=== PATIENT | male | born 1960 | race Caucasian/White ===

== ENCOUNTER 2017-05-04 10:05 | Emergency (ER) | payer OTHER ==
[2017-05-04] MEDS ORDERED: Ketorolac INJ* 30 MG/ML 1 ML VIAL IV PUSH ONE (10:51)
[2017-05-04 10:59] LABS: ABS Basophils 0.1 10^3/ul (0-0.2); ABS Eosinophils 0.2 10^3/ul (0-0.6); ABS Monocytes 0.5 10^3/ul (0-0.8); ABS Nucleated RBC 0 10^3/ul; Hematocrit 43 % (42-52); Hemoglobin 14.7 g/dl (14.0-18.0); Lymphocyte % 29.7 % (25-47); Mean Corpuscular HGB Conc 35 g/dl (31-36); Mean Corpuscular Hemoglobin 30 pg (27-31); Mean Corpuscular Volume 88 fL (80-94); Mean Platelet Volume 8 um3 (7.4-10.4); Nucleated Red Blood Cells % 0; Platelet Count 248 10^3/ul (150-450); Red Blood Count 4.84 10^6/ul (4.0-5.4); Red Cell Distribution Width 12 % (10.5-15); White Blood Count 6.8 10^3/ul (3.5-10.8)
--- NOTE | 2017-05-04 11:11 | RAD ---
HISTORY: Chest pain COMPARISONS: February 25, 2015 VIEWS: 1: frontal portable view of the chest at 11:00 AM FINDINGS: LINES AND TUBES: None. CARDIOMEDIASTINAL SILHOUETTE: The cardiomediastinal silhouette is normal for portable technique. PLEURA: The costophrenic angles are sharp. No pleural abnormalities are noted. LUNG PARENCHYMA: The lungs are clear. ABDOMEN: The upper abdomen is clear. There is no subphrenic gas. BONES AND SOFT TISSUES: No bone or soft tissue abnormalities are noted. IMPRESSION: NO ACTIVE CARDIOPULMONARY DISEASE.
[2017-05-04 11:21] LABS: EGFR Non-African American 106.5 (>60)
[2017-05-04 15:53] VITALS: BP 142/82
--- NOTE | 2017-05-05 09:13 | ED ---
Deepak Arboleda Angela, scribed for Tk Rodney MD on 05/04/17 at 1047 . HPI Chest Pain - HPI Summary HPI Summary: This pt is a 57 y/o male presenting to [facility] c/o left sided chest pain today. Pt states this morning while at work he developed chest pain. His chest pain is described as sharp. Pt rates his pain 9/10 in severity. Pt additionally reports he is mildly SOB. Denies nausea, vomiting, dizziness. Pt is a current tobacco smoker. - History of Current Complaint Chief Complaint: EDChestPainROMI Time Seen by Provider: 05/04/17 10:34 Hx Obtained From: Patient Onset/Duration: Started Hours Ago, Still Present Timing: Lasting Hours Current Severity: Severe Pain Intensity: 9 Pain Scale Used: 0-10 Numeric Chest Pain Location: Left Anterior Chest Pain Radiates: No Character: Sharp/Stabbing - Sharp Aggravating Factor(s): Nothing Alleviating Factor(s): Nothing Associated Signs and Symptoms: Positive: Chest Pain, Shortness of Breath. Negative: Dizziness, Fever, Nausea, Vomiting - Allergy/Home Medications Allergies/Adverse Reactions: Allergies Allergy/AdvReac Type Severity Reaction Status Date / Time No Known Allergies Allergy Verified 06/24/13 13:30 PMH/Surg Hx/FS Hx/Imm Hx Endocrine/Hematology History: Denies: Hx Diabetes Cardiovascular History: Reports: Hx Hypertension Infectious Disease History: No Infectious Disease History: Denies: Traveled Outside the [place] in Last 30 Days - Family History Known Family History: Positive: Diabetes - Father - Social History Alcohol Use: Occasionally Substance Use Type: Reports: None Review of Systems Negative: Fever, Chills Positive: Chest Pain Positive: Shortness Of Breath Negative: Vomiting, Nausea Neurological: Other - NEG: dizziness All Other Systems Reviewed And Are Negative: Yes Physical Exam - Summary Physical Exam Summary: VITAL SIGNS: Reviewed. GENERAL: Patient is a well-developed and nourished male who is lying comfortable in the stretcher. Patient is not in any acute respiratory distress. HEAD AND FACE: No signs of trauma. No ecchymosis, hematomas or skull depressions. No sinus tenderness. EYES: PERRLA, EOMI x 2, No injected conjunctiva, no nystagmus. EARS: Hearing grossly intact. Ear canals and tympanic membranes are within normal limits. MOUTH: Oropharynx within normal limits. NECK: Supple, trachea is midline, no adenopathy, no JVD, no carotid bruit, no c- spine tenderness, neck with full ROM. CHEST: Symmetric. Mild tenderness in the left rib cage. LUNGS: Clear to auscultation bilaterally. No wheezing or crackles. CVS: Regular rate and rhythm, S1 and S2 present, no murmurs or gallops appreciated. ABDOMEN: Soft, non-tender. No signs of distention. No rebound no guarding, and no masses palpated. Bowel sounds are normal. EXTREMITIES: FROM in all major joints, no edema, no cyanosis or clubbing. NEURO: Alert and oriented x 3. No acute neurological deficits. Speech is normal and follows commands. SKIN: Dry and warm Triage Information Reviewed: Yes Vital Signs On Initial Exam: Initial Vitals Temp Pulse Resp BP Pulse Ox 97.7 F 84 18 165/95 94 05/04/17 10:16 05/04/17 10:16 05/04/17 10:16 05/04/17 10:16 05/04/17 10:16 Vital Signs Reviewed: Yes Diagnostics - Vital Signs Vital Signs Temp Pulse Resp BP Pulse Ox 05/04/17 10:16 97.7 F 84 18 165/95 94 - Laboratory Lab Results: Lab Results 05/04/17 05/04/17 05/04/17 Range/Units 10:45 10:45 10:45 WBC 6.8 (3.5-10.8) 10^3/ul RBC 4.84 (4.0-5.4) 10^6/ul Hgb 14.7 (14.0-18.0) g/dl Hct 43 (42-52) % MCV 88 (80-94) fL MCH 30 (27-31) pg MCHC 35 (31-36) g/dl RDW 12 (10.5-15) % Plt Count 248 (150-450) 10^3/ul MPV 8 (7.4-10.4) um3 Neut % (Auto) 58.7 (38-83) % Lymph % (Auto) 29.7 (25-47) % [place] % (Auto) 7.6 H (0-7) % Eos % (Auto) 3.0 (0-6) % Baso % (Auto) 1.0 (0-2) % Absolute Neuts (auto) 4.0 (1.5-7.7) 10^3/ul Absolute Lymphs (auto) 2.0 (1.0-4.8) 10^3/ul Absolute Monos (auto) 0.5 (0-0.8) 10^3/ul Absolute Eos (auto) 0.2 (0-0.6) 10^3/ul Absolute Basos (auto) 0.1 (0-0.2) 10^3/ul Absolute Nucleated RBC 0 10^3/ul Nucleated RBC % 0 Sodium 135 (133-145) mmol/L Potassium 4.0 (3.5-5.0) mmol/L Chloride 103 (101-111) mmol/L Carbon Dioxide 26 (22-32) mmol/L Anion Gap 6 (2-11) mmol/L BUN 10 (6-24) mg/dL Creatinine 0.76 (0.67-1.17) mg/dL Est GFR ( Amer) 136.9 (>60) Est GFR (Non-Af Amer) 106.5 (>60) BUN/Creatinine Ratio 13.2 (8-20) Glucose 109 H (70-100) mg/dL Lactic Acid (0.5-2.0) mmol/L Calcium 9.1 (8.6-10.3) mg/dL Magnesium 2.1 (1.9-2.7) mg/dL Total Bilirubin 0.60 (0.2-1.0) mg/dL AST 27 (13-39) U/L ALT 44 (7-52) U/L Alkaline Phosphatase 77 (34-104) U/L Total Creatine Kinase 103 (10-223) U/L CK-MB (CK-2) 2.6 (0.6-6.3) ng/mL Troponin I 0.00 (<0.04) ng/mL B-Natriuretic Peptide 25 ( - 100) pg/mL Total Protein 7.1 (6.4-8.9) g/dL Albumin 4.3 (3.2-5.2) g/dL Globulin 2.8 (2-4) g/dL Albumin/Globulin Ratio 1.5 (1-3) TSH 2.86 (0.34-5.60) mcIU/mL Thyroxine (T4) 6.34 (6.09-12.23) mcg/mL 05/04/17 05/04/17 Range/Units 10:45 14:53 WBC (3.5-10.8) 10^3/ul RBC (4.0-5.4) 10^6/ul Hgb (14.0-18.0) g/dl Hct (42-52) % MCV (80-94) fL MCH (27-31) pg MCHC (31-36) g/dl RDW (10.5-15) % Plt Count (150-450) 10^3/ul MPV (7.4-10.4) um3 Neut % (Auto) (38-83) % Lymph % (Auto) (25-47) % [place] % (Auto) (0-7) % Eos % (Auto) (0-6) % Baso % (Auto) (0-2) % Absolute Neuts (auto) (1.5-7.7) 10^3/ul Absolute Lymphs (auto) (1.0-4.8) 10^3/ul Absolute Monos (auto) (0-0.8) 10^3/ul Absolute Eos (auto) (0-0.6) 10^3/ul Absolute Basos (auto) (0-0.2) 10^3/ul Absolute Nucleated RBC 10^3/ul Nucleated RBC % Sodium (133-145) mmol/L Potassium (3.5-5.0) mmol/L Chloride (101-111) mmol/L Carbon Dioxide (22-32) mmol/L Anion Gap (2-11) mmol/L BUN (6-24) mg/dL Creatinine (0.67-1.17) mg/dL Est GFR ( Amer) (>60) Est GFR (Non-Af Amer) (>60) BUN/Creatinine Ratio (8-20) Glucose (70-100) mg/dL Lactic Acid 0.8 (0.5-2.0) mmol/L Calcium (8.6-10.3) mg/dL Magnesium (1.9-2.7) mg/dL Total Bilirubin (0.2-1.0) mg/dL AST (13-39) U/L ALT (7-52) U/L Alkaline Phosphatase (34-104) U/L Total Creatine Kinase (10-223) U/L CK-MB (CK-2) (0.6-6.3) ng/mL Troponin I 0.00 (<0.04) ng/mL B-Natriuretic Peptide ( - 100) pg/mL Total Protein (6.4-8.9) g/dL Albumin (3.2-5.2) g/dL Globulin (2-4) g/dL Albumin/Globulin Ratio (1-3) TSH (0.34-5.60) mcIU/mL Thyroxine (T4) (6.09-12.23) mcg/mL Result Diagrams: 05/04/17 10:45 05/04/17 10:45 Lab Statement: Any lab studies that have been ordered have been reviewed, and results considered in the medical decision making process. - Radiology Chest XR Xray Interpretation: No Acute Changes - IMPRESSION: No active cardiopulmonary disease. Dr. Rodney has reviewed this radiology report. Radiology Interpretation Completed By: Radiologist - EKG 10:27 Cardiac Rate: NL EKG Rhythm: Sinus Rhythm - at 82 bpm EKG Interpretation: No ST elevations. Chest Pain Course/Dx - Course Assessment/Plan: This pt is a 57 y/o male presenting to [facility] c/o left sided chest pain today. Pt states this morning while at work he developed chest pain. His chest pain is described as sharp. Pt rates his pain 9/10 in severity. Pt additionally reports he is mildly SOB. Denies nausea, vomiting, dizziness. Pt is a current tobacco smoker. Test results without any significant abnormalities except for glucose of 109. Two troponins, 4 hours apart, are both 0.00. Chest XR shows no active cardiopulmonary disease. EKG shows no ST elevation. In the ED course the pt was given Toradol for the pain and his symptoms resolved. He reports he is feeling better. Therefore, the pt will be discharged to home with follow up from his PCP. He is instructed to return to the ED for any worsening or new symptoms. Pt is hemodynamically stable, alert and oriented x3. - Chest Pain Differential Diagnosis/HQI/PQRI: Acute [place], ACS, Angina, CHF, Chest Wall, GI Disease, Lower Respiratory Infection - Diagnoses Provider Diagnoses: Chest pain Discharge - Discharge Plan Condition: Stable Disposition: HOME Patient Education Materials: Chest Pain (ED) Referrals: Tk Ortez MD [Primary Care Provider] - 3 Days Additional Instructions: Please follow up with your primary care provider. RETURN TO THE ED FOR ANY WORSENING SYMPTOMS. The documentation as recorded by the Deepak schaffer Angela accurately reflects the service I personally performed and the decisions made by , Tk Rodney MD.
== END 2017-05-04 15:52 | disposition home or self-care (01) ==
LOC: ED 10:05
DX: R07.9 Chest pain, unspecified (principal); R06.02 Shortness of breath; F17.200 Nicotine dependence, unspecified, uncomplicated
CPT/HCPCS: 36415; 71045; 80053; 82550; 82553; 83605; 83735; 83880; 84436; 84443; 84484; 85025; 93005; 96374; 99283; J1885

== ENCOUNTER 2017-07-17 04:10 | Emergency (ER) | payer OTHER ==
[2017-07-17] MEDS ORDERED: Naproxen TAB* 250 MG PO ONE (05:07)
[2017-07-17] MEDS ORDERED: Triamcinolone Acetonide* 40 MG/ML 1 ML VIAL IM ONE (05:07)
[2017-07-17 05:44] VITALS: BP 156/91
--- NOTE | 2017-07-17 05:53 | ED ---
Evangelina Arboleda Rebecca, scribed for Alvaro Almaguer MD on 07/17/17 at 0508 . Lower Extremity - HPI Summary HPI Summary: Pt is a 57 y/o M who presents to ED c/o L hip pain. Sx began yesterday morning and has been gradually worsening. Pain is located on the lateral side of the left hip and is moderate, ranked 7/10. [employer] and has not taken any medications for it. Sx aggravated by rest, alleviated by nothing. Denies dysuria, numbness, weakness. 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 Notes that while running, he slipped and fell into the grass 2 days ago. - History of Current Complaint Chief Complaint: EDHipPelvisInjury Stated Complaint: FALL/PAIN Time Seen by Provider: 07/17/17 04:20 Hx Obtained From: Patient Onset of Pain: Days - 1 day, Prior to Arrival Onset/Duration: Still Present Severity Currently: Moderate Pain Intensity: 7 Pain Scale Used: 0-10 Numeric Location: Is Discrete @ - L hip Associated Signs And Symptoms: Positive: Negative Aggravating Factor(s): Other - Rest Alleviating Factor(s): Nothing Able to Bear Weight: Yes - Allergies/Home Medications Allergies/Adverse Reactions: Allergies Allergy/AdvReac Type Severity Reaction Status Date / Time No Known Allergies Allergy Verified 07/17/17 04:19 PMH/Surg Hx/FS Hx/Imm Hx Endocrine/Hematology History: Denies: Hx Diabetes Cardiovascular History: Reports: Hx Hypertension Infectious Disease History: No Infectious Disease History: Denies: Traveled Outside the [place] in Last 30 Days - Family History Known Family History: Positive: Diabetes - Father - Social History Alcohol Use: Occasionally Substance Use Type: Reports: None Smoking Status (MU): Never Smoked Tobacco Review of Systems Negative: dysuria Positive: Arthralgia - L hip pain Negative: Weakness, Numbness All Other Systems Reviewed And Are Negative: Yes Physical Exam - Summary Physical Exam Summary: Appearance: Well appearing, no pain distress Skin: warm, dry, reflects adequate perfusion Head/face: normal Eyes: EOMI, GAYLE ENT: normal Neck: supple, non-tender Respiratory: CTA, breath sounds present Cardiovascular: RRR, pulses symmetrical Abdomen: non-tender, soft Bowel Sounds: present Musculoskeletal: strength/ROM intact, pain to palpation just below the greater trochanter of the left hip Neuro: normal, sensory motor intact, A&Ox3 Triage Information Reviewed: Yes Vital Signs On Initial Exam: Initial Vitals Temp Pulse Resp BP Pulse Ox 98.2 F 98 18 162/104 95 07/17/17 04:15 07/17/17 04:15 07/17/17 04:15 07/17/17 04:15 07/17/17 04:15 Vital Signs Reviewed: Yes Procedures - Procedure Summary Procedure Summary: Injection of trochanteric bursa: Reason: Left trochanteric bursitis Description: The area overlying the left greater trochanter was cleaned with alcohol. The area was injected with a mixture of 40 mg of Kenalog and 0.5 cc of 0.5% bupivacaine. He tolerated this well without complication. Diagnostics - Vital Signs Vital Signs Temp Pulse Resp BP Pulse Ox 07/17/17 04:15 98.2 F 98 18 162/104 95 - Laboratory Lab Statement: Any lab studies that have been ordered have been reviewed, and results considered in the medical decision making process. - Radiology Hip/Pelvis XR Xray Interpretation: No Acute Changes - Limited view of ramus due to lead. The hip was negative. Radiology Interpretation Completed By: ED Physician Re-Evaluation - Re-Evaluation First Eval Re-Evaluation Time: 05:34 Comment: Pt is doing well, injected with Kenolog. Lower Extremity Course/Dx - Course Course Of Treatment: X-ray is negative. The patient has no rash or lesion in the site of discomfort. The pain is at the site of the trochanteric bursa. This was injected. He will follow up with his primary care physician and is placed on NSAID. - Diagnoses Provider Diagnoses: Trochanteric bursitis Discharge - Sign-Out/Discharge Documenting (check all that apply): Discharge/Admit/Transfer - Discharge - Discharge Plan Condition: Improved Disposition: HOME Prescriptions: Naproxen [Naproxen 500 mg tab] 500 mg PO BID PRN #10 tablet.dr PRITCHARD Reason: Pain Patient Education Materials: Hip Bursitis (ED) Forms: *Work Release Referrals: Tk Ortez MD [Primary Care Provider] - Additional Instructions: Ice sore area. Return with fever, worse or other concerns. Call your doctor today to schedule follow-up. - Billing Disposition and Condition Condition: IMPROVED Disposition: HOME The documentation as recorded by the Evangelina schaffer Rebecca accurately reflects the service I personally performed and the decisions made by me, Alvaro Almaguer MD.
--- NOTE | 2017-07-17 08:02 | RAD ---
INDICATION: Right hip pain COMPARISON: None TECHNIQUE: An AP view of the pelvis and AP views of the hip in neutral and abducted position were obtained FINDINGS: Bones: There are no acute bony findings. Note that the inferior pelvis to include the symphysis and pubic rami are incompletely evaluated on the pelvic image due to the lead shield. There is near complete evaluation of the entire pelvis on the subsequent hip series, however. Joint spaces: The hips articulate normally. The joint spaces are preserved. SI joints/symphysis: The SI joints and symphysis are intact. There is mild sclerosis about the symphysis pubis. Other: None IMPRESSION: NO ACUTE PLAIN RADIOGRAPHIC ABNORMALITIES.
== END 2017-07-17 05:45 | disposition home or self-care (01) ==
LOC: ED 04:10
DX: M70.62 Trochanteric bursitis, left hip (principal); M25.552 Pain in left hip
CPT/HCPCS: 96372; 99282; A9270-GY; J3301

== ENCOUNTER 2017-12-15 07:04 | Emergency (ER) | payer OTHER ==
[2017-12-15] MEDS ORDERED: Morphine INJ** 4 MG/ML 1 ML CARPUJECT IV ONE ×2 (07:16→07:55)
--- NOTE | 2017-12-15 07:19 | ED ---
Back Pain - HPI Summary HPI Summary: Pt is a 57 y/o M who presents to ED c/o upper right sided back pain s/p a 20 feet fall from a tree 30 mins prior to arrival to [facility]. He was able to drive himself to hospital. Notes right arm and wrist pain as well. Rates his pain 10/ 10 in severity. Denies injuring his legs or hips from the fall. Denies headache , dizziness, neck pain, head injury or LOC. No medications or blood thinners. - History of Current Complaint Chief Complaint: EDTraumaMultiple Stated Complaint: FALL Hx Obtained From: Patient Onset/Duration: Lasting Minutes, Still Present Onset/Duration: Started Minutes Ago Timing: Constant Back Pain Location: Is Discrete @ - upper right back pain Severity Currently: Severe Pain Intensity: 10 Pain Scale Used: 0-10 Numeric Associated Signs And Symptoms: Positive: Other - right sided back pain, right arm and wrist pain - Allergies/Home Medications Allergies/Adverse Reactions: Allergies Allergy/AdvReac Type Severity Reaction Status Date / Time No Known Allergies Allergy Verified 12/15/17 07:18 PMH/Surg Hx/FS Hx/Imm Hx Endocrine/Hematology History: Denies: Hx Diabetes Cardiovascular History: Reports: Hx Hypertension - Family History Known Family History: Positive: Diabetes - Father - Social History Alcohol Use: Occasionally Substance Use Type: Reports: None Smoking Status (MU): Never Smoked Tobacco Review of Systems Positive: Other - upper right sided back pain, right arm and wrist pain, NEGATIVE: leg pain, hip pain, head injury Neurological: Other - NEGATIVE: dizziness Negative: Headache, Syncope All Other Systems Reviewed And Are Negative: Yes Physical Exam - Summary Physical Exam Summary: Appearance: Well appearing, no pain distress Skin: warm, dry, reflects adequate perfusion Head/face: normal Eyes: EOMI, GAYLE ENT: mucous membranes moist Neck: supple, non-tender Respiratory: CTA, breath sounds present Cardiovascular: Good pulses and extremities and neurovascular intact. RRR, pulses symmetrical Abdomen: no abdominal pain or RUQ tenderness, non-tender, soft Bowel Sounds: present Musculoskeletal: Tenderness and swelling in elbow and radial wrist, tenderness throughout lateral right chest wall, no bruising on chest wall Neuro: normal, sensory motor intact, A&Ox3 Triage Information Reviewed: Yes Vital Signs Reviewed: Yes Procedures - Splinting Right Upper Extremity Location: right upper extremity from wrist through upper arm Hand-Made Type: orthoglass Splint: posterior Pre-Proc Neuro Vasc Exam: normal Post-Proc Neuro Vasc Exam: normal Diagnostics - Laboratory Result Diagrams: 12/15/17 07:44 12/15/17 07:44 Lab Statement: Any lab studies that have been ordered have been reviewed, and results considered in the medical decision making process. - Radiology CXR Radiology Interpretation Completed By: Radiologist - No active cardiopulmonary disease. ED Physician reviewed this report. Right Elbow X Ray Radiology Interpretation Completed By: Radiologist - IMPRESSION: Fracture dislocation of the elbow, involving the proximal radius and proximal ulna. ED Physician reviewed this report. Right Wrist X Ray Radiology Interpretation Completed By: Radiologist - IMPRESSION: Status post internal fixation of the distal radius with chronic posttraumatic deformity of the wrist. No acute osseous injury. ED Physician reviewed this report. Right Shoulder X Ray Radiology Interpretation Completed By: Radiologist - No acute osseous injury. ED Physician reviewed this report. - CT CT Cervical Spine CT Interpretation Completed By: Radiologist - IMPRESSION: MILD DEGENERATIVE DISC DISEASE AND OSTEOARTHRITIS MOST PRONOUNCED AT C5-C6. NO ACUTE OSSEOUS INJURY TO THE CERVICAL SPINE. ED Physician reviewed this report. CT Chest/Abd/Pel CT Interpretation Completed By: Radiologist - IMPRESSION: 1. NONDISPLACED FRACTURES OF THE RIGHT CLAVICLE, RIGHT SEVENTH RIB, RIGHT EIGHTH RIB, AND STERNUM. 2. ATHEROSCLEROSIS. ED Physician reviewed this report. Brain CT CT Interpretation Completed By: Radiologist - IMPRESSION: NO ACUTE INTRACRANIAL PATHOLOGY, THOUGH THE PRESENCE OF INTRAVENOUS CONTRAST LIMITS THE SENSITIVITY FOR SUBARACHNOID HEMORRHAGE. ED Physician reviewed this report. - EKG 9:16 Cardiac Rate: NL - 82 bpm EKG Rhythm: Sinus Rhythm EKG Interpretation: normal axis, normal interval, Q wave on lead III Re-Evaluation - Re-Evaluation First Eval Re-Evaluation Time: 10:00 Change: Improved Second Eval Re-Evaluation Time: 11:16 Change: Improved Back Pain Course/Dx - Course Course Of Treatment: Patient presents with significant upper extremity discomfort after falling out of a tree stand. He has no difficulty in breathing and normal breath sounds bilateral despite pain in his right chest. He reports no injury to his head or neck and he did not lose consciousness. Abdomen is soft without tenderness but there is tenderness in the area of the ribs just overlying the right upper quadrant/liver. CT scan of the chest abdomen pelvis with contrast reveals rib fractures in ribs 7, 8, sternal fracture, right clavicle fracture. Pain in the right wrist despite no fracture. Prior ORIF of this area. Fracture dislocation at the right elbow. Extremity is neurovascularly intact pre-and post posterior splint application. Head CT had been performed after the contrast and was limited for subarachnoid hemorrhage however there is no other injuries found. Again he has no headache and is neurologically intact. Discussed the care with the hospitalist who is uncomfortable given his chest injuries. He suggested the orthopedist admit the patient. Orthopedics with repair of the injury to the elbow however is not comfortable with the chest injuries either. As such they've requested transfer to trauma center. Transfer was arranged to [facility]. The ER physician there accepted the patient who has been stable throughout his ER course. His pain is much better controlled at this point and he is in a splint and sling of the right upper extremity. - Diagnoses Differential Diagnosis/HQI/PQRI: Positive: Other - Intra-abdominal, intrathoracic injury, Fx, Dislocation, occult bleeding, C spine inj. Provider Diagnoses: Fracture dislocation of right elbow joint, Right clavicle fracture, Multiple rib fractures, Fracture of sternum - Provider Notifications Discussed Care Of Patient With: Vladimir Mason Time Discussed With Above Provider: 08:50 Instructed by Provider To: Other - Will see the pt as soon as he is done in OR. Spoke with hospitalist Dr. Lemus at 10:00 who advised to transfer. Spoke with Dr. Johnson at 11:00 who agreed to accept pt at [facility]. - Critical Care Time Critical Care Time: 30-74 min - CCT is exclusive of separately billable procedures Discharge - Sign-Out/Discharge Documenting (check all that apply): Patient Departure - Transfer - Discharge Plan Condition: Fair Disposition: TRANS HIGHER LVL OF CARE FAC Referrals: Tk Ortez MD [Primary Care Provider] - - Billing Disposition and Condition Condition: FAIR Disposition: Trans Higher Lvl of Care Fac - Attestation Statements Document Initiated by Scribe: Yes Documenting Scribe: Cruz Boudreaux Provider For Whom Scribe is Documenting (Include Credential): Dr. Alvaro Almaguer MD Scribe Attestation: ICruz, marlineibed for Dr. Alvaro Almaguer MD on 12/15/17 at 1116. Scribe Documentation Reviewed: Yes Provider Attestation: The documentation as recorded by the scribe, Cruz Boudreaux accurately reflects the service I personally performed and the decisions made by me, Dr. Alvaro Almaguer MD
[2017-12-15] MEDS ORDERED: Morphine INJ* 4 MG/ML 1 ML SYRINGE (NEW SYRINGE VERSION) ONE (07:27)
[2017-12-15] MEDS ORDERED: Ondansetron INJ* 2 MG/ML VIAL ONE (07:49)
[2017-12-15] MEDS ORDERED: Morphine INJ* 4 MG/ML 1 ML SYRINGE (NEW SYRINGE VERSION) IV ONE (07:51)
[2017-12-15] MEDS ORDERED: Ondansetron INJ* 2 MG/ML VIAL IV ONE (07:51)
[2017-12-15 07:58] LABS: ABS Basophils 0.1 10^3/ul (0-0.2); ABS Eosinophils 0.2 10^3/ul (0-0.6); ABS Lymphocytes 2.2 10^3/ul (1.0-4.8); ABS Monocytes 0.6 10^3/ul (0-0.8); ABS Neutrophils 6.4 10^3/ul (1.5-7.7); ABS Nucleated RBC 0 10^3/ul; Eosinophil % 2.3 % (0-6); Hematocrit 45 % (42-52); Hemoglobin 15.8 g/dl (14.0-18.0); Lymphocyte % 23.1 % (25-47); Mean Corpuscular HGB Conc 35 g/dl (31-36); Mean Corpuscular Hemoglobin 31 pg (27-31); Mean Corpuscular Volume 89 fL (80-94); Mean Platelet Volume 9.3 um3 (7.4-10.4); Nucleated Red Blood Cells % 0.1; Platelet Count 332 10^3/ul (150-450); Red Blood Count 5.13 10^6/ul (4.00-5.40); Red Cell Distribution Width 13 % (10.5-15); White Blood Count 9.5 10^3/ul (3.5-10.8)
[2017-12-15] MEDS: Ondansetron INJ* 2 MG/ML VIAL IV ONE ×2 (08:03→09:18)
[2017-12-15 08:06] LABS: INR 0.81 (0.77-1.02)
[2017-12-15 08:07] LABS: EGFR Non-African American 100.4 (>60)
[2017-12-15] MEDS ORDERED: Iohexol 300* (CONTRAST) 10 ML SDV IV ONE (08:16)
[2017-12-15] MEDS ORDERED: HYDROmorphone INJ* 2 MG/ML CARPUJECT SYRINGE IV SLOW PU ONE (08:26)
[2017-12-15] MEDS ORDERED: HYDROmorphone INJ1* 1 MG/ML SYRINGE ONE (08:28)
--- NOTE | 2017-12-15 08:30 | RAD ---
HISTORY: chest injury COMPARISONS: May 04, 2017 VIEWS: 1: frontal AP view of the chest at 7:44 AM FINDINGS: LINES AND TUBES: None. CARDIOMEDIASTINAL SILHOUETTE: The cardiomediastinal silhouette is normal for portable technique. PLEURA: The costophrenic angles are sharp. No pleural abnormalities are noted. LUNG PARENCHYMA: The lung volumes are low. The lungs are clear accounting for the phase of respiration. ABDOMEN: The upper abdomen is clear. There is no subphrenic gas. BONES AND SOFT TISSUES: No bone or soft tissue abnormalities are noted. IMPRESSION: NO ACTIVE CARDIOPULMONARY DISEASE.
--- NOTE | 2017-12-15 08:31 | RAD ---
HISTORY: injury/deformity COMPARISONS: May 09, 2011 VIEWS: 4 , Frontal, lateral, and oblique views of the right wrist FINDINGS: BONE DENSITY: Normal. BONES: There is chronic posttraumatic deformity of the distal radius and distal ulna. There is no acute displaced fracture. The patient is status post internal fixation of the distal radius. There is no hardware failure or osteolysis. JOINTS: There is no arthropathy. ALIGNMENT: There is no dislocation. SOFT TISSUES: Unremarkable. OTHER FINDINGS: None. IMPRESSION: STATUS POST INTERNAL FIXATION OF THE DISTAL RADIUS WITH CHRONIC POSTTRAUMATIC DEFORMITY OF THE WRIST. NO ACUTE OSSEOUS INJURY. IF SYMPTOMS PERSIST, RECOMMEND REPEAT IMAGING
--- NOTE | 2017-12-15 08:32 | RAD ---
HISTORY: injury, right elbow injury COMPARISONS: None VIEWS: 3 , Frontal, lateral, and oblique views of the right elbow FINDINGS: BONE DENSITY: Normal. BONES: There is comminuted slightly displaced fracture of the radial head with a comminuted fracture through the coronoid process of the ulna. JOINTS: There is no arthropathy. ALIGNMENT: There is anterior dislocation of the humerus with respect to the proximal radius and ulna. SOFT TISSUES: Unremarkable. OTHER FINDINGS: None. IMPRESSION: FRACTURE DISLOCATION OF THE ELBOW, INVOLVING THE PROXIMAL RADIUS AND PROXIMAL ULNA
--- NOTE | 2017-12-15 08:46 | RAD ---
HISTORY: injury COMPARISONS: None VIEWS: 4 , Frontal internal rotation, external rotation, outlet, and axillary views of the right shoulder FINDINGS: BONE DENSITY: Normal. BONES: There is no displaced fracture. JOINTS: There is no arthropathy. ALIGNMENT: There is no dislocation. SOFT TISSUES: Unremarkable. OTHER FINDINGS: None. IMPRESSION: NO ACUTE OSSEOUS INJURY. IF SYMPTOMS PERSIST, RECOMMEND REPEAT IMAGING.
[2017-12-15] MEDS ORDERED: Pantoprazole IV* 40 MG IV ONE (09:13)
--- NOTE | 2017-12-15 09:27 | RAD ---
HISTORY: fall, serious RUE injuries COMPARISONS: None TECHNIQUE: Multiple contiguous axial CT scans were obtained of the cervical spine without intravenous contrast, with coronal and sagittal multiplanar reformations. FINDINGS: BRAIN: The visualized brain is unremarkable CENTRAL CANAL: Evaluation of the central canal is limited on CT technique; however, there is no obvious canalicular mass or epidural hemorrhage. ALIGNMENT: The alignment is normal, without subluxation or dislocation. VERTEBRAL BODIES: There is anterolateral marginal osteophyte formation most pronounced at C5-C6. There is no displaced fracture. JOINTS: There is mild uncovertebral hypertrophy. MUSCULATURE: Unremarkable INTERVERTEBRAL DISCS: There is diffuse loss of intervertebral disc height. AXIAL IMAGES: C2-C3: There is no osseous neural foraminal narrowing or central canal stenosis. C3-C4: There is no osseous neural foraminal narrowing or central canal stenosis. C4-C5: There is no osseous neural foraminal narrowing or central canal stenosis. C5-C6: There is moderate right neuroforaminal narrowing. There is no osseous central canal stenosis. C6-C7: There is no osseous neural foraminal narrowing or central canal stenosis. C7-T1: There is no osseous neural foraminal narrowing or central canal stenosis. SOFT TISSUES: The visualized soft tissues of the neck are unremarkable. The prevertebral fat stripe is preserved. OTHER: None. IMPRESSION: MILD DEGENERATIVE DISC DISEASE AND OSTEOARTHRITIS MOST PRONOUNCED AT C5-C6. NO ACUTE OSSEOUS INJURY TO THE CERVICAL SPINE.
--- NOTE | 2017-12-15 09:34 | RAD ---
HISTORY: chest, RUQ injury COMPARISONS: None TECHNIQUE: Multiple contiguous axial CT scans were obtained of the chest, abdomen, and pelvis after the administration of intravenous contrast. Coronal and sagittal multiplanar reformations are submitted for review.. Oral contrast was not administered. Delayed images were obtained through the abdomen and pelvis. FINDINGS: CHEST NECK AND THYROID: The lower neck and thyroid are unremarkable. CHEST WALL: There is no lower cervical, axillary, or supraclavicular lymphadenopathy by size criteria. HEART AND PERICARDIUM: The heart is unremarkable. AORTA AND PULMONARY VASCULATURE: There is calcification of the thoracic aorta. The pulmonary vasculature is unremarkable. MEDIASTINUM: There is no mediastinal lymphadenopathy by size criteria. SANGITA: There is no hilar lymphadenopathy by size criteria. AIRWAY AND ESOPHAGUS: The airway is unremarkable, without endobronchial filling defect. The esophagus is grossly normal. LUNG PARENCHYMA: There is dependent atelectasis of the lung bases bilaterally. PLEURA: No pleural abnormalities are noted. BONES AND SOFT TISSUES: There is a nondisplaced fracture of the right eighth rib. There is no displaced fracture of the right seventh rib. There is a nondisplaced fracture through the proximal sternum, best seen on sagittal image 43. There is a nondisplaced fracture of the medial right clavicle ABDOMEN/PELVIS: LIVER: The liver is normal in shape, size, contour, and attenuation. BILE DUCTS: There is no intrahepatic or extrahepatic biliary dilatation. GALLBLADDER: The gallbladder is normal, without pericholecystic inflammatory change. PANCREAS: The pancreas is normal, without mass or ductal dilatation. SPLEEN: Normal in size and appearance. UPPER GI TRACT: Evaluation of the gastrointestinal tract is limited by incomplete gastric distention. The upper GI tract is unremarkable. SMALL BOWEL & MESENTERY: The small bowel is normal in contour, course, and caliber. There is no obstruction or dilatation. COLON: The colon is normal in contour, course, caliber. There is no pericolonic inflammatory change. ADRENALS: Normal bilaterally. KIDNEYS: Renal cysts are noted. There is no hydronephrosis or nephrolithiasis. BLADDER: The bladder is smooth in contour. PELVIC ORGANS: The prostate gland is normal. The seminal vesicles are symmetric. AORTA: There is calcific atherosclerotic disease of the abdominal aorta and its branches, without aneurysmal dilatation IVC: Unremarkable LYMPH NODES: There is no lymphadenopathy by size criteria. ABDOMINAL WALL: There is no evidence for abdominal wall hernia. BONES AND SOFT TISSUES: There are mild diffuse degenerative changes. OTHER: None IMPRESSION: 1. NONDISPLACED FRACTURES OF THE RIGHT CLAVICLE, RIGHT SEVENTH RIB, RIGHT EIGHTH RIB, AND STERNUM. 2. ATHEROSCLEROSIS.
--- NOTE | 2017-12-15 10:54 | RAD ---
HISTORY: trauma, fall COMPARISONS: None TECHNIQUE: Multiple contiguous axial CT scans were obtained of the head without intravenous contrast. Please note that this study was performed after a contrast-enhanced CT of the chest, abdomen and pelvis FINDINGS: The presence of intravenous contrast limits the sensitivity for subarachnoid hemorrhage. HEMORRHAGE/INFARCT: There is no hemorrhage or acute infarct. MASSES/SHIFT: There is no mass or shift. EXTRA-AXIAL SPACES: There are no extra-axial fluid collections. SULCI AND VENTRICLES: The sulci and ventricles are normal in size and position for the patient's stated age. CEREBRUM: There are no focal parenchymal abnormalities. BRAINSTEM: There are no focal parenchymal abnormalities. CEREBELLUM: There are no focal parenchymal abnormalities. VESSELS: The vessels are grossly normal. PARANASAL SINUSES: The paranasal sinuses are clear. ORBITS: The orbits are unremarkable. BONES AND SOFT TISSUE: No bone or soft tissue abnormalities are noted. OTHER: None IMPRESSION: NO ACUTE INTRACRANIAL PATHOLOGY, THOUGH THE PRESENCE OF INTRAVENOUS CONTRAST LIMITS THE SENSITIVITY FOR SUBARACHNOID HEMORRHAGE.
[2017-12-15] MEDS ORDERED: HYDROmorphone INJ1* 1 MG/ML SYRINGE IV SLOW PU ONE (12:00)
[2017-12-15 12:10] VITALS: BP 156/93
== END 2017-12-15 12:12 | disposition short-term general hospital (02) ==
LOC: ED 07:04
DX: S42.017A Nondisplaced fracture of sternal end of right clavicle, initial encounter for closed fracture (principal); S22.20XA Unspecified fracture of sternum, initial encounter for closed fracture; S22.31XA Fracture of one rib, right side, initial encounter for closed fracture; S52.121A Displaced fracture of head of right radius, initial encounter for closed fracture; S52.041A Displaced fracture of coronoid process of right ulna, initial encounter for closed fracture; W14.XXXA Fall from tree, initial encounter; Y92.9 Unspecified place or not applicable
CPT/HCPCS: 36415; 70450; 71045; 71260; 72125; 74177; 80053; 83690; 84484; 85025; 85610; 85730; 93005; 96374; 96375; 96376; 99284; J1170; J2270; J2405; Q9967

== ENCOUNTER 2017-12-21 05:52 | Observation (INO) | payer OTHER ==
[~2017-12-21 05:52] MED LIST: Buffered Lidocaine 0.9% SYRIN* 5 ML/SYR SYRINGE INTRADERM ONE; Levalbuterol 0.63MG/3ML NEB* UNIT OF USE INH PRN
[2017-12-21] MEDS ORDERED: Gabapentin CAP(*) 300 MG PO ONE (06:00)
[2017-12-21] MEDS ORDERED: Acetaminophen TAB* 325 MG PO ONE (06:00)
[2017-12-21] MEDS ORDERED: Aspirin 81 mg CHEW TAB* 81 MG TAB.CHEW PO ONE (06:50)
[2017-12-21] MEDS ORDERED: Nitroglycerin TAB 0.4 MG* 0.4 MG TAB SL ONE (06:50)
[2017-12-21] MEDS ORDERED: Aspirin 81 mg CHEW TAB* 81 MG TAB.CHEW ONE (06:52)
[2017-12-21] MEDS ORDERED: Morphine VIAL* 10 MG/ML 1 ML VIAL ONE (06:52)
[2017-12-21] MEDS ORDERED: Nitroglycerin TAB 0.4 MG* 0.4 MG TAB ONE (06:52)
[2017-12-21] MEDS ORDERED: hydrALAZINE IV* 20 MG/ML VIAL IV SLOW PU PRN (07:00)
[2017-12-21] MEDS ORDERED: Ondansetron INJ* 2 MG/ML VIAL IV PRN (07:18)
[2017-12-21] MEDS ORDERED: Acetaminophen TAB* 325 MG PO PRN ×2 (07:18→15:30)
[2017-12-21 07:25] LABS: ABS Basophils 0 10^3/ul (0-0.2); ABS Eosinophils 0.1 10^3/ul (0-0.6); ABS Lymphocytes 1.1 10^3/ul (1.0-4.8); ABS Monocytes 0.6 10^3/ul (0-0.8); ABS Neutrophils 6.7 10^3/ul (1.5-7.7); ABS Nucleated RBC 0 10^3/ul; Hematocrit 40 % (42-52); Hemoglobin 13.7 g/dl (14.0-18.0); Lymphocyte % 12.7 % (25-47); Mean Corpuscular HGB Conc 35 g/dl (31-36); Mean Corpuscular Hemoglobin 31 pg (27-31); Mean Corpuscular Volume 88 fL (80-94); Mean Platelet Volume 8.9 um3 (7.4-10.4); Nucleated Red Blood Cells % 0.3; Platelet Count 300 10^3/ul (150-450); Red Blood Count 4.47 10^6/ul (4.00-5.40); Red Cell Distribution Width 13 % (10.5-15); White Blood Count 8.4 10^3/ul (3.5-10.8)
[2017-12-21 07:40] LABS: EGFR Non-African American 129.8 (>60)
--- NOTE | 2017-12-21 07:53 | RAD ---
Indication: Chest pain. Single frontal view of the chest performed at 0700 hours was reviewed. Comparison is made with previous exam dated December 15, 2017. No mediastinal shift is noted. Heart is of normal size and configuration. Lung b[place] appear clear. IMPRESSION: NO ACTIVE CARDIOPULMONARY DISEASE IS NOTED. R1NF
[2017-12-21] MEDS: Aspirin 81 mg CHEW TAB* 81 MG TAB.CHEW PO SCH (08:04)
[2017-12-21] MEDS: Metoprolol Tartrate TAB* 25 MG PO SCH ×2 (08:04→20:34)
[2017-12-21 08:57] LABS: INR 0.9 (0.77-1.02)
--- NOTE | 2017-12-21 10:14 | HP ---
AMENDED REPORT NOW INCLUDES DESIGNATED COSIGNER CC: Dr. Mason; Dr. Ortez * HISTORY AND PHYSICAL: DATE OF ADMISSION: 12/21/17 PRIMARY CARE PROVIDER: Dr. Ortez. ATTENDING PHYSICIAN WHILE IN THE HOSPITAL: Paula Graham MD * (report dictated by Sy Sy NP) CONSULTING ORTHOPEDIST: Dr. Mason. CHIEF COMPLAINT: Chest pain. HISTORY OF PRESENTING ILLNESS: Mr. Rodriguez is a 57-year-old male patient that presented to the ER on 12/15/17 with complaints of a fall out of a tree stand. He unfortunately sustained significant fractures. He fractured the sternum. He has a nondisplaced clavicular fracture. He has 2 rib fractures on the right side, in addition to this he had a pretty significant fracture of the right upper extremity. He sought care with Dr. Mason. He was to undergo a procedure today, ORIF of this extremity. Whilst being prepared in the preop holding area , it was noted that the patient started having some left-sided chest discomfort , which he described as a pressure. He says it started about an hour ago around 5 o'clock. He had no associated diaphoresis, nausea. He says that prior to his fall, he did have cold symptoms, but he says he has not been having any chest pain with the exception of today and he said the pain felt different than the pain he had been having and it is now on the left side, it is not radiating into the jaw or down the neck and he says actually the pain has been coming and going, and before I left the preop holding area, he said the pain actually was gone. It was noted that his blood pressure was quite elevated in the preop holding area, his blood pressure was noted to be systolics of 210/90. He denied any visual changes and denied having any headache. Because of the chest pain, Anesthesia was alerted. They had asked us to come evaluate and Dr. Mason had asked us to evaluate as well. PAST MEDICAL HISTORY: Significant for: 1. Hypertension, although not on any medications. 2. Hyperlipidemia, although not on any medications. 3. Recent history of rib fractures along with a right upper extremity fracture. PAST SURGICAL HISTORY: He has had ORIF of the bilateral upper extremities. HOME MEDICATIONS: He states the only medication currently he is taking is hydrocodone 1 to 2 tablets every 4 to 6 hours as needed. ALLERGIES TO MEDICATIONS: Include no known drug allergies. FAMILY HISTORY: He says his mother at the age of 72, he is not sure as to what was the cause of . He does state that his father does have heart disease, but there was no mention of heart attacks before the age of 50. SOCIAL HISTORY: He is a former smoker, he quit about 5 years ago. He is a drinker, he drinks about a 6 pack of beer a day. Surrogate decision maker is his . REVIEW OF SYSTEMS: There is no documented fever. He denied having any significant weight change. There is no double vision. He denies having any ear discharge. There is no rhinorrhea. He denies having any sore throat. No thyroid enlargement. There is chest pain per my HPI. There is no orthopnea. There is no nocturnal dyspnea. He denies having any abdominal pain. There was no nausea, no vomiting. No dysuria, no frequency. No seizure, no loss of consciousness. No pruritus and no skin ulcerations. Review of 14 systems completed, all others negative. PHYSICAL EXAMINATION These are over in the preop holding. GENERAL: At this time, Mr. Rodriguez is a 57-year-old male patient. He is sitting in the preop holding bed. He does not appear to be in any acute distress. VITAL SIGNS: Blood pressure of 210/99 with a pulse of 103, respirations 18, O2 sat 96%. HEENT: Head atraumatic and normocephalic. Eyes: EOMs are intact. Sclerae anicteric and not pale. Throat: Oral mucosa appears to be moist. No oropharyngeal erythema. NECK: Supple. LUNGS: Clear to auscultation bilaterally. There were no wheezes, rales, or rhonchi. HEART: Sounds S1, S2. Regular rate and rhythm. No murmurs, rubs, or gallops. ABDOMEN: Soft, flat, nontender. Bowel sounds were present. EXTREMITIES: Pulses were 2+ throughout the right upper extremity. Distal CSM checks are intact. It is splinted at this point with an Phillip dressing and a splint. NEUROLOGICAL: He is awake, he is alert, he is oriented x3. His tongue is midline. 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 He had no gross focal deficits. SKIN: Intact. DIAGNOSTIC STUDIES/LAB DATA: Labs are pending currently, but I did get a stat EKG which does show a normal sinus rhythm. He had no ST elevation. It does show an inverted T-wave in lead 3, but he has had that previously. There were no significant changes from his previous EKG and no signs of acute ischemia. He did have a chest x-ray obtained today and again, I am waiting for CBC, troponin, and CMP currently. Chest x-ray shows no acute infiltrates or pleural effusions were noted. He does appear to be slightly rotated in this film. He had multiple imaging done about a week ago. Chest, abdomen, pelvis CT, impression: Nondisplaced fracture of the right clavicle, right 7th rib, right 8th rib, and sternum; atherosclerosis. He had a wrist x-ray, which showed status post internal fixation of the distal radius and chronic posttraumatic deformity of the wrist, no acute osseous injury. He had a cervical spine CT which showed mild degenerative disk disease and osteoarthritis most pronounced at C5-6, no acute osseous injury. He had a shoulder x-ray which showed no acute osseous injury. Brain CT which showed no intracranial pathology, though the presence of IV contrast limits the evaluation for subarachnoid hemorrhage. Upper extremity CT done 2 days ago shows impression: Right elbow fracture dislocation as described. No significant fracture fragment alignment compared to 12/17/17 exam. Old medical records were reviewed. ASSESSMENT AND PLAN: Mr. Rodriguez is a 57-year-old male patient presenting again to Dr. Kunz's services today for an ORIF of his right elbow. Whilst in the preop holding area, there were complaints of chest pain and we were asked to evaluate for admission. He will be admitted under observation status for: 1. Chest pain. Again, this could be musculoskeletal; however, the patient is a 57- year-old male with a history of smoking and has a history of hypertension and untreated hyperlipidemia. His EKG fortunately does not show ST elevated myocardial infarction. His chest x-ray does appear to be stable and he also does have a pretty significantly elevated blood pressure. My plan would be to minimally cycle his troponins, possibly check an echo and place him on telemetry. I have started him on oxygen. I have given him nitro and I have also given 4 baby aspirin for the time being until I know what his troponins are going to do. I would like to cycle those and obviously get better control of the blood pressure. I have given him nitro and I have ordered p.r.n. hydralazine. I would consider starting either beta- magdaleno or possibly Norvasc for the blood pressure. 2. Hypertension. Again, at this point we are going to give him sublingual nitro. I will give him p.r.n. hydralazine. Most likely, we will add low-dose beta-magdaleno as well and see if this helps the blood pressure. My goal is to try to get his blood pressure systolic less than 170. 3. DVT prophylaxis. We will start him on heparin subcu. 4. Right elbow fracture. Defer the management to Dr. Mason and his team. 5. Fluids, electrolytes, nutrition. He can have a heart healthy diet and n.p.o. after midnight. 6. Code status, he is a full code. TIME SPENT: Time spent on the admission was 60 minutes; greater than half the time was spent [id number] with the patient obtaining my history and physical, other half of the time was spent going over the plan of care with the patient and implementing plan of care. I did discuss the plan of care with my attending, Dr. Graham; she is in agreement. SY SY NP [id number]/[facility] #: [id number] YAMEL
[2017-12-21 11:10] LABS: Urine Appearance Cloudy; Urine Blood Negative (Negative); Urine Color Yellow; Urine Ketones 1+ (Negative); Urine Protein Negative (Negative); Urine Specific Gravity 1.021 (1.010-1.030); Urine Urobilinogen Positive (Negative)
[2017-12-21] MEDS: HYDROcodone/ACETAMIN 5-325 MG* 1 TAB PO PRN ×2 (12:41→20:34)
[2017-12-21] MEDS ORDERED: Iohexol 350* (CONTRAST) 500 ML MDV IV ONE (13:30)
[2017-12-21] MEDS: Heparin VIAL(*) 5000 UNITS/ML VIAL (FIVE THOUSAND) SUBCUT SCH ×2 (13:48→20:35)
--- NOTE | 2017-12-21 13:52 | RAD ---
INDICATION: Chest pain evaluate for pulmonary embolism. COMPARISON: Comparison is made with a prior CT of the chest from December 15, 2017. TECHNIQUE: A CT angiogram of the chest was performed with intravenous following intravenous injection of 80 ml of Omnipaque 350 nonionic contrast. Contiguous axial sections were obtained from the lung apices through the lung bases. Images were reconstructed in the coronal and sagittal planes. FINDINGS: PULMONARY ARTERIES: There is relatively homogeneous opacification of the pulmonary arteries. No intraluminal filling defect or pulmonary embolism is seen. HEART: The heart is within normal limits in size. No pericardial effusion is present. There are coronary calcifications present. THORACIC AORTA: The thoracic aorta is normal in caliber. There is mild calcific plaque present. LUNGS: There is a small dependent right lower lobe infiltrate with air bronchograms and a small right pleural effusion. There is a minimal infiltrate present dependently at the left lung base suggestive of atelectasis. MEDIASTINUM: No significant enlarged mediastinal or hilar lymph nodes are seen. ABDOMEN: No acute findings are seen on the visualized portion of the upper abdomen. BONES: There is a comminuted fracture of the medial aspect of the right clavicle. There are nondisplaced fractures of the right lateral seventh and eighth ribs. IMPRESSION: 1. NO EVIDENCE FOR PULMONARY EMBOLISM. 2. SMALL RIGHT LOWER LOBE INFILTRATE AND PLEURAL EFFUSION, NEW FROM THE PRIOR STUDY. 3. FRACTURE OF THE RIGHT CLAVICLE, RIGHT SEVENTH AND EIGHTH LATERAL RIBS.
--- NOTE | 2017-12-21 14:42 | PN ---
Subjective Date of Service: 12/21/17 Interval History: Pt noted left upper chest pain that was "different" from his sternal fx chest pain, but there was point tenderness in the area indicated by pt. since his fall from a tree 1 weeks ago the most bothersome is the pain in R arm. Was noted to have intermittently elevated BP t PCP's but not treated Objective Active Medications: Acetaminophen (Tylenol Tab*) 650 mg PO Q4H PRN PRN Reason: FEVER/PAIN Hydrocodone Bitart/Acetaminophen ([place] 5-325 Tab*) 2 tab PO Q4H PRN PRN Reason: PAIN Last Admin: 12/21/17 12:41 Dose: 2 tab Aspirin (Aspirin 81 Mg Chew Tab*) 81 mg PO DAILY [facility] Last Admin: 12/21/17 08:04 Dose: 81 mg Heparin Sodium (Porcine) (Heparin Vial(*)) 5,000 units SUBCUT Q8HR [facility] Stop: 12/21/17 23:59 Last Admin: 12/21/17 13:48 Dose: 5,000 units Hydralazine HCl (Apresoline Iv*) 5 mg IV SLOW PU Q6H PRN PRN Reason: BLOOD PRESSURE Influenza Virus Vaccine (Fluarix *Quad* *) 0.5 ml IM .ONCE ONE Stop: 12/21/17 15:01 Levalbuterol HCl (Xopenex 0.63mg/3ml Neb*) 0.63 mg INH ONCE PRN PRN Reason: WHEEZING Stop: 12/21/17 15:00 Metoprolol Tartrate (Lopressor Tab*) 25 mg PO BID [facility] Last Admin: 12/21/17 08:04 Dose: 25 mg Ondansetron HCl (Zofran Inj*) 4 mg IV Q6H PRN PRN Reason: NAUSEA Vital Signs - 8 hr 12/21/17 12/21/17 12/21/17 06:52 06:55 07:00 Temperature Pulse Rate 103 100 110 Respiratory 18 18 20 Rate Blood Pressure 210/99 234/109 164/103 (mmHg) O2 Sat by Pulse 96 96 93 Oximetry 12/21/17 12/21/17 12/21/17 07:01 07:05 07:10 Temperature Pulse Rate 109 110 104 Respiratory 19 18 19 Rate Blood Pressure 166/107 155/98 (mmHg) O2 Sat by Pulse 92 92 94 Oximetry 12/21/17 12/21/17 12/21/17 07:15 07:20 07:25 Temperature Pulse Rate 101 98 103 Respiratory 19 20 21 Rate Blood Pressure 154/115 159/102 169/101 (mmHg) O2 Sat by Pulse 95 95 96 Oximetry 12/21/17 12/21/17 12/21/17 07:30 07:45 07:48 Temperature 98.9 F Pulse Rate 96 98 98 Respiratory 20 20 8 Rate Blood Pressure 163/103 160/98 160/98 (mmHg) O2 Sat by Pulse 96 96 96 Oximetry 12/21/17 12/21/17 12/21/17 08:00 08:01 08:15 Temperature Pulse Rate 94 101 94 Respiratory 0 7 17 Rate Blood Pressure 164/91 156/96 (mmHg) O2 Sat by Pulse 92 94 93 Oximetry 12/21/17 12/21/17 12/21/17 08:30 08:45 09:00 Temperature Pulse Rate 87 78 82 Respiratory 17 4 17 Rate Blood Pressure 159/91 142/87 141/94 (mmHg) O2 Sat by Pulse 93 93 93 Oximetry 12/21/17 12/21/17 12/21/17 09:01 09:15 09:30 Temperature Pulse Rate 85 78 77 Respiratory 18 7 4 Rate Blood Pressure 151/96 144/83 (mmHg) O2 Sat by Pulse 94 94 93 Oximetry 12/21/17 12/21/17 12/21/17 10:00 10:31 11:00 Temperature Pulse Rate 79 78 77 Respiratory 7 22 18 Rate Blood Pressure 128/77 126/78 (mmHg) O2 Sat by Pulse 94 93 95 Oximetry 12/21/17 12/21/17 12/21/17 11:01 12:00 12:01 Temperature 98.3 F Pulse Rate 75 72 71 Respiratory 14 15 12 Rate Blood Pressure 129/81 (mmHg) O2 Sat by Pulse 94 92 93 Oximetry 12/21/17 12/21/17 12/21/17 13:00 13:50 14:00 Temperature Pulse Rate 82 82 82 Respiratory 12 19 16 Rate Blood Pressure 139/80 127/74 (mmHg) O2 Sat by Pulse 94 94 93 Oximetry 12/21/17 14:01 Temperature Pulse Rate 75 Respiratory 21 Rate Blood Pressure (mmHg) O2 Sat by Pulse 92 Oximetry Oxygen Devices in Use Now: None Appearance: 57 yo M in nAD, aAOx3 Eyes: No Scleral Icterus, PERRLA Ears/Nose/Mouth/Throat: NL Teeth, Lips, Gums, Mucous Membranes Moist Neck: NL Appearance and Movements; NL JVP, Trachea Midline Respiratory: Symmetrical Chest Expansion and Respiratory Effort, Clear to Auscultation Cardiovascular: NL Sounds; No Murmurs; No JVD, RRR - point tendernes over palpation of sternum and left upper chest Abdominal: NL Sounds; No Tenderness; No Distention, No Hepatosplenomegaly Lymphatic: No Cervical Adenopathy Extremities: No Edema, No Clubbing, Cyanosis, - - R arm in splint Skin: No Nodules or Sclerosis, - - ecchymosis b/l upper thighs after a fall 1 week ago Neurological: Alert and Oriented x 3 Result Diagrams: 12/21/17 06:35 12/21/17 06:35 Microbiology and Other Data: Microbiology 12/21/17 07:45 Nasal Screen MRSA (PCR) - Final Nasal Mrsa Not Detected Assess/Plan/Problems-Billing Assessment: 57 yo M with h/o HTN(not treated), fell 20 feet from a tree when hunting. Has 2 rib fx on R, sternal fx, R wrist fx and R ulnar fx. c/o CP on the of scheduled surgery for R arm and was admitted for further w-up of CP - Patient Problems (1) Chest pain Comment: has point tenderness in left upper chest CTA neg for PE trops neg and EKG unremarkable Echo pending. So far I find no contraindications to R arm surgery for tomorrow. D/w anesthesiology (2) HTN (hypertension) Comment: cont lopressor started today (3) Rib fractures Comment: as well as sternal fx and r arm fractures-as per ortho (4) DVT prophylaxis Comment: HSQ (5) Lung infiltrate Comment: suspect it's lung contusion (CT findings similar to 1 weeks ago after trauma), no symptoms of infection. will check CRP Status and Disposition: inpatient
[2017-12-21] MEDS ORDERED: LORazepam TAB(*) 1 MG PO SCH (16:00)
--- NOTE | 2017-12-21 17:49 | ECHO ---
Patient: VARINDER SHAW [facility] Rec#: [id number] : 1960 Date: 12/21/2017 Age: 57y Height: 179 cm / 70.5 in Weight: 92.99 kg / 204.9 lbs Sex: M BSA: 2.12 Room#: ICU-1 Admit Date#: 12/21/2017 Type: Inpatient Referring: Sy Sy NP Reading: Catherine Flynn MD Internal Medicine Physician Assistant: Brittany Springer RDCS CC: Tk Ortez MD Transthoracic Echocardiogram Indication: Chest pain BP: 155/98 HR: 84 Rhythm: NSR with PVCs Findings History: HTN, smoker. Technical Comments: The study quality is fair. Completed at 1510. Left Ventricle: The left ventricular chamber size is normal. Mild concentric left ventricular hypertrophy is observed. There is normal left ventricular systolic function. The estimated ejection fraction is 55-60%. There is septal flattening of the interventricular septum consistent with right ventricular volume or pressure overload. There is no consistent Doppler evidence of clinically significant diastolic dysfunction. Left Atrium: The left atrium is slightly dilated. Right Ventricle: Moderator Band present. The right ventricle is mildly dilated. The right ventricular global systolic function is normal. Right Atrium: The right atrium is mildly dilated. Aortic Valve: The aortic valve is trileaflet. There is no evidence of aortic valve thickening. There is no evidence of aortic regurgitation. There is no evidence of aortic stenosis. Mitral Valve: The mitral valve leaflets are mildly thickened. There is a trace of mitral regurgitation. There is no evidence of mitral stenosis. Tricuspid Valve: The tricuspid valve leaflets are normal. There is mild tricuspid regurgitation. The right ventricular systolic pressure is estimated at 37 mmHg. There is evidence of mild pulmonary hypertension. There is no tricuspid stenosis. Pulmonic Valve: The pulmonic valve appears normal. There is a trace pulmonic regurgitation. There is no pulmonic stenosis. Pericardium: There is no significant pericardial effusion. A pericardial fat pad is visualized. Aorta: There is no dilatation of the ascending aorta. The aortic arch is not well visualized. The aortic root is normal in size. Pulmonary Artery: The main pulmonary artery appears normal. Venous: The inferior vena cava is dilated. There is a greater than 50% respiratory change in the inferior vena cava dimension. Summary: There are no significant changes when compared to the previous study done on 03/29/2011, no overt significant changes Conclusions The left ventricular chamber size is normal. Mild concentric left ventricular hypertrophy is observed. There is normal left ventricular systolic function. The estimated ejection fraction is 55-60%. There is septal flattening of the interventricular septum consistent with right ventricular volume or pressure overload. The left atrium is slightly dilated. The right ventricle is mildly dilated. The right atrium is mildly dilated. There is a trace of mitral regurgitation. There is mild tricuspid regurgitation. There is evidence of mild pulmonary hypertension. There is a trace pulmonic regurgitation. Measurements Name Value Normal Range RVIDd (AP) 2D 2.8 cm (0.9 - 2.6) RVDdMajor (2D) 4.8 cm (2.2 - 4.4) RAd ISD 4CH 5 cm (3.4 - 4.9) RA (A4C)W 3.9 cm (2.9 - 4.6) IVSd (2D) 1.2 cm (0.6 - 1) LVPWd (2D) 1.2 cm (0.6 - 1) LVIDd (2D) 4.8 cm (3.6 - 5.4) LVIDs (2D) 3 cm - LV FS (2D) 38 % (25 - 45) Aortic Annulus 2 cm (1.4 - 2.6) Ao root diameter (2D) 3.3 cm (2.1 - 3.5) Ascending Ao 3.3 cm (2.1 - 3.4) LA dimension (AP) 2D 4.1 cm (2.3 - 3.8) LAd ISD 4CH 5 cm (2.9 - 5.3) LA ISD 4CH W 4 cm (2.5 - 4.5) Name Value Normal Range LA ESV BP (A/L) index 19.4 ml/m2 - Name Value Normal Range MV E-wave Vmax 0.7 m/sec - MV deceleration time 180 msec - MV A-wave Vmax 0.6 m/sec - MV E:A ratio 1.2 ratio - LV septal e' Vmax 0.07 m/sec - LV lateral e' Vmax 0.11 m/sec - LV E:e' septal ratio 10 ratio - LV E:e' lateral ratio 6.36 ratio - Name Value Normal Range AV Vmax 1.1 m/sec - AV VTI 23.2 cm - AV peak gradient 5 mmHg - AV mean gradient 2 mmHg - LVOT Vmax 0.9 m/sec - LVOT VTI 22.8 cm - LVOT peak gradient 4 mmHg - LVOT mean gradient 2 mmHg - Name Value Normal Range TR Vmax 2.7 m/sec - TR peak gradient 29 mmHg - RAP 8 mmHg - RVSP 37 mmHg - IVC diameter 2.2 cm - Name Value Normal Range PV Vmax 1.2 m/sec - PV peak gradient 6 mmHg -
[2017-12-22 05:53] LABS: ABS Basophils 0.1 10^3/ul (0-0.2); ABS Eosinophils 0.1 10^3/ul (0-0.6); ABS Lymphocytes 1.5 10^3/ul (1.0-4.8); ABS Monocytes 0.7 10^3/ul (0-0.8); ABS Neutrophils 6.4 10^3/ul (1.5-7.7); ABS Nucleated RBC 0 10^3/ul; Eosinophil % 1.5 % (0-6); Hematocrit 40 % (42-52); Hemoglobin 13.6 g/dl (14.0-18.0); Lymphocyte % 16.8 % (25-47); Mean Corpuscular HGB Conc 34 g/dl (31-36); Mean Corpuscular Hemoglobin 31 pg (27-31); Mean Corpuscular Volume 90 fL (80-94); Mean Platelet Volume 8.8 um3 (7.4-10.4); Nucleated Red Blood Cells % 0.1; Platelet Count 284 10^3/ul (150-450); Red Blood Count 4.46 10^6/ul (4.00-5.40); Red Cell Distribution Width 13 % (10.5-15); White Blood Count 8.7 10^3/ul (3.5-10.8)
[2017-12-22 06:13] LABS: EGFR Non-African American 129.8 (>60)
[2017-12-22] MEDS ORDERED: Propofol* 10 MG/ML 20 ML BTL IV PUSH ONE (07:45)
[2017-12-22] MEDS ORDERED: Midazolam* 1 MG/ML 5 ML VIAL (5 MG) ONE (07:45)
[2017-12-22] MEDS ORDERED: fentaNYL* 50 MCG/ML 5 ML VIAL (250 MCG VIAL) ONE ×2 (07:45→10:01)
[2017-12-22] MEDS ORDERED: Atracurium* 10 MG/ML 10 ML VIAL ONE ×2 (07:45→09:46)
[2017-12-22] MEDS ORDERED: [UNRECOGNIZED DRUG - OTHER] IVPB ONE (08:01)
[2017-12-22] MEDS ORDERED: CEFAZOLIN IVPB ONE (08:01)
--- NOTE | 2017-12-22 08:02 | PN ---
Progress Note - Progress Note Date of Service: 12/22/17 Note: He has been evaluated medically and is now ready for surgery. The plan is for repair of the right elbow fracture dislocation.
[2017-12-22] MEDS ORDERED: Phenylephrine IV* 40 MCG/ML 10 ML SYRINGE ONE (08:47)
[2017-12-22] MEDS ORDERED: Dexamethasone IV* 4 MG/ML 1 ML (4 MG) ONE (08:47)
[2017-12-22] MEDS ORDERED: EPHEDrine (Pressors)* 50 MG/ML VIAL ONE (08:47)
[2017-12-22] MEDS: Aspirin 81 mg CHEW TAB* 81 MG TAB.CHEW PO SCH (09:43)
[2017-12-22] MEDS: Folic Acid TAB* 1 MG PO SCH (09:43)
[2017-12-22] MEDS: Multivitamins/Minerals TAB PO SCH (09:43)
[2017-12-22] MEDS: Metoprolol Tartrate TAB* 25 MG PO SCH ×2 (09:43→21:58)
[2017-12-22] MEDS: Thiamine TAB* 100 MG TAB PO SCH (09:43)
[2017-12-22] MEDS ORDERED: Ondansetron INJ* 2 MG/ML VIAL IV PRN (11:09)
[2017-12-22] MEDS ORDERED: oxyCODONE/Acetamin 5/325 MG* TAB PO PRN (11:09)
[2017-12-22] MEDS ORDERED: Naloxone* 0.4 MG/ML 1 ML VIAL IV PRN (11:09)
[2017-12-22] MEDS ORDERED: HYDROmorphone INJ1* 1 MG/ML SYRINGE IV PRN (11:09)
[2017-12-22] MEDS ORDERED: DiMENhydriNATE IV* 50 MG/ML VIAL IV PUSH PRN (11:09)
[2017-12-22] MEDS ORDERED: Ondansetron INJ* 2 MG/ML VIAL ONE (11:53)
[2017-12-22] MEDS ORDERED: Ketorolac INJ* 30 MG/ML 1 ML VIAL ONE (11:53)
[2017-12-22] MEDS ORDERED: Vancomycin(*) 1,000 MG VIAL ONE (12:25)
[2017-12-22] MEDS ORDERED: fentaNYL* 50 MCG/ML 2 ML VIAL (100 MCG VIAL) ONE ×2 (12:44→14:07)
[2017-12-22] MEDS ORDERED: Bupivacaine 0.25% SDV* 30 ML ONE ×2 (13:08→13:11)
--- NOTE | 2017-12-22 13:22 | CONS ---
CONSULTATION REPORT: DATE OF CONSULT: 12/22/17 CHIEF COMPLAINT: Right elbow injury. HISTORY OF PRESENT ILLNESS: Vargas is a patient who was brought in initially for outpatient surgery. He was having chest pain, so was admitted for cardiac evaluation. He denies any other events. He is feeling better this morning. PAST MEDICAL HISTORY: Hypertension, hyperlipidemia, recent trauma with a proximal clavicle and some right rib fracture as well as right elbow fracture, dislocation. PAST SURGICAL HISTORY: He has undergone ORIF bilateral upper extremities; on the right it is the dis lizett radius. HOME MEDICATIONS: Just the pain medication prescribed after his trauma. ALLERGIES: No known drug allergies. FAMILY HISTORY: Noncontributory. SOCIAL HISTORY: He is a former smoker. He quit about 5 years ago. He drinks about a 6-pack beer a day. REVIEW OF SYSTEMS: Currently, he denies any chest pain or shortness of breath. PHYSICAL EXAMINATION: Afebrile. Vital signs are stable. General: Awake and alert, in no distress this morning. Skin: Visualized skin is intact. There is a splint in place. Musculoskeletal: He m oves the fingers well, minimal swelling in the hand. DIAGNOSTIC STUDIES/LAB DATA: No new x-rays of the right arm. IMPRESSION: Right elbow, very severe f racture/dislocation. PLAN: He has been evaluated medically. We deemed him appropriate for surgery this morning. Therefo re, we will take him for surgery. The plan will be for repair of right elbow fracture/dislocation. [id number]/[facility] #: [id number]
[2017-12-22] MEDS ORDERED: HYDROcodone/ACETAMIN 5-325 MG* 1 TAB ONE (14:08)
[2017-12-22] MEDS: HYDROcodone/ACETAMIN 5-325 MG* 1 TAB PO PRN ×2 (14:10→18:42)
[2017-12-22] MEDS: fentaNYL* 50 MCG/ML 2 ML VIAL (100 MCG VIAL) IV PRN ×4 (14:12→14:23)
--- NOTE | 2017-12-22 15:06 | PN ---
Subjective Date of Service: 12/22/17 Interval History: Pt is seen post op. Mildly sedated, c/o severe pain post op arm Objective Active Medications: Acetaminophen (Tylenol Tab*) 650 mg PO Q4H PRN PRN Reason: PAIN Hydrocodone Bitart/Acetaminophen ([place] 5-325 Tab*) 2 tab PO Q4H PRN PRN Reason: PAIN Last Admin: 12/22/17 14:10 Dose: 2 tab Aspirin (Aspirin 81 Mg Chew Tab*) 81 mg PO DAILY [facility] Last Admin: 12/22/17 09:43 Dose: Not Given Dimenhydrinate (Dramamine Iv*) 25 mg IV PUSH ONCE PRN PRN Reason: NAUSEA/VOMITING Fentanyl Citrate (Fentanyl*) 25 mcg IV Q2M PRN PRN Reason: PAIN - MODERATE Last Admin: 12/22/17 14:23 Dose: 25 mcg Folic Acid (Folvite Tab*) 1 mg PO DAILY [facility] Last Admin: 12/22/17 09:43 Dose: Not Given Hydralazine HCl (Apresoline Iv*) 5 mg IV SLOW PU Q6H PRN PRN Reason: BLOOD PRESSURE Hydromorphone HCl (Dilaudid Inj1s*) 0.2 mg IV Q5M PRN PRN Reason: PAIN - SEVERE Lorazepam (Ativan Tab(*)) 0 - 6 mg PO .PER [facility] PROTOCOL [facility]; Protocol Metoprolol Tartrate (Lopressor Tab*) 25 mg PO BID [facility] Last Admin: 12/22/17 09:43 Dose: Not Given Morphine Sulfate (Morphine Inj (Syringe)*) 2 mg IV Q4H PRN PRN Reason: PAIN Multivitamins/Minerals (Theragran/Minerals Tab*) 1 tab PO DAILY [facility] Last Admin: 12/22/17 09:43 Dose: Not Given Naloxone HCl (Narcan*) 0.08 mg IV Q2M PRN PRN Reason: severe induced resp depression Ondansetron HCl (Zofran Inj*) 4 mg IV Q6H PRN PRN Reason: NAUSEA Ondansetron HCl (Zofran Inj*) 4 mg IV ONCE PRN PRN Reason: NAUSEA/VOMITING Oxycodone/Acetaminophen (Percocet 5/325 Tab*) 1 tab PO ONCE PRN PRN Reason: PAIN - MODERATE Thiamine HCl (Vitamin B-1 Tab*) 100 mg PO DAILY [facility] Last Admin: 12/22/17 09:43 Dose: Not Given Vital Signs - 8 hr 12/22/17 12/22/17 12/22/17 07:23 07:30 13:26 Temperature 98.4 F 97.3 F Pulse Rate 87 Respiratory 20 16 16 Rate Blood Pressure 139/79 (mmHg) O2 Sat by Pulse 94 Oximetry 12/22/17 12/22/17 12/22/17 13:27 13:28 13:30 Temperature Pulse Rate 115 115 111 Respiratory 18 20 Rate Blood Pressure 142/84 135/85 (mmHg) O2 Sat by Pulse 95 94 94 Oximetry 12/22/17 12/22/17 12/22/17 13:35 13:40 13:45 Temperature Pulse Rate 106 113 117 Respiratory 13 14 16 Rate Blood Pressure 141/89 146/92 139/86 (mmHg) O2 Sat by Pulse 92 93 97 Oximetry 12/22/17 12/22/17 12/22/17 14:00 14:01 14:10 Temperature Pulse Rate 116 116 Respiratory 14 17 16 Rate Blood Pressure 127/84 (mmHg) O2 Sat by Pulse 92 92 Oximetry 12/22/17 12/22/17 12/22/17 14:12 14:15 14:16 Temperature Pulse Rate 110 Respiratory 16 12 16 Rate Blood Pressure 132/82 (mmHg) O2 Sat by Pulse 92 Oximetry 12/22/17 12/22/17 12/22/17 14:20 14:23 14:55 Temperature 96.6 F Pulse Rate 118 Respiratory 18 11 16 Rate Blood Pressure 161/84 (mmHg) O2 Sat by Pulse 98 Oximetry Oxygen Devices in Use Now: None Appearance: 57 yo M in nAD, aAOx Eyes: No Scleral Icterus, PERRLA Ears/Nose/Mouth/Throat: NL Teeth, Lips, Gums, Mucous Membranes Moist Neck: NL Appearance and Movements; NL JVP, Trachea Midline Respiratory: Symmetrical Chest Expansion and Respiratory Effort, Clear to Auscultation Cardiovascular: NL Sounds; No Murmurs; No JVD, RRR Abdominal: NL Sounds; No Tenderness; No Distention Lymphatic: No Cervical Adenopathy Extremities: No Edema, No Clubbing, Cyanosis, - - R arm in splint Skin: No Nodules or Sclerosis, - - R thigh ecchymosis Result Diagrams: 12/22/17 05:29 12/22/17 05:29 Microbiology and Other Data: Microbiology 12/21/17 07:45 Nasal Screen MRSA (PCR) - Final Nasal Mrsa Not Detected Assess/Plan/Problems-Billing Assessment: 57 yo M with h/o HTN(not treated), fell 20 feet from a tree when hunting. Has 2 rib fx on R, sternal fx, R wrist fx and R ulnar fx. c/o CP on the of scheduled surgery for R arm and was admitted for further w-up of CP - Patient Problems (1) Chest pain Comment: has point tenderness in left upper chest CTA neg for PE trops neg and EKG unremarkable Echo shows EF WNL and RV volume overlad. Telem d/c'd (2) HTN (hypertension) Comment: cont lopressor s (3) Rib fractures Comment: as well as sternal fx and r arm fractures-as per ortho s/p R elbow fx and dislocation surgery by DR. Mason on 12/22/17 (4) Lung infiltrate Comment: suspect it's lung contusion (CT findings similar to 1 weeks ago after trauma), no symptoms of infection. (5) LFT elevation Comment: mild, improving, ? passive congestion(in conjuction with RV overload and HTN). Pt may be a candidate for diuretic once further from surgery (6) DVT prophylaxis Comment: HSQ Status and Disposition: inpatient
[2017-12-22] MEDS ORDERED: Morphine INJ* 4 MG/ML 1 ML SYRINGE (NEW SYRINGE VERSION) ONE (15:32)
[2017-12-22] MEDS: Morphine INJ* 4 MG/ML 1 ML SYRINGE (NEW SYRINGE VERSION) IV PRN ×2 (15:36→20:22)
--- NOTE | 2017-12-22 16:24 | RAD ---
INDICATION: Operative reduction internal fixation of the right elbow status post fracture dislocation. COMPARISON: Comparison is made with a prior x-ray study of the right elbow from December 17, 2017. TECHNIQUE: 14.6 seconds of intermittent fluoroscopic guidance were provided and 5 spot films of the right elbow were obtained in the operating room. FINDINGS: The films demonstrate operative reduction internal fixation of fractures of the proximal ulna and distal humerus and status post replacement of the radial head with a prosthesis. IMPRESSION: INTRAOPERATIVE CONTROL FILMS. CPT II Codes: G9500
[2017-12-22] MEDS: ceFAZolin* 2 GM* Q8H (Duplex) IVPB SCH (17:05)
--- NOTE | 2017-12-22 20:51 | OP ---
OPERATIVE REPORT: DATE OF OPERATION: 12/22/17 DATE OF : [birth year] SURGEON: Vladimir Mason MD ELIGIBILITY SERVICES REPRESENTATIVE: MARKO De Leon An undertaker assistant was needed for the entirety of the procedure to aid in positioning of the arm and retraction. ANESTHESIOLOGIST: Dr. Huertas. ANESTHESIA: General. PRE-OP DIAGNOSIS: Right elbow terrible triad fracture dislocation involving significant portion of the proximal ulnar articular surface. POST-OP DIAGNOSIS: Right elbow terrible triad fracture dislocation involving significant portion of the proximal ulnar articular surface. OPERATIVE PROCEDURE: 1. Repair of right elbow fracture dislocation with radial head replacement, lateral collateral ligament repair and [employer] internal joint stabilizer placement. 2. Reconstruction of right elbow anteromedial facet of the coronoid with radial head autogenous osteochondral graft. Please note that due to the severe instability of the joint and near complete loss of the coronoid this was substantially more difficult than the normal surgery and required substantially more time and placement of the internal joint stabilizer device. INDICATIONS: Olvin 1 week ago had a right elbow fracture dislocation. He was sent [facility] to [facility] due to multiple other injuries. They evaluated him and discharged him. He returned dislocated significantly. He had severe coronoid loss and proximal ulnar articular surface loss. I had talked to him about the risks and benefits of surgery. I was not sure if the coronoid would be repairable and I talked to him about the need to potentially reconstruct it. He also understood the need for likely radial head replacement and he wished to proceed with surgery. He certainly understands the risks of infection, recurrent instability and stiffness as well as neurovascular injury. FINDINGS: See above and below. ESTIMATED BLOOD LOSS: 100 mL. COMPLICATIONS: None. DESCRIPTION OF PROCEDURE: Olvin was seen in the preoperative holding area. We came back to the operating room where the arm was scrubbed and then prepped and draped in the usual fashion. He was positioned supine on the operating room table with the use of a hand table. A time-out was performed. I exsanguinated the arm with the Esmarch and the tourniquet was inflated to 250 mmHg. I made an extensile lateral incision centered over the lateral epicondyle. Dissection was carried down and full-thickness flaps were raised off the fascia. I released the lateral soft tissues including anteriorly by curving around the anterior portion of the capitellum and then continuing the incision in line with the radius. Proximally, I released the capsule anteriorly and posteriorly allowing for visualization of the joint surface from the lateral aspect. The radial head fracture was noted. There was about 30% to 40% loss of the radial head. I attempted to try to repair it; however, the 30% to 40% was fractured off and sitting just distal in between the ulna and the radius was actually broken into multiple pieces and would not have allowed for fixation and I do not think it would have been able to heal. I therefore made the decision to excise the radial head. He did have a significant shaft component. I did attempt to fix the radial neck component with a couple of cerclage wires. Ultimately, by the time I ended up making my neck cut, it was so proximal that fixing the remainder of the radial neck fragment was not going to be possible. I went ahead and booked open the joint and retrieved the osteochondral fragments sitting in the posterior joint. I also retrieved the osteochondral fragments sitting more anteriorly in the ulnohumeral joint. There was a large coronoid piece sitting posterior to the distal humerus. It was in 2 fragments with a longitudinal split. The lateral piece side of it was a more robust piece. The medial side was essentially just a shearing off the articular cartilage and with a very small amount of subchondral bone. I then decided I need to come medial to try to either repair or reconstruct the coronoid. I made a curvilinear incision over the medial arm. Dissection was carried down and full-thickness flaps were raised off the flexor pronator fascia. I came anterior and made a muscle split just anterior to the FCU muscle. I used an over the top approach to gain access to the coronoid and ulnohumeral joint. With the instability in the elbow, I had excellent visualization from the medial approach. I was able to prepare the fracture bed and then reduce the free fragment back into place. I placed 1 guidewire for the 2.5-mm [employer] headless compression screw in the lateral piece and 1 in the medial piece. The medial piece was very tenuous. I measured, drilled and placed a 30-mm x 2.5-mm headless compression screw into the lateral piece and this provided excellent fixation and compression and the piece was anatomically reduced. When I came medial, the piece split as I placed the screw and dislodged. The screw was therefore removed. Given that that piece was the majority of the anteromedial facet, I thought it prudent to reconstruct the piece. At this point, I had already prepared my radial neck with the [employer] broaches followed by the trial implant and trial head. Ultimately, it was a # 12 stem and a 24-mm head. The head actually measured 26-mm, but I downsized 1 size as it just seemed a little large. I went ahead and placed the definitive stem and then the head piece. The aiming guide was used placing the tip of the aiming guide in the fovea. With the guide 90 degrees to the arm, the forearm was pronated 20 degrees and then the torque wrench was used to place the set screw in the correct position. Tourniquet at this point was deflated. We took a tourniquet holiday and then I re- exsanguinated the arm and reinflated the tourniquet to 275 mmHg. At this point, I had to reconstruct the anteromedial facet as the elbow would not have done well without it. I took my radial head and I used the sagittal saw to contour an appropriately size piece. The proximal articulating surface was placed against the trochlea. Once I had the graft appropriately contoured, I held it in place while we placed the guidewire for the 2.5-mm cannulated screw. I then measured, overdrilled the wire. This time, I used the opening drill to create a little more room for the starting hole. I then placed the 30- mm x 2.5-mm headless compression screw. There was excellent purchase. There was excellent compression and no splitting of the fragment. The alignment was excellent. With the anteromedial coronoid reconstructed, I went ahead and turned my attention to placing the IJS. Prior to placing the radial head, I had used the aiming guide on the trochlea to place a 1.5-mm K-wire in the isometric position. This was confirmed on fluoroscopy on both the AP and lateral views. I therefore at this point went ahead and placed my plate on the proximal ulna and the 3 cortical screws were placed in standard fashion, first in the oblong and then the most distal and then most proximal screw out the tip of the olecranon. The plate was excellently fixed. I therefore brought in the connecting arm and attached the pin to the arm of the connecting arm. I then placed the pin and tightened everything down. The excess part of the aiming arm was clipped with the wireless watcher. When I final tightened everything, the hand was draped over the face to provide an excellent reduction of the joint and maximum congruency. After the IJS was placed, the elbow had a full congruent stable motion arc. Even prior to placing the IJS, it was fairly stable, but definitely dislocated as I brought the arm more out into extension. Lastly, I went ahead and closed the medial soft tissue structures. The deep layer was closed with 0 Vicryl. The superficial layer was also closed with 0 Vicryl. The subcutaneous tissue was reapproximated with 2-0 Vicryl and the skin was closed with cholo. I had placed some vanco powder in the wound and into the medial side of the joint prior to closing. I then came lateral and I placed a Mitek suture anchor just proximal to my IJS peg. I then whipstitched with both of the #2 Orthocords down into the lateral collateral ligament. This was tied off. This provided an excellent repair of the lateral collateral ligament. The remainder of the fascia was closed in 1 full layer with the 0 Vicryl suture over the radial head and distally just the superficial layer was closed with 0 Vicryl suture. The subcutaneous tissue was reapproximated with 2- 0 Vicryl and the skin was closed with cholo. 0.25% Marcaine was infiltrated all about the wounds. Final fluoroscopic imaging revealed a stable congruent joint in maximal extension. The wounds were dressed and a long arm splint with a lateral buttress was applied. Tourniquet was deflated and the hand pinked up immediately. He was then taken to the recovery room in stable condition. [id number]/[facility] #: [id number] YAMEL
[2017-12-23] MEDS: HYDROcodone/ACETAMIN 5-325 MG* 1 TAB PO PRN ×3 (00:30→10:19)
[2017-12-23] MEDS: ceFAZolin* 2 GM* Q8H (Duplex) IVPB SCH ×2 (00:32→08:10)
[2017-12-23] MEDS: Morphine INJ* 4 MG/ML 1 ML SYRINGE (NEW SYRINGE VERSION) IV PRN ×3 (03:50→12:34)
[2017-12-23 05:45] LABS: ABS Basophils 0.1 10^3/ul (0-0.2); ABS Eosinophils 0.1 10^3/ul (0-0.6); ABS Neutrophils 8.9 10^3/ul (1.5-7.7); ABS Nucleated RBC 0 10^3/ul; Eosinophil % 0.4 % (0-6); Hematocrit 37 % (42-52); Hemoglobin 12.7 g/dl (14.0-18.0); Lymphocyte % 16.3 % (25-47); Mean Corpuscular HGB Conc 34 g/dl (31-36); Mean Corpuscular Hemoglobin 31 pg (27-31); Mean Corpuscular Volume 90 fL (80-94); Mean Platelet Volume 8.3 um3 (7.4-10.4); Nucleated Red Blood Cells % 0; Platelet Count 357 10^3/ul (150-450); Red Blood Count 4.14 10^6/ul (4.00-5.40); Red Cell Distribution Width 13 % (10.5-15)
[2017-12-23] MEDS ORDERED: Heparin VIAL(*) 5000 UNITS/ML VIAL (FIVE THOUSAND) SUBCUT SCH (06:00)
[2017-12-23 06:03] LABS: EGFR Non-African American 106.5 (>60)
[2017-12-23] MEDS: Folic Acid TAB* 1 MG PO SCH (08:11)
[2017-12-23] MEDS: Multivitamins/Minerals TAB PO SCH (08:11)
[2017-12-23] MEDS: Aspirin 81 mg CHEW TAB* 81 MG TAB.CHEW PO SCH (08:11)
[2017-12-23] MEDS: Thiamine TAB* 100 MG TAB PO SCH (08:11)
[2017-12-23] MEDS ORDERED: Metoprolol Tartrate TAB* 25 MG PO SCH (09:00)
--- NOTE | 2017-12-23 12:11 | PN ---
Progress Note - Progress Note Date of Service: 12/23/17 SOAP: Subjective: Pt sitting comfortably in chair. Complains of pain in right elbow. No other complaints. Denies CP, SOB, F/C Vital Signs: Temp Pulse Resp BP Pulse Ox 98.1 F 85 14 120/74 96 12/23/17 08:02 12/23/17 08:02 12/23/17 12:34 12/23/17 08:02 12/23/17 08:02 Laboratory Last Values WBC 12.0 10^3/ul (3.5-10.8) H 12/23/17 05:33 RBC 4.14 10^6/ul (4.00-5.40) 12/23/17 05:33 Hgb 12.7 g/dl (14.0-18.0) L 12/23/17 05:33 Hct 37 % (42-52) L 12/23/17 05:33 MCV 90 fL (80-94) 12/23/17 05:33 MCH 31 pg (27-31) 12/23/17 05:33 MCHC 34 g/dl (31-36) 12/23/17 05:33 RDW 13 % (10.5-15) 12/23/17 05:33 Plt Count 357 10^3/ul (150-450) 12/23/17 05:33 MPV 8.3 um3 (7.4-10.4) 12/23/17 05:33 Neut % (Auto) 74.0 % (38-83) 12/23/17 05:33 Lymph % (Auto) 16.3 % (25-47) L 12/23/17 05:33 [place] % (Auto) 8.4 % (0-7) H 12/23/17 05:33 Eos % (Auto) 0.4 % (0-6) 12/23/17 05:33 Baso % (Auto) 0.9 % (0-2) 12/23/17 05:33 Absolute Neuts (auto) 8.9 10^3/ul (1.5-7.7) H 12/23/17 05:33 Absolute Lymphs (auto) 2.0 10^3/ul (1.0-4.8) 12/23/17 05:33 Absolute Monos (auto) 1.0 10^3/ul (0-0.8) H 12/23/17 05:33 Absolute Eos (auto) 0.1 10^3/ul (0-0.6) 12/23/17 05:33 Absolute Basos (auto) 0.1 10^3/ul (0-0.2) 12/23/17 05:33 Absolute Nucleated RBC 0 10^3/ul 12/23/17 05:33 Nucleated RBC % 0 12/23/17 05:33 INR (Anticoag Therapy) 0.90 (0.77-1.02) 12/21/17 08:21 APTT 24.9 seconds (26.0-36.3) L 12/21/17 08:21 D-Dimer, Quantitative 883 ng/mL (Less Than 230) H 12/21/17 08:21 Sodium 135 mmol/L (135-145) 12/23/17 05:33 Potassium 3.6 mmol/L (3.5-5.0) 12/23/17 05:33 Chloride 100 mmol/L (101-111) L 12/23/17 05:33 Carbon Dioxide 30 mmol/L (22-32) 12/23/17 05:33 Anion Gap 5 mmol/L (2-11) 12/23/17 05:33 BUN 13 mg/dL (6-24) 12/23/17 05:33 Creatinine 0.76 mg/dL (0.67-1.17) 12/23/17 05:33 Est GFR ( Amer) 128.8 (>60) 12/23/17 05:33 Est GFR (Non-Af Amer) 106.5 (>60) 12/23/17 05:33 BUN/Creatinine Ratio 17.1 (8-20) 12/23/17 05:33 Glucose 121 mg/dL (70-100) H 12/23/17 05:33 Hemoglobin A1c 5.3 % (4.0-5.6) 12/22/17 05:29 Calcium 8.9 mg/dL (8.6-10.3) 12/23/17 05:33 Total Bilirubin 0.80 mg/dL (0.2-1.0) 12/23/17 05:33 AST 40 U/L (13-39) H 12/23/17 05:33 ALT 59 U/L (7-52) H 12/23/17 05:33 Alkaline Phosphatase 74 U/L (34-104) 12/23/17 05:33 Troponin I 0.00 ng/mL (<0.04) 12/21/17 12:49 C-Reactive Protein 5.04 mg/L (<8.01) 12/21/17 06:35 B-Natriuretic Peptide 11 pg/mL (-100) 12/21/17 06:35 Total Protein 6.2 g/dL (6.4-8.9) L 12/23/17 05:33 Albumin 3.8 g/dL (3.2-5.2) 12/23/17 05:33 Globulin 2.4 g/dL (2-4) 12/23/17 05:33 Albumin/Globulin Ratio 1.6 (1-3) 12/23/17 05:33 Triglycerides 143 mg/dL 12/22/17 05:29 Cholesterol 185 mg/dL 12/22/17 05:29 LDL Cholesterol 126 mg/dL 12/22/17 05:29 HDL Cholesterol 30.9 mg/dL 12/22/17 05:29 Urine Color Yellow 12/21/17 10:10 Urine Appearance Cloudy 12/21/17 10:10 Urine pH 6.0 (5-9) 12/21/17 10:10 Ur Specific [place] 1.021 (1.010-1.030) 12/21/17 10:10 Urine Protein Negative (Negative) 12/21/17 10:10 Urine Ketones 1+ (Negative) A 12/21/17 10:10 Urine Blood Negative (Negative) 12/21/17 10:10 Urine Nitrate Negative (Negative) 12/21/17 10:10 Urine Bilirubin Negative (Negative) 12/21/17 10:10 Urine Urobilinogen Positive (Negative) A 12/21/17 10:10 Ur Leukocyte Esterase Negative (Negative) 12/21/17 10:10 Urine Glucose Negative (Negative) 12/21/17 10:10 Urine Opiates Screen None detected (None Detect) 12/21/17 10:10 Ur Barbiturates Screen None detected (None Detect) 12/21/17 10:10 Ur Phencyclidine Scrn None detected (None Detect) 12/21/17 10:10 Ur Amphetamines Screen None detected (None Detect) 12/21/17 10:10 U Benzodiazepines Scrn None detected (None Detect) 12/21/17 10:10 Urine Cocaine Screen None detected (None Detect) 12/21/17 10:10 U Cannabinoids Screen None detected (None Detect) 12/21/17 10:10 Objective: Splint C/D/I, Swelling in the fingers. Moves fingers well. Sensation intact to light touch distally. Assessment: s/p Repair right elbow fracture/dislocation POD #1 Plan: OOB Pain control Will start on Keflex 500mg for 5 days orally outpatient DC home today if medically stable
[2017-12-23 13:54] VITALS: BP 131/71
--- NOTE | 2017-12-24 02:10 | DS ---
CC: Tk Ortez MD; Vladimir Mason MD * DISCHARGE SUMMARY: DATE OF ADMISSION: 12/21/17 DATE OF DISCHARGE: 12/23/17 PRIMARY CARE PROVIDER: Tk Ortez MD DISCHARGE DIAGNOSES: 1. Chest pain developed in patient who was prepared for surgery of his right arm with CTA negative for pulmonary embolism and grossly unremarkable transthoracic echocardiogram at admission and negative troponins and acute coronary syndrome at that point was ruled out. 2. Status post repair of the right elbow fracture dislocation and radial head replacement, lateral collateral ligament repair and skeletal dynamics internal joint stabilizer placement as well as reconstruction of right elbow anterior medial facet of the coronoid with radial head of the chondral graft performed by Dr. Mason on 12/22/17. 3. Hypertension. SECONDARY DIAGNOSES: Status post recent trauma of falling off the tree from the height of 20 feet and subsequent clavicular fracture, 2 rib fractures as well as sternal fracture. In addition to that, the patient was diagnosed with right lung contusion and right elbow fracture. MEDICATIONS AT DISCHARGE: Include: 1. Metoprolol tartrate 12.5 mg b.i.d. 2. [place] 2 tablets every 4 hours p.r.n. The patient was prescribed a total of 40 tablets and I-STOP was checked. He has not had narcotics filled in the past 6 months. LABORATORY DATA AND STUDIES PERFORMED DURING THE HOSPITAL STAY: Included: On , white blood cell count of 12.0, hemoglobin of 12.7, hematocrit of 37, and platelets of 357. Sodium was 135, potassium 3.6, chloride 100, carbon dioxide 30, BUN 13, creatinine 0.76. Liver function tests showed AST of 40, ALT of 59, total bilirubin of 0.8. Cholesterol profile showed triglycerides of 143, cholesterol total of 185, LDL of 126, and HDL of 30. CT angiogram of the chest obtained on 12/21/17, impression: "No evidence of pulmonary embolism. Small right lower lobe infiltrate and pleural effusion, new from the prior study. Fracture of the right clavicle, right seventh and eighth lateral ribs." Transthoracic echocardiogram obtained on 12/21/17 showed left ventricular chamber size was normal. The EF of 55% to 60%, mild concentric LVH. Septal flattening was noted with intraventricular septum consistent with right ventricular volume and pressure overload. HOSPITALIZATION COURSE: Olvin Rodriguez is a 57-year-old male who fell down from a tree a week prior to presentation to this hospital on 12/21/17 for repair of one of his fractures. He was supposed to have a repair of his right elbow fracture performed by Dr. Mason on 12/21/17, but he was noted to be markedly hypertensive with a blood pressure in the 200s with uncontrolled pain at that point and complaining of left upper chest pain. At this point, the patient was placed on overnight observation on telemetry monitored bed to rule out coronary syndrome. During his inpatient stay, his troponins were negative. His echo showed no significant abnormalities apart from mild right-sided volume overload. The patient also had CTA, which showed infiltrates at the base of the right lung, which was likely related to lung contusion. The patient, at that point, was fit for surgery that occurred on 12/22/17, was performed by Dr. Mason. His right upper extremity then was placed postoperatively in cast. The patient then stayed overnight for observation. On 12/23/17, the patient was ready to go home. The narcotics that he was prescribed as outpatient previously apparently were not filled by the patient since according to I-STOP, he had not had any narcotics filled in the past 6 months. He was prescribed a total of 40 tablets of [place]. For his hypertension that was previously not treated, metoprolol tartrate was prescribed. The patient is recommended to follow up with his primary care provider in approximately 4 to [address] Mason in approximately 1 week. PHYSICAL EXAMINATION AT DISCHARGE: Blood pressure of 120/71, heart rate of 85 and regular, respiratory rate of 16, oxygen saturation 96% on room air, temperature 98.1. General: The patient is a very pleasant 57-year-old male, who is in no acute distress. Alert, awake, and oriented x3. HEENT: Head: Atraumatic, normocephalic. Eyes: Pupils equal and reactive to light and accommodation. Oropharynx clear. Mucosa moist. Neck: Supple. No JVD. No bruits bilaterally. Cardiovascular: Regular rate and rhythm. No murmur. Respiratory: Clear to auscultation bilaterally. Abdomen: Soft, nontender. Bowel sounds present in all 4 quadrants. Extremities: There is trace bilateral pedal edema. Pulses +2 bilaterally. There is no clubbing or cyanosis. The right upper extremity is placed in a cast. On evaluation of the skin, the patient has small ecchymotic areas on his right thigh after his fall. Psychiatric Evaluation: Alert and oriented x3. Pleasant and cooperative with evaluation with no evidence of anxiety or depression. Please note that this is a short summary of the patient's hospitalization. Please refer to further medical records for details. TIME SPENT: Approximately 45 minutes were spent on the patient's discharge. [id number]/[facility] #: [id number] YAMEL
== END 2017-12-23 13:00 | disposition home or self-care (01) | DRG 315 ==
LOC: OR 05:52 → ICU 06:51 → UNDOADMOB 06:51 → ICU 07:12 → OBSVTOIN 10:00 → INTOOBSV 10:00 → MEDTELE 15:14 → SSU 12-22 12:39 → UNDODISIN 12-24 01:56 → SSU 01-15 07:26
PROVIDERS: ADMIT Internal Medicine; ATTEND Internal Medicine
DX: S52.121A Displaced fracture of head of right radius, initial encounter for closed fracture (principal); S27.321A Contusion of lung, unilateral, initial encounter; S22.20XA Unspecified fracture of sternum, initial encounter for closed fracture; S22.41XA Multiple fractures of ribs, right side, initial encounter for closed fracture; S52.501P Unspecified fracture of the lower end of right radius, subsequent encounter for closed fracture with malunion; S42.001A Fracture of unspecified part of right clavicle, initial encounter for closed fracture; S52.131A Displaced fracture of neck of right radius, initial encounter for closed fracture; R94.5 Abnormal results of liver function studies; M47.9 Spondylosis, unspecified; M50.322 Other cervical disc degeneration at C5-C6 level; R07.9 Chest pain, unspecified; I10 Essential (primary) hypertension; E78.5 Hyperlipidemia, unspecified; W14.XXXA Fall from tree, initial encounter; Y92.9 Unspecified place or not applicable; Z87.891 Personal history of nicotine dependence; Z82.49 Family history of ischemic heart disease and other diseases of the circulatory system
CPT/HCPCS: 36415; 71045; 71275; 76001; 80053; 80061; 80307; 81003; 83036; 83880; 84484; 85025; 85379; 85610; 85730; 86140; 87641; 90686; 93005; 93306; A9270-GY; C1713; C1776; G0378; J0690; J1100; J1644; J1885; J2250; J2270; J2405; J2704; J3010; J3370; Q9967

== ENCOUNTER 2017-12-26 19:05 | Observation (INO) | payer OTHER ==
--- OUTSIDE RECORDS SUMMARY | 2017-12-26 19:23 | XMS REPORT ---
:1960 External Reference #:[id number] Author Organization [facility] Address [address] [place] [address] [place] [address] Phone [phone] Care Team Providers Name Role Phone Tk Ortez III, MD Primary Care Physician Unavailable Payers Type Date Identification Numbers Payment Provider Subscriber Commercial Effective: Policy Number: [id number] [employer] Varinder Shaw 2013 Medicaid PayID: [id number] [address] [address] [place] [address] Problems Date Description Provider Status Onset: 11/10/2014 Dyslipidemia Gerard Hernandes M.D. Active Family History Date Family Member(s) Problem(s) Comments General No Current Problems Mother due to resp failure- ? 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 Daily Caffeine Does Not Consume Caffeine Exercise Type/Frequency Exercises regularly active at work, walks with hunting Currently Active Patient is currently sexually active Allergies, Adverse Reactions, Alerts Date Description Reaction Status Severity Comments 09/22/2008 NKDA active Medications Medication Date Status Form Strength Qnty SIG Indications Ordering Provider Blood Pressure 11/24/ Active Misc 1unit (+) htn- for I10 Tk Loya Monitor Manual 2014 s home bp Gerardo Ortezate monitoring M.D. Oxycodone HCL 00/ Active Capsules 5mg 1 - 2 tabs Unknown 0000 by mouth every 12 hours as needed pain Amoxicillin/Clav 04/19/ Hx Tablets 875-125mg 14tab take 1 tab J01.90 Zsofia ulanate 2016 - s by mouth Omar, Potassium 05/17/ twice a day ABALONE FISHERMAN 2018 for 7 days Amlodipine 03/29/ Hx Tablets 10mg 90tab 1 by mouth I10 Tk Loya Besylate 2015 - s every day Neelima, 05/18/ M.D. 2017 Amlodipine 02/25/ Hx Tablets 5mg 30tab 1 by mouth I10 Albert Besylate 2014 - s every day NICOLE Garcia 2015 Chlorthalidone 11/24/ Hx Tablets 25mg 15tab 1/2 by mouth I10 Tk Loya 2014 - s every day Neelima, 02/25/ M.D. 2014 Metoprolol 11/10/ Hx Tablets 50mg 30tab 1 tablet by I10 Gerard Succinate ER 2015 - ER 24HR s mouth every Hernandes, 11/24/ day M.D. 2014 Neomycin/Polymyx 11/10/ Hx Solution [id number] 10ml Apply 1-2 379.90 Gerard in/Hydrocortison 2014 - -1 gts gillian Hernandes, e 11/24/ affected eye M.D. 2014 q 4hours No Active Unknown Medications 2011 - 2014 Ketoconazole 09/22/ Hx Cream 2% 60gmt 1 782.1 Stevanovi 2009 - ube application c, 01/08/ daily Radomir, 2011 M.D. Triamcinolone 09/22/ Hx Cream 0.025% 60gm 1 782.1 Stevanovi Acetonide 2008 - application c, 01/08/ twice a day Radomir, 2011 M.D. Terbinafine HCL 09/22/ Hx Tablets 250mg 84tab 1 tab po 782.1 Stevanovi 2009 - s Daily x 12 c, 01/08/ weeks Radomir, 2011 M.D. Immunizations CPT Code Status Date Vaccine Lot # [id number] Given 03/14/2017 Influenza Virus Vaccine, Quadrivalent, Split, Preservative Free [id number] Given 11/09/2016 Influenza Virus Vaccine, Quadrivalent, Split, Preservative Free [id number] Given 11/24/2014 Influenza Virus Vaccine, Quadrivalent, Split, [id number] Preservative Free [id number] Given 01/09/2012 Tdap - Tetanus/Diptheria/Acellular Pertussis [id number] Given 01/09/2012 Influenza Virus 3Yrs & Over Vital Signs Date Vital Result Comment 12/17/2017 Height 71 inches 5'11" Weight 200.00 lb Heart Rate 94 /min BP Systolic 153 mmHg BP Diastolic 95 mmHg Body Temperature 96.9 F BMI (Body Mass Index) 27.9 kg/m2 11/05/2017 Height 70 inches 5'10" Weight 199.00 lb Heart Rate 74 /min BP Systolic Sitting 140 mmHg BP Diastolic Sitting 98 mmHg Body Temperature 98.1 F O2 % BldC Oximetry 96 % BMI (Body Mass Index) 28.6 kg/m2 05/18/2017 Weight 207.00 lb Heart Rate 99 /min BP Systolic Sitting 136 mmHg BP Diastolic Sitting 78 mmHg Body Temperature 97.5 F O2 % BldC Oximetry 97 % 04/19/2016 Weight 196.12 lb Heart Rate 93 /min BP Systolic Sitting 152 mmHg BP Diastolic Sitting 90 mmHg Body Temperature 99.0 F O2 % BldC Oximetry 92 % 02/10/2016 Height 70 inches 5'10" Weight 197.00 lb Heart Rate 84 /min BP Systolic 140 mmHg BP Diastolic 82 mmHg Body Temperature 96.5 F O2 % BldC Oximetry 98 % BMI (Body Mass Index) 28.3 kg/m2 03/29/2015 Height 70 inches 5'10" Weight 199.00 lb Heart Rate 91 /min BP Systolic 138 mmHg BP Diastolic 86 mmHg Body Temperature 91.8 F O2 % BldC Oximetry 95 % BMI (Body Mass Index) 28.6 kg/m2 02/25/2015 Weight 194.50 lb Heart Rate 85 /min BP Systolic Sitting 141 mmHg BP Diastolic Sitting 93 mmHg Body Temperature 98.0 F O2 % BldC Oximetry 95 % 11/24/2014 Weight 196.75 lb Heart Rate 60 /min BP Systolic Sitting 152 mmHg BP Diastolic Sitting 96 mmHg Body Temperature 97.0 F 11/10/2014 Height 69.75 inches 5'9.75" Weight 197.00 lb Heart Rate 96 /min BP Systolic Sitting 158 mmHg BP Diastolic Sitting 102 mmHg Body Temperature 97.4 F O2 % BldC Oximetry 97 % BMI (Body Mass Index) 28.5 kg/m2 06/06/2013 Height 69.75 inches 5'9.75" Weight 197.25 lb Heart Rate 88 /min BP Systolic Sitting 138 mmHg BP Diastolic Sitting 92 mmHg Body Temperature 97.9 F BMI (Body Mass Index) 28.5 kg/m2 05/13/2013 Height 70 inches 5'10" Weight 200.25 lb Heart Rate 94 /min BP Systolic Sitting 140 mmHg BP Diastolic Sitting 88 mmHg Body Temperature 97.8 F BMI (Body Mass Index) 28.7 kg/m2 04/07/2013 Height 69.75 inches 5'9.75" Weight 203.25 lb Heart Rate 92 /min BP Systolic Sitting 148 mmHg BP Diastolic Sitting 96 mmHg BMI (Body Mass Index) 29.4 kg/m2 01/09/2012 Height 71.25 inches 5'11.25" Weight 176.00 lb Heart Rate 84 /min BP Systolic Sitting 120 mmHg BP Diastolic Sitting 88 mmHg BMI (Body Mass Index) 24.4 kg/m2 09/30/2008 Height 70 inches 5'10" Weight 175.50 lb Heart Rate 66 /min BP Systolic Sitting 124 mmHg BP Diastolic Sitting 80 mmHg BMI (Body Mass Index) 25.2 kg/m2 09/22/2008 Height 70 inches 5'10" Weight 175.00 lb Heart Rate 72 /min BP Systolic Sitting 116 mmHg BP Diastolic Sitting 78 mmHg BMI (Body Mass Index) 25.1 kg/m2 Results Test Date Test Result H/L Range Note Inr/Protime 12/15/2017 Inr 0.81 0.77-1.02 Laboratory test finding 12/15/2017 Partial Thrombo 27.3 seconds 26.0- 36.3 Time PTT CBC Auto Diff 12/15/2017 White Blood Count 9.5 10^3/uL 3.5-10.8 Red Blood Count 5.13 10^6/uL 4.00-5.40 Hemoglobin 15.8 g/dL 14.0-18.0 Hematocrit 45 % 42-52 Mean Corpuscular Volume 89 fL 80-94 Mean Corpuscular Hemoglobin 31 pg 27-31 Mean Corpuscular HGB Conc 35 g/dL 31-36 Red Cell Distribution Width 13 % 10.5-15 Platelet Count 332 10^3/uL 150-450 Mean Platelet Volume 9.3 um3 7.4-10.4 Abs Neutrophils 6.4 10^3/uL 1.5-7.7 Abs Lymphocytes 2.2 10^3/uL 1.0-4.8 Abs Monocytes 0.6 10^3/uL 0-0.8 Abs Eosinophils 0.2 10^3/uL 0-0.6 Abs Basophils 0.1 10^3/uL 0-0.2 Abs Nucleated RBC 0 10^3/uL Granulocyte % 67.6 % 38-83 Lymphocyte % 23.1 % Low 25-47 Monocyte % 6.3 % 0-7 Eosinophil % 2.3 % 0-6 Basophil % 0.7 % 0-2 Nucleated Red Blood Cells % 0.1 Comp Metabolic Panel 12/15/2017 Sodium 137 mmol/L 135-145 Chloride 104 mmol/L 101-111 Co2 Carbon Dioxide 23 mmol/L 22-32 Glucose 195 mg/dL High 70-100 Blood Urea Nitrogen 17 mg/dL 6-24 Creatinine 0.80 mg/dL 0.67-1.17 BUN/Creatinine Ratio 21.3 High 8-20 Calcium 9.3 mg/dL 8.6-10.3 Total Protein 7.4 g/dL 6.4-8.9 Albumin 4.5 g/dL 3.2-5.2 Globulin 2.9 g/dL 2-4 Albumin/Globulin Ratio 1.6 1-3 Total Bilirubin 0.60 mg/dL 0.2-1.0 Alkaline Phosphatase 84 U/L 34-104 Alt 62 U/L High 7-52 Egfr Non- 100.4 >60 Egfr 121.4 >60 1 Potassium 4.2 mmol/L 3.5-5.0 Anion Gap 10 mmol/L 2-11 Ast 80 U/L High 13-39 Laboratory test finding 12/15/2017 Lipase 48 U/L 11.0-82.0 Troponin-I (TnI) 0.00 ng/mL <0.04 Laboratory test finding 05/04/2017 Creatine Kinase(CK) 103 U/L 10-223 Thyroxine 6.34 g/mL 6.09-12.23 TSH (Thyroid Stim Horm) 2.86 mcIU/mL 0.34-5.60 Magnesium 2.1 mg/dL 1.9-2.7 Comp Metabolic Panel 05/04/2017 Sodium 135 mmol/L 133-145 Chloride 103 mmol/L 101-111 Co2 Carbon Dioxide 26 mmol/L 22-32 Glucose 109 mg/dL High 70-100 Blood Urea Nitrogen 10 mg/dL 6-24 Creatinine 0.76 mg/dL 0.67-1.17 BUN/Creatinine Ratio 13.2 8-20 Calcium 9.1 mg/dL 8.6-10.3 Total Protein 7.1 g/dL 6.4-8.9 Albumin 4.3 g/dL 3.2-5.2 Globulin 2.8 g/dL 2-4 Albumin/Globulin Ratio 1.5 1-3 Total Bilirubin 0.60 mg/dL 0.2-1.0 Alkaline Phosphatase 77 U/L 34-104 Alt 44 U/L 7-52 Egfr Non- 106.5 >60 Egfr 136.9 >60 2 Potassium 4.0 mmol/L 3.5-5.0 Anion Gap 6 mmol/L 2-11 Ast 27 U/L 13-39 CKMB 05/04/2017 CKMB ng/mL 2.6 ng/mL 0.6-6.3 Laboratory test finding 05/04/2017 Lactic Acid 0.8 mmol/L 0.5-2.0 3 B-Type Natriuretic Peptide BNP 25 pg/mL 4 Troponin-I (TnI) 0.00 ng/mL <0.04 CBC Auto Diff 05/04/2017 White Blood Count 6.8 10^3/uL 3.5-10.8 Red Blood Count 4.84 10^6/uL 4.0-5.4 Hemoglobin 14.7 g/dL 14.0-18.0 Hematocrit 43 % 42-52 Mean Corpuscular Volume 88 fL 80-94 Mean Corpuscular Hemoglobin 30 pg 27-31 Mean Corpuscular HGB Conc 35 g/dL 31-36 Red Cell Distribution Width 12 % 10.5-15 Platelet Count 248 10^3/uL 150-450 Mean Platelet Volume 8 um3 7.4-10.4 Abs Neutrophils 4.0 10^3/uL 1.5-7.7 Abs Lymphocytes 2.0 10^3/uL 1.0-4.8 Abs Monocytes 0.5 10^3/uL 0-0.8 Abs Eosinophils 0.2 10^3/uL 0-0.6 Abs Basophils 0.1 10^3/uL 0-0.2 Abs Nucleated RBC 0 10^3/uL Granulocyte % 58.7 % 38-83 Lymphocyte % 29.7 % 25-47 Monocyte % 7.6 % High 0-7 Eosinophil % 3.0 % 0-6 Basophil % 1.0 % 0-2 Nucleated Red Blood Cells % 0 Laboratory test finding 05/04/2017 Troponin-I (TnI) 0.00 ng/mL <0.04 Laboratory test finding 02/04/2016 Lyme Disease Serology Negative Negative 5 Liver Function Panel 05/19/2015 Total Protein 7.4 g/dL 6.4-8.9 Albumin 4.6 g/dL 3.2-5.2 Globulin 2.8 g/dL 2-4 Albumin/Globulin Ratio 1.6 1-3 Total Bilirubin 0.70 mg/dL 0.2-1.0 Direct Bilirubin 0.10 mg/dL 0.03-0.18 Indirect Bilirubin 0.6 mg/dL 0.3-1.0 Alkaline Phosphatase 82 U/L 34-104 Alt 42 U/L 7-52 Ast 30 U/L 13-39 Laboratory test finding 05/19/2015 Hemoglobin A1c (Glyco 5.0 % Less than 6.0 6 HGB) Comp Metabolic Panel 02/25/2015 Sodium 135 mmol/L 133-145 Potassium 3.6 mmol/L 3.5-5.0 Chloride 94 mmol/L Low 101-111 Co2 Carbon Dioxide 35 mmol/L High 22-32 Anion Gap 6 mmol/L 2-11 Glucose 111 mg/dL High 70-100 Blood Urea Nitrogen 15 mg/dL 6-24 Creatinine 0.81 mg/dL 0.67-1.17 BUN/Creatinine Ratio 18.5 8-20 Calcium 9.9 mg/dL 8.6-10.3 Total Protein 7.3 g/dL 6.4-8.9 Albumin 4.6 g/dL 3.2-5.2 Globulin 2.7 g/dL 2-4 Albumin/Globulin Ratio 1.7 1-3 Total Bilirubin 0.80 mg/dL 0.2-1.0 Alkaline Phosphatase 94 U/L 34-104 Alt 78 U/L High 7-52 Ast 46 U/L High 13-39 Egfr Non- 99.7 >60 Egfr 128.2 >60 7 Lipid Profile (Trig/Chol/HDL) 02/25/2015 Triglycerides 155 mg/dL 8 Cholesterol 233 mg/dL 9 HDL Cholesterol 48.7 mg/dL 10 LDL Cholesterol 153 mg/dL 11 Laboratory test finding 02/25/2015 TSH (Thyroid Stim Horm) 3.05 ?IU/mL 0.34-5.60 CBC Auto Diff 02/25/2015 White Blood Count 7.3 10^3/uL 3.5-10.8 Red Blood Count 5.15 10^6/uL 4.0-5.4 Hemoglobin 15.9 g/dL 14.0-18.0 Hematocrit 47 % 42-52 Mean Corpuscular Volume 92 fL 80-94 Mean Corpuscular Hemoglobin 31 pg 27-31 Mean Corpuscular HGB Conc 34 g/dL 31-36 Red Cell Distribution Width 13 % 10.5-15 Platelet Count 241 10^3/uL 150-450 Mean Platelet Volume 9 um3 7.4-10.4 Abs Neutrophils 4.5 10^3/uL 1.5-7.7 Abs Lymphocytes 2.0 10^3/uL 1.0-4.8 Abs Monocytes 0.6 10^3/uL 0-0.8 Abs Eosinophils 0.1 10^3/uL 0-0.6 Abs Basophils 0.1 10^3/uL 0-0.2 Abs Nucleated RBC 0 10^3/uL Granulocyte % 62.0 % 38-83 Lymphocyte % 26.7 % 25-47 Monocyte % 8.6 % 1-9 Eosinophil % 1.9 % 0-6 Basophil % 0.8 % 0-2 Nucleated Red Blood Cells % 0 Clotest 06/26/2013 Clotest (SEE NOTE) 12 Surgical Pathology 06/26/2013 S RUN DATE: 07/01/ <SEE 13 NOTE> CBC With Manual Diff 04/07/2013 White Blood Count 9.2 10^3/uL 4.8-10.8 Red Blood Count 4.93 10^6/uL 4.0-5.4 Hemoglobin 15.0 g/dL 14.0-18.0 Hematocrit 44 % 42-52 Mean Corpuscular Volume 89 fL 80-94 Mean Corpuscular Hemoglobin 30 pg 27-31 Mean Corpuscular HGB Conc 34 g/dL 31-36 Red Cell Distribution Width 13 % 10.5-15 Platelet Count 240 10^3/uL 150-450 Mean Platelet Volume 10 um3 7.4-10.4 Abs Neutrophils 6.0 10^3/uL 1.5-7.7 Abs Lymphocytes 2.3 10^3/uL 1.0-4.8 Abs Monocytes 0.7 10^3/uL 0-0.8 Abs Eosinophils 0.1 10^3/uL 0-0.6 Abs Basophils 0.1 10^3/uL 0-0.2 Abs Nucleated RBC 0 10^3/uL Neutrophil % 65 % 38-83 Band % 1 % 0-8 Lymphocytes % 20 % Low 25-47 Monocytes % 2 % 0-13 Eosinophils % 1 % 0-6 Reactive Lymph % 11 % High 0-6 RBC Morphology Normal Normal Laboratory test finding 04/07/2013 Hepatitis C Antibody Nonreactive Nonreactive 14 Lipid Profile 04/07/2013 Triglycerides 141 mg/dL 40-200 (Trig/Chol/HDL) Cholesterol 246 mg/dL High Less than 200 HDL Cholesterol 43 mg/dL 40-60 15 Cholesterol/HDL Ratio 5.7 Average High 1-4.44 LDL Cholesterol 174.8 High Less Than 100 16 Comp Metabolic Panel 04/07/2013 Sodium 138 mmol/L 133-145 Potassium 3.9 mmol/L 3.5-5.0 Chloride 103 mmol/L 101-111 Co2 Carbon Dioxide 26.0 mmol/L 22-32 Anion Gap 9.0 mmol/L 2-11 Glucose 90 mg/dL 70-100 Blood Urea Nitrogen 12 mg/dL 6-24 Creatinine 0.60 mg/dL 0.50-1.40 BUN/Creatinine Ratio 20.0 8-20 Calcium 9.5 mg/dL 8.1-9.9 Total Protein 7.6 g/dL 6.2-8.1 Albumin 4.5 g/dL 3.6-5.4 Globulin 3.1 g/dL 2-4 Albumin/Globulin Ratio 1.5 1-3 Total Bilirubin 1.2 mg/dL 0.4-1.5 Alkaline Phosphatase 81 U/L 30-110 Alt 56 U/L High 14-54 Ast 36 U/L 12-42 Egfr Non- 142.0 >60 Egfr 182.7 >60 17 Lipid Profile (Trig/Chol/HDL) 01/09/2012 Triglycerides 72 mg/dL 40-200 Cholesterol 214 mg/dL High Less than 200 HDL Cholesterol 39 mg/dL Low 40-60 18 Cholesterol/HDL Ratio 5.5 AVERAGE High 1-4.44 LDL Cholesterol 160.6 mg/dL High Less Than 100 19 CBC Auto Diff 01/09/2012 White Blood Count 7.9 10^3/uL 4.8-10.8 Red Blood Count 4.70 10^6/uL 4.0-5.4 Hemoglobin 15.4 g/dL 14.0-18.0 Hematocrit 44 % 42-52 Mean Corpuscular Volume 93 fL 80-94 Mean Corpuscular Hemoglobin 33 pg High 27-31 Mean Corpuscular HGB Conc 35 g/dL 31-36 Red Cell Distribution Width 12 % 10.5-15 Platelet Count 222 10^3/uL 150-450 Mean Platelet Volume 9 um3 7.4-10.4 Abs Neutrophils 5.0 10^3/uL 1.5-7.7 Abs Lymphocytes 2.3 10^3/uL 1.0-4.8 Abs Monocytes 0.6 10^3/uL 0-0.8 Abs Eosinophils 0.1 10^3/uL 0-0.6 Abs Basophils 0 10^3/uL 0-0.2 Abs Nucleated RBC 0 10^3/uL Granulocyte % 62.7 % 38-83 Lymphocyte % 28.5 % 25-47 Monocyte % 7.2 % 1-9 Eosinophil % 1.2 % 0-6 Basophil % 0.4 % 0-2 Nucleated Red Blood Cells % 0 Comp Metabolic Panel 01/09/2012 Sodium 141 mmol/L 133-145 Potassium 4.2 mmol/L 3.5-5.0 Chloride 108 mmol/L 101-111 Co2 Carbon Dioxide 28.0 mmol/L 22-32 Anion Gap 5.0 mmol/L 2-11 Glucose 99 mg/dL 70-100 Blood Urea Nitrogen 7 mg/dL 6-24 Creatinine 0.80 mg/dL 0.50-1.40 BUN/Creatinine Ratio 8.8 8-20 Calcium 9.6 mg/dL 8.1-9.9 Total Protein 6.6 GM/DL 6.2-8.1 Albumin 4.2 GM/DL 3.6-5.4 Globulin 2.4 GM/DL 2-4 Albumin/Globulin Ratio 1.8 1-3 Total Bilirubin 0.7 mg/dL 0.1-1.0 20 Alkaline Phosphatase 66 U/L 30-110 Alt 29 U/L 14-54 Ast 30 U/L 12-42 Egfr Non- 102.7 >60 Egfr 132.1 >60 21 1 Because ethnic data is not always readily available, this report includes an eGFR for both -Americans and non- Americans. The National Kidney Disease Education Program (NKDEP) does not endorse the use of the MDRD equation for patients that are not between the ages of 18 and 70, are , have extremes of body size, muscle mass, or nutritional status, or are non- or non-. According to the National Kidney Foundation, irrespective of diagnosis, the stage of the disease is based on the level of kidney function: Stage Description GFR(mL/min/1.73 m(2)) 1 Kidney damage with normal or decreased GFR 90 2 Kidney damage with mild decrease in GFR 60-89 3 Moderate decrease in GFR 30-59 4 Severe decrease in GFR 15-29 5 Kidney failure <15 (or dialysis) 2 Because ethnic data is not always readily available, this report includes an eGFR for both -Americans and non- Americans. The National Kidney Disease Education Program (NKDEP) does not endorse the use of the MDRD equation for patients that are not between the ages of 18 and 70, are , have extremes of body size, muscle mass, or nutritional status, or are non- or non-. According to the National Kidney Foundation, irrespective of diagnosis, the stage of the disease is based on the level of kidney function: Stage Description GFR(mL/min/1.73 m(2)) 1 Kidney damage with normal or decreased GFR 90 2 Kidney damage with mild decrease in GFR 60-89 3 Moderate decrease in GFR 30-59 4 Severe decrease in GFR 15-29 5 Kidney failure <15 (or dialysis) 3 [facility] Severe Sepsis and Septic Shock Management Bundle Measure requires all lactic acids initially measuring >2.0 mmol/L be repeated. 4 >100 to <200 pg/mL: likely compensated congestive heart failure (CHF) 200 to 400 pg/mL: likely moderate CHF >400 pg/mL: likely moderate to severe CHF 5 Serologic response to B. burgdorferi infection is not detected, but cannot rule out early infection during which low or undetectable antibody levels to B. burgdorferi may be present. If clinically indicated, a new serum specimen should be submitted in 7-14 days. Test Performed by: [address] [address] Charging Machine Operator: Conner Powell II, M.D., Ph.D. 6 Therapeutic target for the treatment of diabetes Mellitus patients is <7% HBA1C, and in selective patients <6.0%.Please refer to [place] [employer] Diabetic care guidelines for further information. 7 Because ethnic data is not always readily available, this report includes an eGFR for both -Americans and non- Americans. The National Kidney Disease Education Program (NKDEP) does not endorse the use of the MDRD equation for patients that are not between the ages of 18 and 70, are , have extremes of body size, muscle mass, or nutritional status, or are non- or non-. According to the National Kidney Foundation, irrespective of diagnosis, the stage of the disease is based on the level of kidney function: Stage Description GFR(mL/min/1.73 m(2)) 1 Kidney damage with normal or decreased GFR 90 2 Kidney damage with mild decrease in GFR 60-89 3 Moderate decrease in GFR 30-59 4 Severe decrease in GFR 15-29 5 Kidney failure <15 (or dialysis) 8 Desirable <150 Borderline high 150-199 High 200-499 Very High >500 9 Desirable <200 Borderline high 200-239 High >239 10 Low <40 Desirable: 40-60 High: >60 11 Desirable: <100 mg/dL Near Optimal: 100-129 mg/dL Borderline High: 130-159 mg/dL High: 160-189 mg/dL Very High: >189 mg/dL 12 RUN DATE: 06/27/13 [facility] LAB LIVE PAGE 1 RUN TIME: [address] [place] [address] Specimen Inquiry Name: VARINDER SHAW : [address]: Jeremías Santos MD Acct: [id number] Unit: [id number] AGE: 53 Location: ENDO Re06/26/13 SEX: M Status: REG REF SPEC: [id number] IVETH: 06/26/13-[address]: Jeremías Santos MD REQ: [id number] RECD: 06/26/13 STATUS: DENA DIXON DR: Tk Ortez III, MD _ SOURCE: GAS ANTRUM SPDESC: ORDERED: Clotest Procedure Result Verified Site Clotest Final 06/27/13- 24 ML Clotest Negative END OF REPORT * ML=Testing performed at Main Lab DEPARTMENT OF PATHOLOGY, [address] [place] [address] Justyn Meyer M.D. Director [facility] Permit #[id number] RUN DATE: 07/01/13 [facility] LAB LIVE PAGE 1 RUN TIME: 100[address] [place], [place] [address] Specimen Inquiry Name: VARINDER SHAW : [address]: Jeremías Santos MD Acct: [id number] Unit: [id number] AGE: 53 Location: ENDO Re06/26/13 SEX: M Status: REG REF SPEC: [id number] IVETH: 06/26/13- [facility] DR: Jeremías Santos MD REQ: [id number] RECD: 06/26/13-1157 STATUS: SMITH DIXON DR: Tk Ortez III, MD _ ORDERED: LEVEL IV/2 FINAL DIAGNOSIS 1. Gastroesophageal junction, biopsies: A. Erosive esophagitis with reactive epithelial changes; see comment. B. Squamous and columnar mucosa with no evidence of intestinal metaplasia or dysplasia. 2. Esophagus, mid at 30 cm., biopsy: A. Squamous mucosa with mild chronic inflammation. B. No evidence of eosinophilic esophagitis. COMMENT: Areas of the squamous epithelium at the GE junction demonstrate ulceration and associated exuberant reactive epithelial atypia. Deeper levels of sectioning show similar histologic features. Close clinical follow-up is advised. Dr. Meyer reviewed this case in intradepartmental consultation and agrees with the diagnosis. CLINICAL HISTORY Dysphagia for EGD CONTINUED ON NEXT PAGE * ML=Testing performed at Main Lab DEPARTMENT OF PATHOLOGY, [facility] [address] [place], [place] [address] Justyn Meyer M.D. Director [facility] Permit #[id number] RUN DATE: 07/01/13 [facility] LAB LIVE PAGE 2 RUN TIME: 1008 [facility] [address] [place], [place] [address] Specimen Inquiry Patient: VARINDER SHAW [id number] (Continued) POST-OPERATIVE DIAGNOSIS (Continued) POST-OPERATIVE DIAGNOSIS EGD UC not well seen. Body of esophagus - narrow, transverse ridges, biopsy at 30 cm. GE Junction minimal crease esophagus, Schatzki's ring, irregular tissue biopsied. Stomach normal Clotest. Pylorus and duodenum normal. ? eosinophilic esophagitis. Impression: GERD, biopsy pending, GROSS DESCRIPTION 1. The specimen is received in formalin labeled Varinder Shaw, GE Junction Biopsies and consists of a 1.2 x 0.5 x 0.3 cm. aggregate of multiple, parks, irregular to polypoid, soft tissue fragments. Submitted entirely, one cassette. 2. The specimen is received in formalin labeled Varinder Shaw, Mid Esophagus at 30 cm. and consists of three, parks-white, irregular, soft tissue fragments ranging from 0.3 x 0.2 x 0.1 cm. to 0.6 x 0.2 x 0.1 cm. Submitted entirely, one cassette. Signed (signature on file) Kathryn Miramontes MD 08/09 1008 END OF REPORT * ML=Testing performed at Main Lab DEPARTMENT OF PATHOLOGY, [address] [place] [address] Justyn Meyer M.D. Director [facility] Permit #[id number] FASTING 15 HDL Interpretation: Undesirable: High Risk: Less than 40 mg/dL Desirable: Low Risk: Greater than 60 mg/dL 16 LDL Interpretation: Low Risk Optimal Level: LDL Less than 100 mg/dL Near or Above Optimal: LDL 100-129 mg/dL Borderline High Risk: LDL 130-159 mg/dL High Risk: LDL 160-189 mg/dL Very High Risk: LDL Greater than 189 mg/dL 17 Because ethnic data is not always readily available, this report includes an eGFR for both -Americans and non- Americans. The National Kidney Disease Education Program (NKDEP) does not endorse the use of the MDRD equation for patients that are not between the ages of 18 and 70, are , have extremes of body size, muscle mass, or nutritional status, or are non- or non-. According to the National Kidney Foundation, irrespective of diagnosis, the stage of the disease is based on the level of kidney function: Stage Description GFR(mL/min/1.73 m(2)) 1 Kidney damage with normal or decreased GFR 90 2 Kidney damage with mild decrease in GFR 60-89 3 Moderate decrease in GFR 30-59 4 Severe decrease in GFR 15-29 5 Kidney failure <15 (or dialysis) 18 HDL Interpretation: Undesirable: High Risk: Less than 40 MG/DL Desirable: Low Risk: Greater than 60 MG/DL 19 LDL Interpretation: Low Risk Optimal Level: LDL Less than 100 MG/DL Near or Above Optimal: LDL 100-129 MG/DL Borderline High Risk: LDL 130-159 MG/DL High Risk: LDL 160-189 MG/DL Very High Risk: LDL Greater than 189 MG/DL 20 A metabolite of Naproxen, O-desmethylnaproxen, has been shown to interfere with the Jendrassik-Grover method for measuring total bilirubin. Samples from patients who have taken Naproxen have shown spurious elevation in total bilirubin levels. 21 Because ethnic data is not always readily available, this report includes an eGFR for both -Americans and non- Americans. The National Kidney Disease Education Program (NKDEP) does not endorse the use of the MDRD equation for patients that are not between the ages of 18 and 70, are , have extremes of body size, muscle mass, or nutritional status, or are non- or non-. According to the National Kidney Foundation, irrespective of diagnosis, the stage of the disease is based on the level of kidney function: Stage Description GFR(mL/min/1.73 m(2)) 1 Kidney damage with normal or decreased GFR 90 2 Kidney damage with mild decrease in GFR 60-89 3 Moderate decrease in GFR 30-59 4 Severe decrease in GFR 15-29 5 Kidney failure <15 (or dialysis) Procedures Date CPT Code Description Status 03/24/2015 29054 Stress Test Completed 02/25/2015 97617 EKG Tracing & Interpretation Completed 12/13/2007 74552 ECHO/Stress Completed 12/13/2007 18944 ECHO/Stress Completed 12/13/2007 10634 Stress Test Completed Encounters Type Date Location Provider CPT E/M Dx Office Visit 11/05/2017 [facility] Internal Medicine - Tk Ortez, 30037 J06.9 10:00a Tim Buitrago Office Visit 05/24/2017 [facility] [place] [address] L82.1 9:30a B35.3 B35.2 Office Visit 05/18/2017 9:00a [facility] Internal Medicine Tk Ortez, 03891 R07.9 - Tim Buitrago E78.00 R73.01 L98.9 Office Visit 04/19/2016 10:00a [facility] Internal Medicine Ericka Nelson, [facility] [address] J01.[address] - [address] R05 Office Visit 02/10/2016 3:40p [facility] Internal Medicine - Tk Ortez, 65775 I10 Tim Buitrago Z12.11 S00.06xA Office Visit 03/29/2015 3:40p [facility] Internal Medicine - Tk Ortez, 46711 I10 Hemalatha Buitrago Office Visit 02/25/2015 8:40a [facility] [place] [address] I10 Hemalatha R06.02 R53.83 D48.5 R07.9 L98.9 Office Visit 11/24/2014 11:00a [facility] Internal Medicine - Tk Ortez, 04237 I10 Hemalatha Buitrago Z23 Office Visit 11/10/2014 9:20a [facility] Internal Medicine Gerard Hernandes M.D. 08982 401.9 - [address] 272.4 379.90 278.02 921.9 Office Visit 06/06/2013 10:40a [facility] Internal Medicine Tk Ortez, 02538 569.3 - Hemalatha Buitrago Office Visit 05/13/2013 1:20p [facility] Internal Medicine Tk Ortez, 47055 V70.0 - Hemalatha Buitrago 272.0 V76.51 796.2 Office Visit 04/07/2013 1:00p [facility] Internal Medicine Tk Ortez, 96994 386.11 - Hemalatha Buitrago 796.2 272.0 V73.89 Office Visit 01/09/2012 10:20a [facility] Internal Medicine Tk Ortez, 03077 V04.81 - Hemalatha Buitrago V70.0 719.45 787.20 786.2 V76.51 V04.81 V06.1 Office Visit 09/30/2008 12:00p DO Not Use Waiter/Waitress Bar AT Heidi Estrada, 94727 782.1 Israel Buitrago 681.11 Office Visit 09/22/2008 2:00p DO Not Use Waiter/Waitress Bar AT Heidi Estrada, 14650 782.1 Israel Buitrago V70.9 681.11 705.81 Plan of Care Future Appointment(s):12/18/2017 10:30 am - Vladimir Mason MD at [facility].12/17/2017 - Jaspal Arrington M.D.S53.094A Other dislocation of right radial head, initial encounter
--- OUTSIDE RECORDS SUMMARY | 2017-12-26 19:23 | XMS REPORT ---
:1960 External Reference #:[id number] Author Organization [employer] Address [address] [place] [address] [place] [address] Phone [phone] Care Team Providers Name Role Phone Tk Ortez III, MD Primary Care Physician Unavailable Payers Type Date Identification Numbers Payment Provider Subscriber Commercial Effective: Policy Number: [id number] [employer] Varinder Shaw 2013 Medicaid PayID: [id number] [address] [address] [place] [address] Problems Date Description Provider Status Onset: 11/10/2014 Dyslipidemia Gerard Hernandes M.D. Active Family History Date Family Member(s) Problem(s) Comments General No Current Problems Mother due to resp failure- ? () - early 70s obstruction from a goiter Social History Type Date Description Comments Marital Status 2 Times Lives With Spouse Lives With Children Occupation [employer] Cigarette Use Former Cigarette Smoker quit around [...] Form Strength Qnty SIG Indications Ordering Provider Hydrocodone-Acet 12/23/ Active Tablets 5-325mg 30tab 1 or 2 tabs Vladimir aminophen 2017 s by mouth Mason, every 6-8 MD hours as needed for pain Cephalexin 12/23/ Active Capsules 500mg 20cap 1 cap by Vladimir 2017 s mouth four Mason, times a day Ibu 12/18/ Active Tablets 600mg 90tab 1 tab by S53.104A Vladimir 2017 s mouth three Mason, times a day with food Docusate Sodium 12/18/ Active Capsules 100mg 60cap 1 tab by S53.104A Vladimir 2017 s mouth twice Mason, a day Blood Pressure 11/24/ Active Misc 1unit (+) htn- for I10 Tk Loya Monitor Manual 2014 s home bp Deni Ortez monitoring M.DMaryuri Oxycodone HCL / Active Capsules 5mg 1 - 2 tabs Unknown 0000 by mouth every 12 hours as needed pain Amoxicillin/Clav 04/19/ Hx Tablets 875-125mg 14tab take 1 tab J01.90 Zsofia ulanate 2016 - s by mouth Omar, Potassium 05/17/ twice a day 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 2017 Amlodipine 02/25/ Hx Tablets 5mg 30tab 1 by mouth I10 Albert Besylate 2014 - s every day NICOLE Garcia 2015 Chlorthalidone 11/24/ Hx Tablets 25mg 15tab 1/2 by mouth I10 Tk Loya 2014 - s every day Neelima 02/25/ M.D. 2014 Metoprolol 11/10/ Hx Tablets 50mg 30tab 1 tablet by I10 Gerard Succinate ER 2014 - ER 24HR s mouth every Hernandes, 11/24/ day M.D. 2014 Neomycin/Polymyx 11/10/ Hx Solution 3.5-27220 10ml Apply 1-2 379.90 Gerard in/Hydrocortison 2014 - -1 gts gillian Hernandes, e 11/24/ affected eye M.D. 2014 q 4hours No Active 01/08/ Hx Unknown Medications 2011 - 2014 Ketoconazole 09/22/ Hx Cream 2% 60gmt 1 782.1 Teoanoradha 2008 - ube application c, 01/08/ daily Radomir, 2011 Minna Triamcinolone 09/22/ Hx Cream 0.025% 60gm 1 782.1 Stevanovi Acetonide 2009 - application c, 01/08/ twice a day Radomava 2011 Minna Terbinafine HCL 09/22/ Hx Tablets 250mg 84tab 1 tab po 782.1 Stevanovi 2009 - s Daily x 12 c, 01/08/ weeks Ivanna Gordon M.D. Immunizations CPT Code Status Date Vaccine Lot # [id number] Given 03/14/2017 Influenza Virus Vaccine, Quadrivalent, Split, Preservative Free 86399 Given 11/09/2016 Influenza Virus Vaccine, Quadrivalent, Split, Preservative Free 06237 Given 11/24/2014 Influenza Virus Vaccine, Quadrivalent, Split, x7yr2 Preservative Free 13340 Given 01/09/2012 Tdap - Tetanus/Diptheria/Acellular Pertussis [id number] 75474 Given 01/09/2012 Influenza Virus 3Yrs & Over Vital Signs Date Vital Result Comment 12/18/2017 Height 70 inches 5'10" Weight 200.00 lb Heart Rate 100 /min BP Systolic 138 mmHg BP Diastolic 86 mmHg Body Temperature 97.9 F Pain Level 8 BMI (Body Mass Index) 28.7 kg/m2 12/17/2017 Height 71 inches 5'11" Weight 200.00 [...] 0.00 ng/mL <0.04 Laboratory test finding 05/04/2017 Troponin-I (TnI) 0.00 ng/mL <0.04 CBC Auto [...] Cells % 0 Laboratory test finding 05/04/2017 Lactic Acid 0.8 mmol/L 0.5-2.0 2 B-Type Natriuretic Peptide BNP 25 pg/mL 3 Troponin-I (TnI) 0.00 ng/mL <0.04 CKMB 05/04/2017 CKMB ng/mL 2.6 ng/mL 0.6-6.3 Comp Metabolic Panel 05/04/2017 Sodium 135 mmol/L [...] Egfr Non- 106.5 >60 Egfr 136.9 >60 4 Potassium 4.0 mmol/L 3.5-5.0 Anion Gap 6 mmol/L 2-11 Ast 27 U/L 13-39 Laboratory test finding 05/04/2017 Creatine Kinase(CK) 103 U/L 10-223 Thyroxine 6.34 g/mL 6.09-12.23 TSH (Thyroid Stim Horm) 2.86 mcIU/mL 0.34-5.60 Magnesium 2.1 mg/dL 1.9-2.7 Laboratory test finding 02/04/2016 Lyme Disease Serology Negative Negative 5 Laboratory test finding 05/19/2015 Hemoglobin A1c (Glyco 5.0 % Less than 6.0 6 HGB) Liver Function Panel 05/19/2015 Total Protein 7.4 g/dL 6.4-8.9 Albumin 4.6 g/dL 3.2-5.2 Globulin 2.8 g/dL 2-4 Albumin/Globulin Ratio 1.6 1-3 Total Bilirubin 0.70 mg/dL 0.2-1.0 Direct Bilirubin 0.10 mg/dL 0.03-0.18 Indirect Bilirubin 0.6 mg/dL 0.3-1.0 Alkaline Phosphatase 82 U/L 34-104 Alt 42 U/L 7-52 Ast 30 U/L 13-39 Comp Metabolic Panel 02/25/2015 Sodium 135 mmol/L [...] Pathology 06/26/2013 S RUN DATE: 07/01/ <SEE NOTE> 13 Comp Metabolic Panel 04/07/2013 Sodium 138 mmol/L [...] Egfr Non- 142.0 >60 Egfr 182.7 >60 14 CBC With Manual Diff 04/07/2013 White Blood [...] finding 04/07/2013 Hepatitis C Antibody Nonreactive Nonreactive 15 Lipid Profile 04/07/2013 Triglycerides 141 mg/dL 40-200 (Trig/Chol/HDL) Cholesterol 246 mg/dL High Less than 200 HDL Cholesterol 43 mg/dL 40-60 16 Cholesterol/HDL Ratio 5.7 Average High 1-4.44 LDL Cholesterol 174.8 High Less Than 100 17 Lipid Profile (Trig/Chol/HDL) 01/09/2012 Triglycerides 72 [...] 5 Kidney failure <15 (or dialysis) 2 [facility] Severe Sepsis and Septic Shock Management Bundle Measure requires all lactic acids initially measuring >2.0 mmol/L be repeated. 3 >100 to <200 pg/mL: likely compensated congestive heart failure (CHF) 200 to 400 pg/mL: likely moderate CHF >400 pg/mL: likely moderate to severe CHF 4 Because ethnic data is not always readily [...] 15-29 5 Kidney failure <15 (or dialysis) 5 Serologic response to B. burgdorferi infection is not detected, but cannot rule out early infection during which low or undetectable antibody levels to B. burgdorferi may be present. If clinically indicated, a new serum specimen should be submitted in 7-14 days. Test Performed by: [place] [address] Traffic Rate Analyst: Conner Powell II, M.D., Ph.D. 6 Therapeutic target for the treatment of diabetes Mellitus patients is <7% HBA1C, and in selective patients <6.0%.Please refer to [place] Diabetes Association Diabetic care guidelines for further [...] High: >189 mg/dL 12 RUN DATE: 06/27/13 [facility] LAB LIVE PAGE 1 RUN TIME: [address] [place] [address] Specimen Inquiry Name: VARINDER SHAW : [address]: Jeremías Santos MD Acct: [id number] Unit: [id number] AGE: 53 Location: ENDO Re06/26/13 SEX: M Status: REG REF SPEC: [id number] IVETH: 06/26/13-1004 [facility] DR: Jeremías Santos MD REQ: [id number] RECD: 06/26/13 STATUS: DENA DIXON DR: Tk Ortez III, MD _ SOURCE: GAS ANTRUM SPDES: ORDERED: Clotest Procedure Result Verified Site Clotest Final 06/27/13- 0824 ML Clotest Negative END OF REPORT * ML=Testing performed at Main Lab DEPARTMENT OF PATHOLOGY, [facility] [employer] [place], [place] [address] Justyn Meyer M.D. Director [facility] Permit #[id number] RUN DATE: 07/01/13 [facility] LAB LIVE PAGE 1 RUN TIME: [address] [place] [address] Specimen Inquiry Name: VARINDER SHAW : [address]: Jeremías Santos MD Acct: [id number] Unit: [id number] AGE: 53 Location: ENDO Re06/26/13 SEX: M Status: REG REF SPEC: [id number] IVETH: 06/26/13- SUBM DR: Jeremías Santos MD REQ: [id number] RECD: 06/26/13 STATUS: SMITH DIXON DR: Tk Ortez III, [...] performed at Main Lab DEPARTMENT OF PATHOLOGY, [facility] [employer] [place] [address] Justyn Meyer M.D. Director [facility] Permit #[id number] RUN DATE: 07/01/13 [facility] LAB LIVE PAGE 2 RUN TIME: [address] [place] [address] Specimen Inquiry Patient: VARINDER SHAW [id number] (Continued) POST-OPERATIVE DIAGNOSIS (Continued) POST-OPERATIVE DIAGNOSIS EGD [...] performed at Main Lab DEPARTMENT OF PATHOLOGY, [address] [place] [address] Justyn Meyer M.D. Director [facility] Permit #[id number] 14 Because ethnic data is not always readily [...] 15-29 5 Kidney failure <15 (or dialysis) 15 FASTING 16 HDL Interpretation: Undesirable: High Risk: Less than 40 mg/dL Desirable: Low Risk: Greater than 60 mg/dL 17 LDL Interpretation: Low Risk Optimal Level: LDL Less than 100 mg/dL Near or Above Optimal: LDL 100-129 mg/dL Borderline High Risk: LDL 130-159 mg/dL High Risk: LDL 160-189 mg/dL Very High Risk: LDL Greater than 189 mg/dL 18 HDL Interpretation: Undesirable: High Risk: Less [...] Procedures Date CPT Code Description Status 03/24/2015 84231 Stress Test Completed 02/25/2015 35105 EKG Tracing & Interpretation Completed 12/13/2007 09749 ECHO/Stress Completed 12/13/2007 11417 ECHO/Stress Completed 12/13/2007 83889 Stress Test Completed Encounters Type Date Location Provider CPT E/M Dx Office Visit 11/05/2017 [facility] Internal Medicine Tk Ortez, 54759 J06.9 10:00a Tim Buitrago Office Visit 05/24/2017 [facility] [place] [address] L82.1 9:30a B35.3 B35.2 Office Visit 05/18/2017 9:00a [facility] Internal Medicine Tk Ortez 40111 R07.9 - Tim Buitrago E78.00 R73.01 L98.9 Office Visit 04/19/2016 10:00a [facility] Internal Medicine Ericka Omar, FNP [address] J01.90 - [address] R05 Office Visit 02/10/2016 3:40p [facility] Internal Medicine - Tk Ortez 93469 I10 Tim Buitrago Z12.11 S00.06xA Office Visit 03/29/2015 3:40p [facility] Internal Medicine Marianne Ortez 29612 I10 Hemalatha Buitrago Office Visit 02/25/2015 8:40a [facility] [place] [address] I10 Hemalatha R06.02 R53.83 D48.5 R07.9 L98.9 Office Visit 11/24/2014 11:00a [facility] Internal Medicine Tk Ortez [address]3299 I10 Hemalatha Buitrago Z23 Office Visit 11/10/2014 9:20a [facility] Internal Medicine Gerard Hernandes M.D. 98175 401.9 - [address] 272.4 379.90 278.02 921.9 Office Visit 06/06/2013 10:40a [facility] Internal Medicine Tk Ortez 80444 569.3 - Hemalatha Buitrago Office Visit 05/13/2013 1:20p [facility] Internal Medicine Tk Ortez, 64270 V70.0 - Hemalatha Buitrago 272.0 V76.51 796.2 Office Visit 04/07/2013 1:00p [facility] Internal Medicine Tk Ortez, 10110 386.11 - Hemalatha Buitrago 796.2 272.0 V73.89 Office Visit 01/09/2012 10:20a [facility] Internal Medicine Tk Loya Neelima, 17480 V04.81 - Hemalatha Buitrago V70.0 719.45 787.20 786.2 V76.51 V04.81 V06.1 Office Visit 09/30/2008 12:00p DO Not Use Test Preparation Tutor AT Heidi Estrada, 85413 782.1 Israel Buitrago 681.11 Office Visit 09/22/2008 2:00p DO Not Use Test Preparation Tutor AT [facility], [address] 782.1 Israel Buitrago V70.9 681.11 705.81 Plan of Care 12/18/2017 - Vladimir Mason, MDS53.104A Unsp dislocation of right ulnohumeral joint, init encntrNew Medication:Ibu 600 mgDocusate Sodium 100 mgFollow up: Follow up: 10-14 days newcatO79.121A Disp fx of head of right radius, init for clos fx
--- OUTSIDE RECORDS SUMMARY | 2017-12-26 19:23 | XMS REPORT ---
:1960 External Reference #:[id number] Author Organization [employer] Address [address] [place] [address] [place] [address] Phone [phone] Care Team Providers Name Role Phone Tk Ortez III, MD Primary Care Physician Unavailable Payers Type Date Identification Numbers Payment Provider Subscriber Commercial Effective: Policy Number: [id number] [employer] Varinder Shaw 2013 Medicaid PayID: [id number] [address] [address] [place] [address] Problems Date Description Provider Status Onset: 11/10/2014 Dyslipidemia Gerard Hernandes M.D. Active Family History Date Family Member(s) Problem(s) Comments General No Current Problems Mother due to resp failure- ? 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 2014 Neomycin/Polymyx 11/10/ Hx Solution 3.5-64002 10ml Apply 1-2 379.90 Gerard in/Hydrocortison 2014 [...] CPT Code Status Date Vaccine Lot # [id number] Given 03/14/2017 Influenza Virus Vaccine, Quadrivalent, Split, Preservative Free 59759 Given 11/09/2016 Influenza Virus Vaccine, Quadrivalent, Split, Preservative Free 62929 Given 11/24/2014 Influenza Virus Vaccine, Quadrivalent, Split, x7yr2 Preservative Free 63959 Given 01/09/2012 Tdap - Tetanus/Diptheria/Acellular Pertussis [id number] 97367 Given 01/09/2012 Influenza Virus 3Yrs & Over [...] 5 Kidney failure <15 (or dialysis) 2 [facility] Severe Sepsis and Septic Shock Management Bundle [...] submitted in 7-14 days. Test Performed by: [place] [address] Gm Video: Conner Powell II, M.D., Ph.D. 6 Therapeutic target for the treatment of diabetes Mellitus patients is <7% HBA1C, and in selective patients <6.0%.Please refer to [place] Diabetes [employer] Diabetic care guidelines for further [...] High: >189 mg/dL 12 RUN DATE: 06/27/13 [facility] LAB LIVE PAGE 1 RUN TIME: [address] [place] [address] Specimen Inquiry Name: VARINDER SHAW : [address]: Jeremías Santos MD Acct: [id number] Unit: [id number] AGE: 53 Location: ENDO Re06/26/13 SEX: M Status: REG REF SPEC: [id number] IVETH: 06/26/13-[address] [facility] [address]: Jeremías Santos MD REQ: [id number] RECD: 06/26/13 STATUS: DENA DIXON DR: Tk Ortez III, MD _ SOURCE: GAS ANTRUM SPDES: ORDERED: Clotest Procedure Result Verified Site Clotest Final 06/27/13- 0824 ML Clotest Negative END OF REPORT * ML=Testing performed at Main Lab DEPARTMENT OF PATHOLOGY, [facility] [employer] [address], [place] [address] Justyn Meyer M.D. Director [facility] Permit #[id number] RUN DATE: 07/01/13 [facility] LAB LIVE PAGE 1 RUN TIME: [address] [place] [address] Specimen Inquiry Name: VARINDER SHAW : [address]: Jeremías Santos MD Acct: [id number] Unit: [id number] AGE: 53 Location: ENDO Re06/26/13 SEX: M Status: REG REF SPEC: [id number] IVETH: 06/26/13- SUBM DR: Jeremías Santos MD REQ: [id number] RECD: 06/26/13 STATUS: SMITH DIXON DR: Tk [...] performed at Main Lab DEPARTMENT OF PATHOLOGY, [facility] [employer] [place] [address] Justyn Meyer M.D. Director [facility] Permit #[id number] RUN DATE: 07/01/13 [facility] LAB LIVE PAGE 2 RUN TIME: [address] [place] [address] Specimen Inquiry Patient: VARINDER SHAW [id number] (Continued) POST-OPERATIVE DIAGNOSIS (Continued) POST-OPERATIVE DIAGNOSIS EGD [...] performed at Main Lab DEPARTMENT OF PATHOLOGY, [address] [place] [address] Justyn Meyer M.D. Director [facility] Permit #[id number] 14 Because ethnic data is not always [...] Procedures Date CPT Code Description Status 03/24/2015 23973 Stress Test Completed 02/25/2015 07030 EKG Tracing & Interpretation Completed 12/13/2007 34565 ECHO/Stress Completed 12/13/2007 73058 ECHO/Stress Completed 12/13/2007 43033 Stress Test Completed Encounters Type Date Location Provider CPT E/M Dx Office Visit 11/05/2017 [facility] Internal Medicine Tk Ortez, 02101 J06.9 10:00a Tim Buitrago Office Visit 05/24/2017 [facility] [place] [address] L82.1 9:30a B35.3 B35.2 Office Visit 05/18/2017 9:00a [facility] Internal Medicine Tk Ortez 98054 R07.9 - Tim Buitrago E78.00 R73.01 L98.9 Office Visit 04/19/2016 10:00a [facility] Internal Medicine Ericka Omar[place] FNP [address] J01.90 - [address] R05 Office Visit 02/10/2016 3:40p [facility] Internal Medicine - Tk Ortez [address]97[address] I10 Tim Buitrago Z12.11 S00.06xA Office Visit 03/29/2015 3:40p [facility] Internal Medicine Marianne Ortez [address]95 I10 Hemalatha Buitrago Office Visit 02/25/2015 8:40a [facility] [place] [address] I10 Hemalatha R06.02 R53.83 D48.5 R07.9 L98.9 Office Visit 11/24/2014 11:00a [facility] Internal Medicine Tk Ortez 63318 I10 Hemalatha Buitrago Z23 Office Visit 11/10/2014 9:20a [facility] Internal Medicine Gerard Hernandes M.D. [address]35 401.9 - [address] 272.4 379.90 278.02 921.9 Office Visit 06/06/2013 10:40a [facility] Internal Medicine Tk Ortez 59031 569.3 - Hemalatha Buitrago Office Visit 05/13/2013 1:20p [facility] Internal Medicine Tk Ortez, 27734 V70.0 - Hemalatha Buitrago 272.0 V76.51 796.2 Office Visit 04/07/2013 1:00p [facility] Internal Medicine Tk Ortez, 66156 386.11 - Hemalatha Buitrago 796.2 272.0 V73.89 Office Visit 01/09/2012 10:20a [facility] Internal Medicine Tk Loya Neelima, 41776 V04.81 - Hemalatha Buitrago V70.0 719.45 787.20 786.2 V76.51 V04.81 V06.1 Office Visit 09/30/2008 12:00p DO Not Use Chest Painting Leader AT Heidi Estrada, 61809 782.1 Israel Buitrago 681.11 Office Visit 09/22/2008 2:00p DO Not Use Chest Painting Leader AT [facility], [address] 782.1 Israel Buitrago V70.9 681.11 705.81 Plan of Care 12/18/2017 - Vladimir Mason, MDS53.104A Unsp dislocation of right ulnohumeral joint, init encntrNew Medication:Ibu 600 mgDocusate Sodium 100 mgFollow up: Follow up: 10-14 days uguowwT27.121A Disp fx of head of right radius, init for clos fx
[2017-12-26 20:22] LABS: ABS Basophils 0.1 10^3/ul (0-0.2); ABS Eosinophils 0 10^3/ul (0-0.6); ABS Monocytes 0.5 10^3/ul (0-0.8); ABS Neutrophils 8.5 10^3/ul (1.5-7.7); ABS Nucleated RBC 0 10^3/ul; Eosinophil % 0.3 % (0-6); Hematocrit 37 % (42-52); Hemoglobin 12.8 g/dl (14.0-18.0); Lymphocyte % 9.9 % (25-47); Mean Corpuscular HGB Conc 35 g/dl (31-36); Mean Corpuscular Hemoglobin 31 pg (27-31); Mean Corpuscular Volume 89 fL (80-94); Mean Platelet Volume 7.8 um3 (7.4-10.4); Nucleated Red Blood Cells % 0; Platelet Count 320 10^3/ul (150-450); Red Blood Count 4.15 10^6/ul (4.00-5.40); Red Cell Distribution Width 13 % (10.5-15); White Blood Count 10.2 10^3/ul (3.5-10.8)
[2017-12-26 20:33] LABS: INR 0.99 (0.77-1.02)
[2017-12-26 20:46] LABS: EGFR Non-African American 123.2 (>60)
[2017-12-26] MEDS ORDERED: NS 0.9% 1000 ML* 1,000 ML IV ONE (21:59)
--- NOTE | 2017-12-26 21:59 | ED ---
GI/ HPI - HPI Summary HPI Summary: This patient is a 57 year old M presenting to [facility] with a chief complaint of blood in diarrhea (approximately 7 times) that began yesterday at 1700. The patient rates the pain 4/10 in severity. Symptoms aggravated by nothing. Symptoms alleviated by nothing. Patient reports SOB, LLQ abd pain, and nausea. Patient denies vomiting and CP. Patient states he has recently been on antibiotics and stopped taking them at 1800 yesterday. Patient states he fell out of a tree a week and a half ago resulting in multiple RUE broken bones. - History of Current Complaint Chief Complaint: EDGIBleed Time Seen by Provider: 12/26/17 21:43 Stated Complaint: BLOOD IN STOOL Hx Obtained From: Patient Onset/Duration: Started Days Ago, Still Present Timing: Constant Severity: Moderate Current Severity: Moderate Pain Intensity: 4 Location of Pain: LLQ Associated Signs and Symptoms: Positive: Nausea, Abdominal Pain, Other: - Positive SOB. Negative: Vomiting, Chest Pain Aggravating Factor(s): Nothing Alleviating Factor(s): Nothing - Additional Pertinent History Primary Care Physician: ELOINA - Allergy/Home Medications Allergies/Adverse Reactions: Allergies Allergy/AdvReac Type Severity Reaction Status Date / Time No Known Allergies Allergy Verified 12/21/17 06:17 PMH/Surg Hx/FS Hx/Imm Hx Previously Healthy: No Endocrine/Hematology History: Denies: Hx Diabetes Cardiovascular History: Reports: Hx Hypertension History: Denies: Hx Renal Disease Sensory History: Denies: Hx Contacts or Glasses, Hx Hearing Aid Opthamlomology History: Denies: Hx Contacts or Glasses Psychiatric History: Reports: Hx Anxiety - for surgery - Cancer History Hx Chemotherapy: No - Surgical History Surgery Procedure, Year, and Place: right wrist repaired with plate and screws- 2007. left wrist when 12-13 years old Hx Anesthesia Reactions: No Infectious Disease History: No Infectious Disease History: Denies: Hx of Known/Suspected MRSA, Traveled Outside the [place] in Last 30 Days - Family History Known Family History: Positive: Diabetes - Father - Social History Occupation: Employed Full-time Lives: Alone Alcohol Use: None Hx Substance Use: No Substance Use Type: Reports: None Hx Tobacco Use: No Smoking Status (MU): Never Smoked Tobacco Amount Used/How Often: 1 [id number] years Review of Systems Negative: Chest Pain Positive: Shortness Of Breath Positive: Abdominal Pain, Diarrhea, Nausea, Other - Positive blood in diarrhes. Negative: Vomiting All Other Systems Reviewed And Are Negative: Yes Physical Exam - Summary Physical Exam Summary: Appearance: Well appearing, no pain distress Skin: warm, dry, reflects adequate perfusion Head/face: normal Eyes: EOMI, GAYLE ENT: normal Neck: supple, non-tender Respiratory: CTA, breath sounds present Cardiovascular: RRR, pulses symmetrical Abdomen: tenderness in RLQ and LLQ, soft Bowel: present Musculoskeletal: cast rt arm Neuro: normal, sensory motor intact, A&Ox3 Triage Information Reviewed: Yes Vital Signs On Initial Exam: Initial Vitals Temp Pulse Resp BP Pulse Ox 98.2 F 99 20 143/90 94 12/26/17 19:13 12/26/17 19:13 12/26/17 19:13 12/26/17 19:13 12/26/17 19:13 Vital Signs Reviewed: Yes Diagnostics - Vital Signs Vital Signs Temp Pulse Resp BP Pulse Ox 12/26/17 19:13 98.2 F 99 20 143/90 94 - Laboratory Lab Results: Lab Results 12/26/17 12/26/17 12/26/17 Range/Units 20:06 20:06 20:06 WBC 10.2 (3.5-10.8) 10^3/ul RBC 4.15 (4.00-5.40) 10^6/ul Hgb 12.8 L (14.0-18.0) g/dl Hct 37 L (42-52) % MCV 89 (80-94) fL MCH 31 (27-31) pg MCHC 35 (31-36) g/dl RDW 13 (10.5-15) % Plt Count 320 (150-450) 10^3/ul MPV 7.8 (7.4-10.4) um3 Neut % (Auto) 83.9 H (38-83) % Lymph % (Auto) 9.9 L (25-47) % Dickey % (Auto) 5.2 (0-7) % Eos % (Auto) 0.3 (0-6) % Baso % (Auto) 0.7 (0-2) % Absolute Neuts (auto) 8.5 H (1.5-7.7) 10^3/ul Absolute Lymphs (auto) 1.0 (1.0-4.8) 10^3/ul Absolute Monos (auto) 0.5 (0-0.8) 10^3/ul Absolute Eos (auto) 0 (0-0.6) 10^3/ul Absolute Basos (auto) 0.1 (0-0.2) 10^3/ul Absolute Nucleated RBC 0 10^3/ul Nucleated RBC % 0 INR (Anticoag Therapy) 0.99 (0.77-1.02) APTT 28.9 (26.0-36.3) seconds Sodium 137 (135-145) mmol/L Potassium 3.6 (3.5-5.0) mmol/L Chloride 103 (101-111) mmol/L Carbon Dioxide 27 (22-32) mmol/L Anion Gap 7 (2-11) mmol/L BUN 9 (6-24) mg/dL Creatinine 0.67 (0.67-1.17) mg/dL Est GFR ( Amer) 149.0 (>60) Est GFR (Non-Af Amer) 123.2 (>60) BUN/Creatinine Ratio 13.4 (8-20) Glucose 103 H (70-100) mg/dL Lactic Acid (0.5-2.0) mmol/L Calcium 8.8 (8.6-10.3) mg/dL Total Bilirubin 1.00 (0.2-1.0) mg/dL AST 39 (13-39) U/L ALT 62 H (7-52) U/L Alkaline Phosphatase 100 (34-104) U/L Troponin I 0.00 (<0.04) ng/mL Total Protein 6.4 (6.4-8.9) g/dL Albumin 3.6 (3.2-5.2) g/dL Globulin 2.8 (2-4) g/dL Albumin/Globulin Ratio 1.3 (1-3) Lipase 20 (11.0-82.0) U/L 12/26/17 Range/Units 20:06 WBC (3.5-10.8) 10^3/ul RBC (4.00-5.40) 10^6/ul Hgb (14.0-18.0) g/dl Hct (42-52) % MCV (80-94) fL MCH (27-31) pg MCHC (31-36) g/dl RDW (10.5-15) % Plt Count (150-450) 10^3/ul MPV (7.4-10.4) um3 Neut % (Auto) (38-83) % Lymph % (Auto) (25-47) % Dickey % (Auto) (0-7) % Eos % (Auto) (0-6) % Baso % (Auto) (0-2) % Absolute Neuts (auto) (1.5-7.7) 10^3/ul Absolute Lymphs (auto) (1.0-4.8) 10^3/ul Absolute Monos (auto) (0-0.8) 10^3/ul Absolute Eos (auto) (0-0.6) 10^3/ul Absolute Basos (auto) (0-0.2) 10^3/ul Absolute Nucleated RBC 10^3/ul Nucleated RBC % INR (Anticoag Therapy) (0.77-1.02) APTT (26.0-36.3) seconds Sodium (135-145) mmol/L Potassium (3.5-5.0) mmol/L Chloride (101-111) mmol/L Carbon Dioxide (22-32) mmol/L Anion Gap (2-11) mmol/L BUN (6-24) mg/dL Creatinine (0.67-1.17) mg/dL Est GFR ( Amer) (>60) Est GFR (Non-Af Amer) (>60) BUN/Creatinine Ratio (8-20) Glucose (70-100) mg/dL Lactic Acid 0.8 (0.5-2.0) mmol/L Calcium (8.6-10.3) mg/dL Total Bilirubin (0.2-1.0) mg/dL AST (13-39) U/L ALT (7-52) U/L Alkaline Phosphatase (34-104) U/L Troponin I (<0.04) ng/mL Total Protein (6.4-8.9) g/dL Albumin (3.2-5.2) g/dL Globulin (2-4) g/dL Albumin/Globulin Ratio (1-3) Lipase (11.0-82.0) U/L Result Diagrams: 12/27/17 01:05 12/27/17 01:05 Lab Statement: Any lab studies that have been ordered have been reviewed, and results considered in the medical decision making process. - CT CT Abdomen and Pelvis CT Interpretation Completed By: Radiologist Summary of CT Findings: CT abdomen and pelvis reveals, per radiologist, 1. Findings of mina colitis. 2. Bosniak type 1 renal cysts. No follow up indicated. ED physician has reviewed this radiology report. - EKG 2138 Cardiac Rate: NL EKG Rhythm: Sinus Rhythm - [address] Segment: Normal Ectopy: None Summary of EKG Findings: An EKG taken at 2138 reveals normal sinus rhythm at 91 BPM with no acute changes. GIGU Course/Dx - Course Course Of Treatment: This patient is a 57 year old M presenting to [facility] with a chief complaint of blood in diarrhea (approximately 7 times) that began yesterday at 1700. Physical Exam Findings: Tenderness in RLQ and LLQ. CT abdomen and pelvis reveals, per radiologist, 1. Findings of mina colitis. 2. Bosniak type 1 renal cysts. No follow up indicated. Bloodwork and UA obtained. In the ED course the patient was given contrast and fluids. Consult with Dr. Graham (hospitalist) at 0025. She agrees to admit patient for further evaluation. The patient is agreeable with this plan. - Diagnoses Differential Diagnoses - Male: Diverticulitis, Colitis, Gastroenteritis ( Bacterial), Renal Colic Provider Diagnoses: Pancolitis, Abdominal pain Discharge - Sign-Out/Discharge Documenting (check all that apply): Patient Departure - Admit to [facility] [place] - Discharge Plan Condition: Stable Disposition: ADMITTED TO [facility] - Billing Disposition and Condition Condition: STABLE Disposition: Admitted to [facility] - Attestation Statements Document Initiated by Scribe: Yes Documenting Scribe: Alexa Hidalgo Provider For Whom Michelleibe is Documenting (Include Credential): Stephen Baker MD Scribe Attestation: Alexa Arboleda, scribed for Stephen Baker MD on 12/27/17 at 0201. Scribe Documentation Reviewed: Yes Provider Attestation: The documentation as recorded by the editheAlexa accurately reflects the service I personally performed and the decisions made by me, Stephen Baker MD
[2017-12-26] MEDS ORDERED: Iohexol 300* (CONTRAST) 10 ML SDV IV ONE (22:07)
--- NOTE | 2017-12-26 23:54 | RAD ---
EXAM: CT Abdomen and Pelvis With Intravenous Contrast EXAM DATE/TIME: 12/26/2017 11:16 PM CLINICAL HISTORY: 57 years old, male; Condition or disease; Other: Diverticulitis TECHNIQUE: Axial computed tomography images of the abdomen and pelvis with intravenous contrast. All CT scans at this facility use at least one of these dose optimization techniques: automated exposure control; mA and/or kV adjustment per patient size (includes targeted exams where dose is matched to clinical indication); or iterative reconstruction. Coronal and sagittal reformatted images were created and reviewed. CONTRAST: 121 ml of OMNI 300 administered intravenously. COMPARISON: C/A/P W CT CHEST/ABD/PEL W 12/15/2017 9:04 AM FINDINGS: Lower thorax: Increased atelectasis posterior basal segment right lower lobe. Minimal atelectasis posterior left lower lobe. ABDOMEN: Liver: Normal. No mass. Gallbladder and bile ducts: Normal. No calcified stones. No ductal dilation. Pancreas: Normal. No ductal dilation. Spleen: Normal. No splenomegaly. Adrenals: Normal. No mass. Kidneys and ureters: Left simple renal cysts in the upper pole measuring 1.3 cm and lower pole measuring 1.7 cm unchanged from prior study. More subtle third lesion also in the left superior pole measures 1.5 cm and is unchanged. No calculi or pelvocaliectasis. Stomach and bowel: Incompletely distended grossly normal stomach. Normal caliber small bowel. Circumferential wall thickening of the entire colon with scattered mesocolonic stranding. Additional involvement of the rectum. Appendix: Normal caliber appendix without wall thickening or adjacent inflammation. PELVIS: Bladder: Thin-walled bladder with no focal nodularity, perivesicular stranding, or calcifications. Reproductive: Normal sized prostate. Normal seminal vesicles. ABDOMEN and PELVIS: Intraperitoneal space: Normal. No free air. No significant fluid collection. Bones/joints: No fractures. No suspicious bone lesions. Soft tissues: Normal. No hernia. Vasculature: The aorta demonstrates moderate atherosclerotic calcification. Patent IVC. Lymph nodes: Normal. No enlarged lymph nodes. IMPRESSION: 1. Findings of mina colitis. 2. Bosniak type I renal cysts. No followup indicated. To contact [facility] with a general question: [facility] - [phone] For direct physician to physician contact: Physician Hotline - [phone] [facility] ([facility] Facility ID #[id number])
[2017-12-27] MEDS ORDERED: Acetaminophen TAB* 325 MG PO PRN (00:56)
[2017-12-27] MEDS ORDERED: Ondansetron INJ* 2 MG/ML VIAL IV PRN (00:56)
[2017-12-27] MEDS ORDERED: NS 0.9% 1000 ML* 1,000 ML IV SCH (01:00)
[2017-12-27 01:17] LABS: ABS Basophils 0 10^3/ul (0-0.2); ABS Eosinophils 0.1 10^3/ul (0-0.6); ABS Monocytes 0.5 10^3/ul (0-0.8); ABS Neutrophils 6.2 10^3/ul (1.5-7.7); ABS Nucleated RBC 0 10^3/ul; Eosinophil % 0.8 % (0-6); Hematocrit 34 % (42-52); Hemoglobin 11.7 g/dl (14.0-18.0); Lymphocyte % 12.6 % (25-47); Mean Corpuscular HGB Conc 35 g/dl (31-36); Mean Corpuscular Hemoglobin 31 pg (27-31); Mean Corpuscular Volume 89 fL (80-94); Mean Platelet Volume 7.7 um3 (7.4-10.4); Nucleated Red Blood Cells % 0; Platelet Count 292 10^3/ul (150-450); Red Blood Count 3.77 10^6/ul (4.00-5.40); Red Cell Distribution Width 13 % (10.5-15); White Blood Count 7.7 10^3/ul (3.5-10.8)
[2017-12-27 01:34] LABS: EGFR Non-African American 142.6 (>60)
[2017-12-27] MEDS: Vancomycin CAP* 250 MG CAP PO SCH ×5 (02:32→22:31)
--- NOTE | 2017-12-27 05:30 | HP ---
CC: Dr. Ortez; Dr. Mason * HISTORY AND PHYSICAL: DATE OF ADMISSION: 12/27/17 PRIMARY CARE PROVIDER: Dr. Ortez. ATTENDING PHYSICIAN WHILE IN THE HOSPITAL: Dr. Paula Graham * (report dictated by Jorge Luis Sy NP). CHIEF COMPLAINT: 1. Diarrhea. 2. Bloody stools. HISTORY OF PRESENT ILLNESS: Mr. Rodriguez is a 57-year-old male patient. He has a history of hypertension, hyperlipidemia. He actually was just here in the hospital and discharged 3 days ago. He was here for an ORIF of his right elbow. Preoperatively on 12/21/17, he was complaining of chest pain and surgery was actually canceled. He sustained a fall on 12/15/17 from a tree stand and 2 days later was found to have a significant elbow fracture. He came in today; he was discharged on 12/23/17. He was taking antibiotics for prophylactic prevention. He has been taking p.o. antibiotics since the elbow fracture, according to the patient since 12/19/17, I believe, he said. He unfortunately on 12/25/17 and on 12/26/17, he started noticing that he was having diarrhea. It started on 12/25/17 and was going every hour and hour almost. He described it as a watery explosive type diarrhea and he does state that he was also noticing it today, which made him very concerned. He was noticing blood in the stool. He said that he was having abdominal cramping particularly prior to having a defecation. He denied any fever, but did admit to having chills. He did admit to feeling nauseous, just feeling generalized malaise, fatigue, not feeling good. Denied any chest pain. Denied having any shortness of breath. He said he had no appetite and he was concerned because of the blood and the fact that his diarrhea just was not getting any better, so he came into the ER today. While in the ER, it was noted that on CT scan that he did have pancolitis and because of these findings, we were asked to evaluate for admission. PAST MEDICAL HISTORY: Significant for: 1. Hypertension. 2. Hyperlipidemia. PAST SURGICAL HISTORY: He had ORIF of bilateral upper extremities and then he had a right elbow ORIF done on 12/22/17. MEDICATIONS: Home meds according to his discharge 3 days ago and his meds are not changed, include: 1. Lopressor 12.5 mg p.o. b.i.d. 2. [place] 2 tablets p.o. every 4 hours as needed. ALLERGIES TO MEDICATIONS: Include no known drug allergies. FAMILY HISTORY: His mother at the age of 72, he is unsure of as to what. Father did have a history of heart disease. SOCIAL HISTORY: He is a former smoker. He does drink 6-pack of beer daily, but he has not drank actually since 12/15/17 when he fell. His surrogate decision maker is his . REVIEW OF SYSTEMS: There is no documented fever. He denied having any significant weight change. He denies having any double vision. There is no ear discharge. He denies having any rhinorrhea. There is no sore throat. No thyroid enlargement. He denies having any chest pain. There is no orthopnea. There is no nocturnal dyspnea. He did admit to having abdominal cramping. He did admit to nausea. No vomiting. Does admit to diarrhea. No dysuria, no frequency. No seizure. There is no loss of consciousness. No pruritus and no skin ulcerations. Review of 14 systems was completed, all others negative. PHYSICAL EXAMINATION GENERAL: At this time, Mr. Rodriguez is a 57-year-old male patient. He is sitting in the ED stretcher. He does not appear to be in any acute distress. Appears to be well nourished, well developed. VITAL SIGNS: Blood pressure 132/90, pulse 97, respirations 20, O2 sat 94%, temperature 98.2. HEENT: Head: Atraumatic, normocephalic. Eyes: EOMs are intact. Sclerae anicteric and not pale. Throat: Oral mucosa appears to be dry. No oropharyngeal erythema. NECK: Supple. LUNGS: Clear to auscultation bilaterally. There are no wheezes, rales, or rhonchi. HEART: Sounds S1, S2. He had a regular rate and rhythm. There are no murmurs , rubs, or gallops. ABDOMEN: Soft. It was flat. There is tenderness in the left lower quadrant. Bowel sounds hyperactive. EXTREMITIES: Pulses are 2+ throughout. 5/5 strength in the lower extremities. The right upper extremity is splinted and casted. Distal CSM checks are intact to his right upper extremity and hand. 5/5 strength in his left upper extremity. NEUROLOGIC: He is awake, alert, oriented x3. Speech clear. Tongue midline. He had no gross focal deficits. SKIN: Intact with the exception he has an incision to the right elbow, which is covered with a dressing that appears to be clean, dry, and intact. DIAGNOSTIC STUDIES/LAB DATA: Labs today: WBC 10.2, RBC of 4.15, hemoglobin 12.8, hematocrit 37, platelet count of 320. INR 0.99, PTT of 28.9. Sodium 137 , potassium 3.6, chloride 102, bicarb 27, BUN 9, creatinine 0.69, glucose 103, lactic 0.8, calcium 8.8. Total bili 1, AST 39, ALT 62, alk phos 100. Troponin 0. CRP 106. Lipase 20. He had abdominal and pelvis CT obtained today, which revealed impression: Findings of pancolitis, a renal cyst. No followup indicated. Old medical records were reviewed. ASSESSMENT AND PLAN: Mr. Rodriguez is a 57-year-old male patient coming into the ED today with complaints of diarrhea over the last 2 days in the setting of recent antibiotics. He will be admitted under observation status for: 1. Colitis. At this point, I am concerned it is probably infectious colitis. It could be Clostridium difficile. Clostridium difficile is pending. I am going to treat him empirically. We will hydrate the patient with normal saline at 125 an hour. He does not appear to be septic. His CRP is elevated. White count does not appear to be elevated, but I think we will go ahead and put him on vanco 250 q.i.d. and possibly consider ID consult in the morning. We will continue to monitor. 2. Hypertension. Continue meds as prescribed. 3. Hyperlipidemia. Follow up with PCP. 4. Status post right elbow open reduction and internal fixation. Again, he does have a followup appointment with Orthopedics and I have ordered p.r.n. pain medications along with neurovascular check. 5. DVT prophylaxis: Because of the bloody bowel movements, I am going to hold off on giving him heparin subcu. I am going to put him on SCDs. I will repeat his H and H in the morning due to the bloody diarrhea just to make sure that is stable. 6. Fluids, electrolytes, and nutrition: Clear liquid diet. 7. Code status: Full code. TIME SPENT: Time spent on admission is 60 minutes, greater than half the time spent [id number] with the patient obtaining my history and physical, other half the time spent going over the plan of care with the patient and implementing plan of care. I did discuss the plan of care with my attending, Dr. Graham; she is in agreement. JORGE LUIS SY, ANESTHESIA TECH [id number]/CPS #: [id number] MTDNy
[2017-12-27 06:48] LABS: Urine Appearance Clear; Urine Blood 1+ (Negative); Urine Color Yellow; Urine Ketones 2+ (Negative); Urine Protein Negative (Negative); Urine Red Blood Cell Trace(0-2/hpf) (Absent); Urine Specific Gravity > 1.060 (1.010-1.030); Urine Urobilinogen Negative (Negative); Urine White Blood Cell Absent (Absent)
[2017-12-27] MEDS: Metoprolol Tartrate TAB* 25 MG PO SCH ×3 (09:28→22:56)
--- NOTE | 2017-12-27 14:21 | CONS ---
CONSULTATION REPORT: DATE OF CONSULT: 12/27/17 REQUESTING PROVIDER: Sy Sy NP. CONSULTING SERVICE: Infectious Disease. REASON FOR CONSULT: C. Difficile colitis. IMPRESSION: 1. Clostridium difficile colitis, improving on vancomycin. 2. Multiple fractures after a fall from height including right elbow fracture and dislocation status post radial head replacement, lateral collateral ligament repair, and osteochondral graft, on antibiotic prophylaxis. RECOMMENDATIONS: Agree with vancomycin. As he improves, we can change the dose to 125 by mouth 4 times a day to complete a 14-day course. We discussed gradual steady improvement in his bowel symptoms over the next few days and the possibility of recurrence which we will monitor for as he finishes the antibiotic course. HISTORY OF PRESENT ILLNESS: This is a 57-year-old man who fell off a treestand on 12/15/17 and had multiple fractures, was at [facility] for treatment of his fractures and then had on 12/22/17, repair of a complex right elbow fracture with Dr. Mason. He had been on antibiotic prophylaxis since then and then developed explosive diarrhea, abdominal pain, chills and loss of appetite on 12/25/17 overnight until yesterday morning. Because of those symptoms and the persistence and severity, he came to the hospital yesterday, white blood cell count was 10, C- reactive protein 106, he was started on vancomycin and IV fluids. Yesterday he was having 8 to 10 bowel movements a day, today he has had none so far, his abdominal pain is much improved, still minimal appetite, no nausea or vomiting. He has off and on pain in the right elbow but generally much improved from the time of surgery. PAST MEDICAL HISTORY: 1. Hypertension. 2. Hyperlipidemia. 3. Right rib and clavicle fracture. 4. Right elbow fracture status post open reduction internal fixation 12/22/17 with reconstruction of the radial head and lateral collateral ligament repair and an internal joint stabilizer, reconstruction of the anteromedial facet of the coronoid with the radial head autogenous osteochondral graft. MEDICATIONS: 1. Hydrocodone and Tylenol. 2. Metoprolol. 3. Vancomycin 250 mg by mouth 4 times a day. ALLERGIES: No known drug allergies. FAMILY HISTORY: No recurrent infections. SOCIAL HISTORY: Nonsmoker. Past heavy alcohol, none currently. No travel. REVIEW OF SYSTEMS: All negative except as noted above in the history of present illness. PHYSICAL EXAM: Vital Signs: Temperature 36.7, heart rate 85, respiratory rate 14, blood pressure 135/70, oxygen saturation 96% on room air. General: He is awake, not in distress. Neurologic: He is oriented x3, follows all commands. Sensation is intact to light touch in both hands. HEENT: There is no conjunctival hemorrhage. Oropharynx: Without lesions. Neck: Supple without mass. Heart: Regular rate and rhythm without murmurs, rubs or gallops. Lungs: Clear to auscultation bilaterally. Abdomen: Soft, nontender, nondistended. There are bowel sounds present. Skin: There is no rash or splinter hemorrhage. Musculoskeletal: There is no spine tenderness to palpation. No joint synovitis. LABORATORY DATA: Creatinine 0.6, CRP 106, white blood cell count 7. Please see impression and recommendations outlined above, which I have discussed with Rama Torres NP. Thank you for asking me to see Mr. Rodriguez in consultation. [id number]/CPS #: [id number] [facility]
--- NOTE | 2017-12-27 16:42 | PN ---
Subjective Date of Service: 12/27/17 Interval History: Patient resting in recliner. Reports he is tolerating PO food and fluids without difficulty. Denies nausea, vomiting, cp, sob. Reports occasional abd pain prior to BM. Reports last BM at noon today. Reports BM was slightly more formed than previously. Also reports BM at noon was the first BM that was not bloody. 12 point ROS completed and all other negative. Family History: Unchanged from Admission Social History: Unchanged from Admission Past Medical History: Unchanged from Admission Objective Active Medications: Acetaminophen (Tylenol Tab*) 650 mg PO Q4H PRN PRN Reason: FEVER/PAIN Hydrocodone Bitart/Acetaminophen ([place] 5-325 Tab*) 2 tab PO Q4H PRN PRN Reason: PAIN Metoprolol Tartrate (Lopressor Tab*) 12.5 mg PO BID [facility] Last Admin: 12/27/17 09:28 Dose: 12.5 mg Ondansetron HCl (Zofran Inj*) 4 mg IV Q6H PRN PRN Reason: NAUSEA Vancomycin HCl (Vancomycin Cap*) 250 mg PO QID [facility] Last Admin: 12/27/17 13:03 Dose: 250 mg Vital Signs - 8 hr 12/27/17 11:37 Temperature 98.4 F Pulse Rate 83 Respiratory 16 Rate Blood Pressure 131/69 (mmHg) O2 Sat by Pulse 99 Oximetry Oxygen Devices in Use Now: None Appearance: Well appearing. Eyes: No Scleral Icterus Ears/Nose/Mouth/Throat: Clear Oropharnyx, Mucous Membranes Moist Neck: NL Appearance and Movements; NL JVP Respiratory: Symmetrical Chest Expansion and Respiratory Effort, Clear to Auscultation Cardiovascular: NL Sounds; No Murmurs; No JVD, RRR, No Edema Abdominal: - - BSx4. Diffuse mild tenderness to palpation. No tenderness Lymphatic: No Cervical Adenopathy Extremities: No Edema Skin: No Rash or Ulcers Neurological: Alert and Oriented x 3 Nutrition: Taking PO's Result Diagrams: 12/27/17 01:05 12/27/17 01:05 Additional Lab and Data: Abnormal Lab Results 12/26/17 12/26/17 12/26/17 20:06 20:06 20:06 WBC 10.2 RBC 4.15 Hgb 12.8 L Hct 37 L MCV 89 MCH 31 MCHC 35 RDW 13 Plt Count 320 MPV 7.8 Neut % (Auto) 83.9 H Lymph % (Auto) 9.9 L [place] % (Auto) 5.2 Eos % (Auto) 0.3 Baso % (Auto) 0.7 Absolute Neuts (auto) 8.5 H Absolute Lymphs (auto) 1.0 Absolute Monos (auto) 0.5 Absolute Eos (auto) 0 Absolute Basos (auto) 0.1 Absolute Nucleated RBC 0 Nucleated RBC % 0 INR (Anticoag Therapy) 0.99 APTT 28.9 Sodium 137 Potassium 3.6 Chloride 103 Carbon Dioxide 27 Anion Gap 7 BUN 9 Creatinine 0.67 Est GFR ( Amer) 149.0 Est GFR (Non-Af Amer) 123.2 BUN/Creatinine Ratio 13.4 Glucose 103 H Lactic Acid Calcium 8.8 Total Bilirubin 1.00 AST 39 ALT 62 H Alkaline Phosphatase 100 Troponin I 0.00 C-Reactive Protein Total Protein 6.4 Albumin 3.6 Globulin 2.8 Albumin/Globulin Ratio 1.3 Lipase 20 Urine Color Urine Appearance Urine pH Ur Specific Valentine Urine Protein Urine Ketones Urine Blood Urine Nitrate Urine Bilirubin Urine Urobilinogen Ur Leukocyte Esterase Urine WBC (Auto) Urine RBC (Auto) Urine Bacteria Urine Glucose 12/26/17 12/27/17 12/27/17 20:06 00:36 01:05 WBC 7.7 RBC 3.77 L Hgb 11.7 L Hct 34 L MCV 89 MCH 31 MCHC 35 RDW 13 Plt Count 292 MPV 7.7 Neut % (Auto) 80.4 Lymph % (Auto) 12.6 L [place] % (Auto) 6.0 Eos % (Auto) 0.8 Baso % (Auto) 0.2 Absolute Neuts (auto) 6.2 Absolute Lymphs (auto) 1.0 Absolute Monos (auto) 0.5 Absolute Eos (auto) 0.1 Absolute Basos (auto) 0 Absolute Nucleated RBC 0 Nucleated RBC % 0 INR (Anticoag Therapy) APTT Sodium Potassium Chloride Carbon Dioxide Anion Gap BUN Creatinine Est GFR ( Amer) Est GFR (Non-Af Amer) BUN/Creatinine Ratio Glucose Lactic Acid 0.8 Calcium Total Bilirubin AST ALT Alkaline Phosphatase Troponin I C-Reactive Protein 106.85 H Total Protein Albumin Globulin Albumin/Globulin Ratio Lipase Urine Color Urine Appearance Urine pH Ur Specific Valentine Urine Protein Urine Ketones Urine Blood Urine Nitrate Urine Bilirubin Urine Urobilinogen Ur Leukocyte Esterase Urine WBC (Auto) Urine RBC (Auto) Urine Bacteria Urine Glucose 12/27/17 12/27/17 01:05 06:30 WBC RBC Hgb Hct MCV MCH MCHC RDW Plt Count MPV Neut % (Auto) Lymph % (Auto) [place] % (Auto) Eos % (Auto) Baso % (Auto) Absolute Neuts (auto) Absolute Lymphs (auto) Absolute Monos (auto) Absolute Eos (auto) Absolute Basos (auto) Absolute Nucleated RBC Nucleated RBC % INR (Anticoag Therapy) APTT Sodium 136 Potassium 3.4 L Chloride 106 Carbon Dioxide 22 Anion Gap 8 BUN 9 Creatinine 0.59 L Est GFR ( Amer) 172.6 Est GFR (Non-Af Amer) 142.6 BUN/Creatinine Ratio 15.3 Glucose 108 H Lactic Acid Calcium 8.2 L Total Bilirubin AST ALT Alkaline Phosphatase Troponin I C-Reactive Protein Total Protein Albumin Globulin Albumin/Globulin Ratio Lipase Urine Color Yellow Urine Appearance Clear Urine pH 6.0 Ur Specific Valentine > 1.060 H Urine Protein Negative Urine Ketones 2+ A Urine Blood 1+ A Urine Nitrate Negative Urine Bilirubin Negative Urine Urobilinogen Negative Ur Leukocyte Esterase Negative Urine WBC (Auto) Absent Urine RBC (Auto) Trace(0-2/hpf) Urine Bacteria Absent Urine Glucose Negative Microbiology and Other Data: Microbiology 12/27/17 06:30 Stool Gross Appearance - Final Stool Stool Lactoferrin - Final Rotavirus Antigen - Final Negative Rotavirus 12/27/17 06:39 Cryptosporidium/Giardia - Final Stool Neg Cryptosporidium/Giardia 12/27/17 06:30 Stool Gross Appearance - Final Stool C. difficile DNA Amplification - Final 027 Presumptive POSITIVE Toxigenic C.diff POSITIVE 12/26/17 22:24 Stool Occult Blood (AGUSTINA) - Final Stool Assess/Plan/Problems-Billing Assessment: 57 yr old male with hx of htn and hld. Patient discharge from hosp 3 days ago after having ORIF of right elbow. Present to ED with abd pain and diarrhea. Diagnosed with CDiff. - Patient Problems (1) Pancolitis Comment: - Tolerating PO fluids and soft diet. - Advance diet as tolerated. (2) Clostridium difficile diarrhea Comment: - Currently on Vanco 250 mg q.i.d. - ID consulted and recommends decreasing dose to 125 mg q.i.d when he improves and have him complete a 14 day course - Reports last stool 1200 today was slightly more formed and first BM with no noted blood. (3) Hyperlipidemia Comment: - Follow up with pcp (4) HTN (hypertension) Comment: - Continue prescribed medications and monitor routinely (5) DVT prophylaxis Comment: - Subq heparin not ordered on admission due to bloody stool. - Patient has had only one BM with no noted blood. - H&H currently stable. Will reassess tomorrow. - Continue SCDs and ambulation. Status and Disposition: Continue supportive care. We appreciate IDs consult and recommendations. Attending: Davi Marrero
[2017-12-27] MEDS: HYDROcodone/ACETAMIN 5-325 MG* 1 TAB PO PRN (23:51)
[2017-12-28] MEDS: HYDROcodone/ACETAMIN 5-325 MG* 1 TAB PO PRN ×3 (05:32→22:24)
[2017-12-28 06:52] LABS: Hematocrit 32 % (42-52); Hemoglobin 10.9 g/dl (14.0-18.0); Mean Corpuscular HGB Conc 35 g/dl (31-36); Mean Corpuscular Hemoglobin 31 pg (27-31); Mean Corpuscular Volume 88 fL (80-94); Platelet Count 285 10^3/ul (150-450); Red Blood Count 3.58 10^6/ul (4.00-5.40); Red Cell Distribution Width 13 % (10.5-15); White Blood Count 5.7 10^3/ul (3.5-10.8)
[2017-12-28 07:08] LABS: EGFR Non-African American 142.6 (>60)
[2017-12-28] MEDS ORDERED: Potassium Chlor TAB* 20 MEQ TAB.ER PO STA (10:00)
[2017-12-28] MEDS: Vancomycin CAP* 250 MG CAP PO SCH ×4 (10:59→20:24)
[2017-12-28] MEDS: Metoprolol Tartrate TAB* 25 MG PO SCH ×2 (13:27→20:24)
--- NOTE | 2017-12-28 18:25 | PN ---
Subjective Date of Service: 12/28/17 Interval History: Pt seen and examined. Meds and labs reviewed. CC: Diarrhea x2 in AM, no signs of blood in stool; 4 BM yesterday ROS: Denied GIBSON/dizziness, F/C, N/V, CP, SOB, increased cough, sputum production , abd pain, constipation, dysuria, myalgias, arthralgias, throat pain, and new skin lesions. The rest of the 14 point ROS are unremarkable. PHYSICAL EXAM: GEN APPEARANCE: Awake, not in acute distress HEENT: NC/AT, PERRLA, moist oral mucosa, (-) throat erythema NECK: Soft, supple, (-) cervical LAD, (-)JVD HEART: S1S2 WNL, RRR, No MRG CHEST: CTA, BL, GAE, No W/R/R ABD: Soft, ND/NT, NABS 4x Q EXT: No C/C/E SKIN: Warm to touch PSYCH: No active psychosis, hallucinations, depression, SI/HI Family History: Unchanged from Admission Social History: Unchanged from Admission Past Medical History: Unchanged from Admission Objective Active Medications: Acetaminophen (Tylenol Tab*) 650 mg PO Q4H PRN PRN Reason: FEVER/PAIN Hydrocodone Bitart/Acetaminophen ([place] 5-325 Tab*) 2 tab PO Q4H PRN PRN Reason: PAIN Last Admin: 12/28/17 17:34 Dose: 2 tab Metoprolol Tartrate (Lopressor Tab*) 12.5 mg PO BID [facility] Last Admin: 12/28/17 13:27 Dose: Not Given Ondansetron HCl (Zofran Inj*) 4 mg IV Q6H PRN PRN Reason: NAUSEA Vancomycin HCl (Vancomycin Cap*) 250 mg PO QID [facility] Last Admin: 12/28/17 17:29 Dose: 250 mg Vital Signs - 8 hr 12/28/17 12/28/17 12/28/17 11:54 13:27 16:40 Temperature 98.3 F 98.2 F Pulse Rate 78 90 Respiratory 16 18 18 Rate Blood Pressure 111/62 134/76 (mmHg) O2 Sat by Pulse 97 Oximetry 12/28/17 17:34 Temperature Pulse Rate Respiratory 20 Rate Blood Pressure (mmHg) O2 Sat by Pulse Oximetry Oxygen Devices in Use Now: None Result Diagrams: 12/28/17 06:37 12/28/17 06:37 Additional Lab and Data: Abnormal Lab Results 12/26/17 12/26/17 12/26/17 20:06 20:06 20:06 WBC 10.2 RBC 4.15 Hgb 12.8 L Hct 37 L MCV 89 MCH 31 MCHC 35 RDW 13 Plt Count 320 MPV 7.8 Neut % (Auto) 83.9 H Lymph % (Auto) 9.9 L [place] % (Auto) 5.2 Eos % (Auto) 0.3 Baso % (Auto) 0.7 Absolute Neuts (auto) 8.5 H Absolute Lymphs (auto) 1.0 Absolute Monos (auto) 0.5 Absolute Eos (auto) 0 Absolute Basos (auto) 0.1 Absolute Nucleated RBC 0 Nucleated RBC % 0 INR (Anticoag Therapy) 0.99 APTT 28.9 Sodium 137 Potassium 3.6 Chloride 103 Carbon Dioxide 27 Anion Gap 7 BUN 9 Creatinine 0.67 Est GFR ( Amer) 149.0 Est GFR (Non-Af Amer) 123.2 BUN/Creatinine Ratio 13.4 Glucose 103 H Lactic Acid Calcium 8.8 Total Bilirubin 1.00 AST 39 ALT 62 H Alkaline Phosphatase 100 Troponin I 0.00 C-Reactive Protein Total Protein 6.4 Albumin 3.6 Globulin 2.8 Albumin/Globulin Ratio 1.3 Lipase 20 Urine Color Urine Appearance Urine pH Ur Specific Archer Urine Protein Urine Ketones Urine Blood Urine Nitrate Urine Bilirubin Urine Urobilinogen Ur Leukocyte Esterase Urine WBC (Auto) Urine RBC (Auto) Urine Bacteria Urine Glucose 12/26/17 12/27/17 12/27/17 20:06 00:36 01:05 WBC 7.7 RBC 3.77 L Hgb 11.7 L Hct 34 L MCV 89 MCH 31 MCHC 35 RDW 13 Plt Count 292 MPV 7.7 Neut % (Auto) 80.4 Lymph % (Auto) 12.6 L [place] % (Auto) 6.0 Eos % (Auto) 0.8 Baso % (Auto) 0.2 Absolute Neuts (auto) 6.2 Absolute Lymphs (auto) 1.0 Absolute Monos (auto) 0.5 Absolute Eos (auto) 0.1 Absolute Basos (auto) 0 Absolute Nucleated RBC 0 Nucleated RBC % 0 INR (Anticoag Therapy) APTT Sodium Potassium Chloride Carbon Dioxide Anion Gap BUN Creatinine Est GFR ( Amer) Est GFR (Non-Af Amer) BUN/Creatinine Ratio Glucose Lactic Acid 0.8 Calcium Total Bilirubin AST ALT Alkaline Phosphatase Troponin I C-Reactive Protein 106.85 H Total Protein Albumin Globulin Albumin/Globulin Ratio Lipase Urine Color Urine Appearance Urine pH Ur Specific Archer Urine Protein Urine Ketones Urine Blood Urine Nitrate Urine Bilirubin Urine Urobilinogen Ur Leukocyte Esterase Urine WBC (Auto) Urine RBC (Auto) Urine Bacteria Urine Glucose 12/27/17 12/27/17 01:05 06:30 WBC RBC Hgb Hct MCV MCH MCHC RDW Plt Count MPV Neut % (Auto) Lymph % (Auto) [place] % (Auto) Eos % (Auto) Baso % (Auto) Absolute Neuts (auto) Absolute Lymphs (auto) Absolute Monos (auto) Absolute Eos (auto) Absolute Basos (auto) Absolute Nucleated RBC Nucleated RBC % INR (Anticoag Therapy) APTT Sodium 136 Potassium 3.4 L Chloride 106 Carbon Dioxide 22 Anion Gap 8 BUN 9 Creatinine 0.59 L Est GFR ( Amer) 172.6 Est GFR (Non-Af Amer) 142.6 BUN/Creatinine Ratio 15.3 Glucose 108 H Lactic Acid Calcium 8.2 L Total Bilirubin AST ALT Alkaline Phosphatase Troponin I C-Reactive Protein Total Protein Albumin Globulin Albumin/Globulin Ratio Lipase Urine Color Yellow Urine Appearance Clear Urine pH 6.0 Ur Specific Archer > 1.060 H Urine Protein Negative Urine Ketones 2+ A Urine Blood 1+ A Urine Nitrate Negative Urine Bilirubin Negative Urine Urobilinogen Negative Ur Leukocyte Esterase Negative Urine WBC (Auto) Absent Urine RBC (Auto) Trace(0-2/hpf) Urine Bacteria Absent Urine Glucose Negative Microbiology and Other Data: Microbiology 12/27/17 06:30 Stool Gross Appearance - Final Stool Stool Lactoferrin - Final Rotavirus Antigen - Final Negative Rotavirus 12/27/17 06:39 Cryptosporidium/Giardia - Final Stool Neg Cryptosporidium/Giardia 12/27/17 06:30 Stool Gross Appearance - Final Stool C. difficile DNA Amplification - Final 027 Presumptive POSITIVE Toxigenic C.diff POSITIVE 12/26/17 22:24 Stool Occult Blood (AGUSTINA) - Final Stool Assess/Plan/Problems-Billing Assessment: 57 yr old male with hx of htn and hld. Patient discharge from hosp 3 days ago after having ORIF of right elbow. Present to ED with abd pain and diarrhea. Diagnosed with CDiff. - Patient Problems (1) Pancolitis Current Visit: Yes Status: Acute Code(s): K51.00 - ULCERATIVE (CHRONIC) PANCOLITIS WITHOUT COMPLICATIONS SNOMED Code(s): 048958432 Comment: - Tolerating PO fluids and soft diet. - Will further advance diet to low residue (2) Clostridium difficile diarrhea Current Visit: Yes Status: Acute Code(s): A04.72 - ENTEROCOLITIS D/T CLOSTRIDIUM DIFFICILE, NOT SPCF RECUR SNOMED Code(s): 6738614425518 Comment: - Currently on Vanco 125 mg q.i.d. to complete 2 weeks course (3) HTN (hypertension) Current Visit: No Status: Acute Code(s): I10 - ESSENTIAL (PRIMARY) HYPERTENSION SNOMED Code(s): 37944402 Comment: - Continue prescribed medications and monitor routinely (4) DVT prophylaxis Current Visit: No Status: Acute Code(s): IPN0743 - SNOMED Code(s): 487611329 Comment: - Subq heparin not ordered on admission due to bloody stool. - Patient has had only one BM with no noted blood. - Continue SCDs and ambulation. Status and Disposition: -Possible D/C in AM if diarrhea continues to improve along with clinical picture
[2017-12-29] MEDS: HYDROcodone/ACETAMIN 5-325 MG* 1 TAB PO PRN (05:51)
[2017-12-29 06:46] LABS: ABS Basophils 0 10^3/ul (0-0.2); ABS Eosinophils 0.2 10^3/ul (0-0.6); ABS Monocytes 0.6 10^3/ul (0-0.8); ABS Nucleated RBC 0 10^3/ul; Eosinophil % 3.9 % (0-6); Hematocrit 34 % (42-52); Hemoglobin 11.8 g/dl (14.0-18.0); Lymphocyte % 17.1 % (25-47); Mean Corpuscular HGB Conc 35 g/dl (31-36); Mean Corpuscular Hemoglobin 31 pg (27-31); Mean Corpuscular Volume 89 fL (80-94); Nucleated Red Blood Cells % 0.1; Platelet Count 320 10^3/ul (150-450); Red Blood Count 3.79 10^6/ul (4.00-5.40); Red Cell Distribution Width 13 % (10.5-15); White Blood Count 5.9 10^3/ul (3.5-10.8)
[2017-12-29 07:05] LABS: EGFR Non-African American 121.1 (>60)
[2017-12-29] MEDS: Metoprolol Tartrate TAB* 25 MG PO SCH (07:43)
[2017-12-29] MEDS: Vancomycin CAP* 250 MG CAP PO SCH (08:09)
[2017-12-29] MEDS ORDERED: Magnesium Sulfate 2 GM IV* 2 GM/50 ML BAG IVPB ONE (08:32)
[2017-12-29 09:07] VITALS: BP 129/80
--- NOTE | 2017-12-29 14:59 | DS ---
CC: Dr. Graham; Stephen Baker MD; Tk Ortez MD; Dr. Mccollum DISCHARGE SUMMARY: DATE OF ADMISSION: 12/27/17 DATE OF DISCHARGE: 12/29/17 DISCHARGE DIAGNOSES: 1. Pancolitis secondary to C. Diff. 2. Diarrhea secondary to C. Diff. 3. History of hypertension, well controlled. HISTORY OF PRESENT ILLNESS/HOSPITAL COURSE: The patient is a 57-year-old gentleman with history of hypertension and hyperlipidemia, who recently fell off a tree stand on 12/15/17 and had multiple fractures that he sustained on his right elbow and wrist and currently seeing Dr. Mason in followup as an outpatient. He mentions that he has been prescribed antibiotic prophylaxis since it has been repaired on 12/22/17 and then subsequently developed explosive diarrhea, abdominal pain and chills as well as loss of appetite on . Two days later, he presented to the ED with the above complaint and was subsequently diagnosed with C. Diff colitis and hence, the patient was placed on oral regimen of vancomycin and his bright red blood per rectum has improved and currently passing soft stools that are brown with no bright red blood per rectum. He mentions that the color of his stools has normalized and the fact that his stools are no longer as soft or as liquid as they initially were. The patient feels well and would like to go home. His magnesium was also replaced prior to his discharge. The patient was advised to follow up and/or call his PCP within 3 days post discharge. He was advised that if his symptoms resume or develop new ones or feel unwell for any reason, to call his PCP first and if his PCP cannot entertain him due to scheduling issues alone, to call [facility] if his issue is considered nonemergent. He was advised to call my office regarding any questions, concerns, or further clarifications regarding his discharge plans and/or prescriptions and to take his medications as prescribed. He also claims that he has run out of his Rea prescription and this has been refilled for him. He was given 8 tablets with 0 refills and I will defer with his orthopedic surgeon and/or his PCP for any subsequent refills. DISCHARGE MEDICATIONS: 1. Tylenol 650 mg p.o. q.4 p.r.n. 2. Rea 5/325 mg 1 tab p.o. q.6 p.r.n., 8 tablets dispensed with 0 refills. 3. Vancomycin 125 mg p.o. 4 times daily for 12 more days to complete a 14-day treatment therapy; given his insurance has refused to provide coverage for PO Vancomycin and a reduced elena offered by our pharmacist is still deemed to be expensive by patient, Vanco was changed to Flagyl 500 mg PO TID x 12 days instead 4. Metoprolol tartrate 12.5 mg p.o. b.i.d. REVIEW OF SYSTEMS: The patient currently denies any recent headaches, dizziness , fevers, chills, nausea, vomiting, chest pain, shortness of breath, abdominal pain. He mentions that his diarrhea has significantly improved, although his stools are sill soft. He had a one-time bowel movement in the morning prior to his discharge with no bright red blood per rectum. Denies any myalgias, arthralgias, throat pain, or new skin lesions. The rest of the 14-point review of systems is otherwise unremarkable. PHYSICAL EXAMINATION: Shows the most recent vital signs of records with blood pressure of 129/80, 98.2 degrees Fahrenheit, 80 beats per minute heart rate, 16 per minute respiratory rate, saturating at 97% on room air. General Appearance : The patient is awake, alert, and oriented x3, not in acute distress. HEENT: Normocephalic, atraumatic. PERRLA. Extraocular muscles intact. Negative for icterus. Moist oral mucosa. Negative throat erythema. Neck is soft, supple with no cervical lymphadenopathy, no JVD. Heart: S1, S2 within normal limits. Regular rate and rhythm. No murmurs, rubs, or gallops. Chest: Clear to auscultation bilaterally. Good air entry. No wheezes, rales, or rhonchi. Abdomen is soft, nondistended, nontender. Normoactive bowel sounds x4 quadrants. Extremities: No cyanosis, clubbing, or edema. Psychiatric: No active psychosis, depression, suicidal or homicidal ideation. Skin is warm to touch. TIME SPENT: The total time spent evaluating the patient, reviewing pertinent data, and appropriate documentation is 40 minutes. [id number]/[facility] #: [id number] [facility]
== END 2017-12-29 13:47 | disposition home or self-care (01) ==
LOC: ED 19:05 → MEDTELE 12-27 00:54
PROVIDERS: ADMIT Internal Medicine; ATTEND Student in an Organized Health Care Education/Training Program
DX: A04.72 Enterocolitis due to Clostridium difficile, not specified as recurrent (principal); K51.00 Ulcerative (chronic) pancolitis without complications; I10 Essential (primary) hypertension; E78.5 Hyperlipidemia, unspecified; Z87.81 Personal history of (healed) traumatic fracture
CPT/HCPCS: 36415; 74177; 80048; 80053; 81003; 81015; 82272; 83605; 83630; 83690; 83735; 84100; 84484; 85025; 85027; 85610; 85730; 86140; 87045; 87046; 87177; 87209; 87328; 87329; 87425; 87493; 87899; 96361; 96374; 99283; A9270-GY; G0378; J3475; Q9967

== ENCOUNTER 2018-03-11 05:54 | Day surgery (SDC) | payer OTHER ==
[~2018-03-11 05:54] MED LIST changes: -Buffered Lidocaine 0.9% SYRIN* 5 ML/SYR SYRINGE INTRADERM ONE; +Buffered Lidocaine 1% SYRIN* 1 ML/SYRINGE INTRADERM ONE; -Levalbuterol 0.63MG/3ML NEB* UNIT OF USE INH PRN
[2018-03-11] MEDS ORDERED: Lactated Ringers 1000 ML Bag* 1,000 ML IV SCH (06:00)
[2018-03-11] MEDS ORDERED: Famotidine IV* 10 MG/ML 2 ML (20 mg) IV ONE (06:00)
[2018-03-11] MEDS ORDERED: Dexamethasone IV* 4 MG/ML 1 ML (4 MG) IV SLOW PU ONE (06:00)
[2018-03-11] MEDS ORDERED: Dexamethasone IV* 4 MG/ML 1 ML (4 MG) ONE (06:22)
[2018-03-11] MEDS ORDERED: ceFAZolin 2 GM PREMIX in ORs 2 GM/50 ML BAG IVPB ONE (06:22)
[2018-03-11] MEDS ORDERED: Famotidine IV* 10 MG/ML 2 ML (20 mg) ONE (06:22)
[2018-03-11] MEDS ORDERED: Buffered Lidocaine 1% SYRIN* 1 ML/SYRINGE ONE (06:22)
[2018-03-11] MEDS ORDERED: Bupivacaine 0.25% W/EPI* 10 ML SDV ONE (06:51)
[2018-03-11] MEDS ORDERED: Bupivacaine 0.25% SDV PF* 10 ML VIAL INJ ONE (06:51)
[2018-03-11] MEDS ORDERED: Propofol* 10 MG/ML 20 ML BTL ONE (07:10)
[2018-03-11] MEDS ORDERED: Midazolam* 1 MG/ML 5 ML VIAL (5 MG) ONE (07:10)
[2018-03-11] MEDS ORDERED: fentaNYL* 50 MCG/ML 2 ML VIAL (100 MCG VIAL) ONE ×3 (07:10→10:49)
[2018-03-11] MEDS ORDERED: Lidocaine 2% PF * 5 ML VIAL ONE (07:10)
[2018-03-11] MEDS ORDERED: EPHEDrine (Pressors)* 50 MG/ML VIAL ONE (07:57)
[2018-03-11] MEDS ORDERED: Ketorolac INJ* 30 MG/ML 1 ML VIAL ONE (08:02)
[2018-03-11] MEDS ORDERED: Naloxone* 0.4 MG/ML 1 ML VIAL IV PRN (08:44)
[2018-03-11] MEDS ORDERED: DiMENhydriNATE IV* 50 MG/ML VIAL IV PUSH PRN (08:44)
[2018-03-11] MEDS ORDERED: fentaNYL* 50 MCG/ML 2 ML VIAL (100 MCG VIAL) IV PRN (08:44)
[2018-03-11] MEDS ORDERED: HYDROcodone/ACETAMIN 5-325 MG* 1 TAB PO PRN (08:44)
[2018-03-11] MEDS ORDERED: Metoprolol Tartrate IV* 1 MG/ML 5 ML VIAL ONE (09:08)
[2018-03-11] MEDS ORDERED: oxyCODONE/Acetamin 5/325 MG* TAB ONE ×2 (10:36→11:55)
[2018-03-11] MEDS: oxyCODONE/Acetamin 5/325 MG* TAB PO PRN ×2 (10:38→11:56)
[2018-03-11 11:57] VITALS: BP 116/80
--- NOTE | 2018-03-12 02:42 | OP ---
DATE OF OPERATION: 03/11/18 - [facility] DATE OF : 64 SURGEON: Vladimir Mason MD BILLBOARD ERECTOR HELPER: None. ANESTHESIOLOGIST: Dr. Odonnell. ANESTHESIA: General. PRE-OP DIAGNOSES: 1. Severe right ulnar nerve symptoms after prior open treatment of complex fracture dislocation about 3 months ago. 2. Right elbow retained skeletal dynamic internal joint stabilizer. POST-OP DIAGNOSES: 1. Severe right ulnar nerve symptoms after prior open treatment of complex fracture dislocation about 3 months ago. 2. Right elbow retained skeletal dynamic internal joint stabilizer. OPERATIVE PROCEDURE: 1. Right elbow ulnar nerve neurolysis with anterior transposition and nerve wrapping. Please note that this was in the area of prior surgery where I had reconstructed the coronoid with a radial head autograft. There was quite a bit more scar tissue and this was much more difficult than the typical neuroplasty of the ulnar nerve at the elbow with transposition. 2. Removal of internal joint stabilizer, right elbow. INDICATIONS: Vargas had the very complex elbow fracture dislocation and underwent surgery back on 12/22/17. It is time to remove the deep internal joint stabilizer. Additionally, he is having severe ulnar nerve symptoms with quite a bit of intense numbness in the small finger of the right hand and weakness in the hand. I talked about risks and benefits of surgery. I told him that I would recommend addressing the ulnar nerve at the time of this surgery, he agrees and wants to do that as well. He understands the risks of surgery. ESTIMATED BLOOD LOSS: 10 mL. COMPLICATIONS: None. FINDINGS: See above and below. The elbow was stable after removal of the internal joint stabilizer through what arc of motion he currently has. DESCRIPTION OF PROCEDURE: Olvin was seen in the preoperative holding area. The correct site, side, and procedure were identified. We came back to the operating room and the arm was prepped and draped in the usual fashion and a time-out was performed. The arm was exsanguinated with the Esmarch and the tourniquet inflated to 250 mmHg. I first reopened his lateral incision just enough to remove the supracondylar pin for the dynamic joint stabilizer. The fascia deep had been opened over the pin and this was removed uneventfully. I then made a 4 to 5 cm incision over the tip of the olecranon where the plate was. Dissection was carried down and the soft tissue was released over the plate. I then first removed the compression screw followed by the 2 locking screws. The plate was then removed uneventfully. I released the plate from the arm of the internal joint stabilizer and all necessary pieces. I was then able to remove the entirety of the internal joint stabilizer relatively easily. I then took the arm through range of motion. It was very stable. I, therefore, irrigated out the wounds and both wounds were closed with one or two 3-0 Vicryl deep and then a 3-0 Monocryl to close the skin. After the IJS was removed, I reopened his prior posteromedial incision extending it just a bit proximally and distally. Dissection was carried down. I went ahead and found the nerve proximally in less scar tissue. I placed in a pin to seal the retractor proximally and release the nerve all the way past the arcade of Davis. I then came distally and very carefully dissected out the nerve. As I got past the medial epicondyle, there was very dense scar tissue. The medial antebrachial cutaneous nerve was identified and protected throughout the case. I went ahead and released the scar tissue and Polo's ligament. Ultimately, there was a very tight band of scar tissue that was frankly kinking , compressing the nerve over a very small area just distal to the medial epicondyle. Once I released this, the nerve began to recover its shape but it was very obvious where the nerve had been compressed. The nerve was completely intact. The superficial FCU fascia was released. The two edges of the FCU were released. I went ahead and excised a portion of the humeral head of the FCU in anticipation of the transposition. I had placed a vessel loop around the nerve to provide gentle retraction while I performed the neurolysis. Ultimately, this took much longer than typical, but we were able to get a very nice neurolysis preserving the main motor nerve branches. After I had the neurolysis performed, I was able to raise full-thickness flap off the flexor pronator fascia. I then raised step cut type fascial flaps off the fascia. There was the scar tissue where I had previously done the over the top approach, was all excised. The muscular septi were excised. I then transposed the nerve on to this muscular bed. The two fascial flaps were then sewn end to end to provide very loose apposition over the nerve and to keep the nerve in the transpose position. After this was done, there was no kinking of the nerve. Again, a portion of the FCU muscle had been excised just to prevent any kinking of the nerve as it coursed around the FCU muscle. I had excised the medial intermuscular septum as well. I obtained hemostasis with the Bovie and bipolar cautery throughout the procedure and then again checked for hemostasis at the end of the procedure. Lastly, I wrapped the nerve with an axoguard nerve wrap through the compressed portion. The wrap was secured with 6-0 prolene and was not sewn to the nerve. Once everything was looking good, I irrigated out the wound. The subcutaneous tissue was reapproximated with 3-0 Vicryl suture taking care not to sew in the medial antebrachial cutaneous nerve. Skin was then closed with 3-0 Monocryl and Steri- Strips were applied over all of the incisions. Marcaine was infiltrated all around the operative area. The wounds were dressed and the patient was placed in a long- arm splint in gentle flexion. Tourniquet was deflated and the hand pinked up immediately. He was taken to the recovery room in stable condition. [id number]/[facility] #: [id number] YAMEL
== END 2018-03-11 12:11 | disposition home or self-care (01) ==
LOC: OR 05:54
PROVIDERS: ATTEND Orthopaedic Surgery Hand Surgery
DX: G56.21 Lesion of ulnar nerve, right upper limb (principal); Z47.2 Encounter for removal of internal fixation device; S53.104D Unspecified dislocation of right ulnohumeral joint, subsequent encounter; S52.121D Displaced fracture of head of right radius, subsequent encounter for closed fracture with routine healing; L90.5 Scar conditions and fibrosis of skin; T14.8XXS Other injury of unspecified body region, sequela; I10 Essential (primary) hypertension; E78.5 Hyperlipidemia, unspecified; Z87.891 Personal history of nicotine dependence; X58.XXXD Exposure to other specified factors, subsequent encounter; Y92.9 Unspecified place or not applicable
CPT/HCPCS: 88300; A9270-GY; C1763; J0690; J1100; J1885; J2250; J2704; J3010; J3490

== ENCOUNTER 2018-06-24 21:40 | Emergency (ER) | payer OTHER ==
[2018-06-24 23:11] LABS: ABS Basophils 0 10^3/ul (0-0.2); ABS Eosinophils 0.2 10^3/ul (0-0.6); ABS Lymphocytes 2.1 10^3/ul (1.0-4.8); ABS Monocytes 0.5 10^3/ul (0-0.8); ABS Neutrophils 4.4 10^3/ul (1.5-7.7); ABS Nucleated RBC 0 10^3/ul; Eosinophil % 2.5 %; Hematocrit 43 % (36-46); Hemoglobin 15.1 g/dL (14.0-18.0); Lymphocyte % 29.1 %; Mean Corpuscular HGB Conc 35 g/dL (31-36); Mean Corpuscular Hemoglobin 31 pg (27-31); Mean Corpuscular Volume 87 fL (80-94); Mean Platelet Volume 8.4 fL (7.4-10.4); Nucleated Red Blood Cells % 0.1; Platelet Count 266 10^3/uL (150-450); Red Blood Count 4.94 10^6 /uL (4.18-5.48); Red Cell Distribution Width 13 % (10.5-15); White Blood Count 7.2 10^3/uL (3.5-10.8)
[2018-06-24] MEDS ORDERED: metroNIDAZOLE TAB* 250 MG PO ONE (23:20)
[2018-06-24 23:23] LABS: Activated Partial Thrombo Time 32.1 seconds (26.0-36.3); INR 0.94 (0.82-1.09)
--- NOTE | 2018-06-24 23:25 | ED ---
Complex/Multi-Sys Presentation - HPI Summary HPI Summary: The patient is a 58 year old male who is presenting to the [facility] with a chief complaint of diarrhea. The patient reports of bloody watery stool since 2 days ago. He describes these symptoms as similar to occurrences of diarrhea that happened after he had received antibiotics for his surgery on his right elbow back in the Fall (November 2017). The patient states that abd pain is present currently but not as significant as the previous occurrence of these symptoms. Prior to diarrhea, the patient had cold like symptoms such as coughing and nasal congestion for the past 3 to 4 days which have improved but are still present. He denies fevers, N/V and chills. He states that the episodes of diarrhea have been more reoccurring since they first began and currently episodes occur after every 2-3 hours. Medication was reported and noted. Symptoms are aggravated by nothing. Symptoms are alleviated by nothing. The pain is rated to be 4/10 in severity. - History Of Current Complaint Chief Complaint: EDGIBleed Time Seen by Provider: 06/24/18 23:10 Hx Obtained From: Patient Timing: Constant Aggravating Factor(s): Nothing Alleviating Factor(s): Nothing Associated Signs And Symptoms: Positive: Other - Nasal congestion, Cough, and lower abd pain. Negative Chills. Negative: Nausea, Vomiting, Fever - Allergies/Home Medications Allergies/Adverse Reactions: Allergies Allergy/AdvReac Type Severity Reaction Status Date / Time cefazolin Allergy Diarrhea Verified 06/24/18 21:44 PMH/Surg Hx/FS Hx/Imm Hx Endocrine/Hematology History: Denies: Hx Diabetes Cardiovascular History: Reports: Hx Hypertension - NO MEDICATION FOR- TO SEE DR. ORTEZ 03/05/18 GI History: Reports: Hx Irritable Bowel - A LOT OF TIME REPORTS LOOSE STOOL, Other GI Disorders - C-DIFF-12/2017 History: Denies: Hx Renal Disease Musculoskeletal History: Reports: Hx Arthritis - RIGHT ARM- DOING PHYSICAL THERAPY FOR STIFF JOINTS Sensory History: Denies: Hx Contacts or Glasses, Hx Hearing Aid Opthamlomology History: Denies: Hx Contacts or Glasses Psychiatric History: Reports: Hx Anxiety - NO MEDICATION FOR- SEVERE ANXIETY REGARDING ANESTHESIA, Hx Depression - NO MEDICATION FOR-HAS NOT MD FOR - Cancer History Hx Chemotherapy: No - Surgical History Surgery Procedure, Year, and Place: right wrist repaired with plate and screws- 2007. RIGHT WRIST SURGERY-11/2017. left wrist when 12-13 years old Hx Anesthesia Reactions: No Infectious Disease History: No Infectious Disease History: Denies: Hx of Known/Suspected MRSA, Traveled Outside the [place] in Last 30 Days - Family History Known Family History: Positive: Diabetes - Father - Social History Occupation: Employed Full-time Lives: With Family Alcohol Use: Daily Alcohol Amount: 3-4+ GLASSES OF WINE DAILY-"ABUSES ALCOHOL" PER PATIENT Hx Substance Use: No Substance Use Type: Reports: Marijuana Substance Use Comment - Amount & Last Used: MARIJUANA OCCASIONALLY Hx Tobacco Use: No Smoking Status (MU): Former Smoker Amount Used/How Often: 1 ppd X 30+ years Have You Smoked in the Last Year: No Review of Systems Negative: Fever, Chills Eyes: Negative ENT: Other - Nasal congestion Cardiovascular: Negative Positive: Cough Positive: Abdominal Pain - Lower, Diarrhea. Negative: Vomiting, Nausea Genitourinary: Negative Musculoskeletal: Negative Skin: Negative Neurological: Negative Psychological: Normal All Other Systems Reviewed And Are Negative: Yes Physical Exam - Summary Physical Exam Summary: Appearance: Well-appearing, Well-nourished, lying in bed comfortably Skin: Warm, dry, no obvious rash Eyes: sclera anicteric, no conjunctival pallor ENT: mucous membranes moist, pharynx appears normal Neck: Supple, nontender Respiratory: Clear to auscultation, no signs of respiratory distress Cardiovascular: Normal S1, S2. No murmurs. Normal distal pulses in tibial and radial bilaterally. Abdomen: Soft, nontender, normal active bowel sounds present Musculoskeletal: Normal, Strength/ROM Intact Neurological: A&Ox3, awake and alert, mentation is normal, speech is fluent and appropriate Psychiatric: affect is normal, does not appear anxious or depressed Triage Information Reviewed: Yes Vital Signs On Initial Exam: Initial Vitals Temp Pulse Resp BP Pulse Ox 97.9 F 91 16 169/112 94 06/24/18 21:42 06/24/18 21:42 06/24/18 21:42 06/24/18 21:42 06/24/18 21:42 Vital Signs Reviewed: Yes Diagnostics - Vital Signs Vital Signs Temp Pulse Resp BP Pulse Ox 06/24/18 21:42 97.9 F 91 16 169/112 94 - Laboratory Lab Results: Lab Results 06/24/18 Range/Units 23:01 WBC 7.2 (3.5-10.8) 10^3/uL RBC 4.94 (4.18-5.48) 10^6 /uL Hgb 15.1 (14.0-18.0) g/dL Hct 43 (36-46) % MCV 87 (80-94) fL MCH 31 (27-31) pg MCHC 35 (31-36) g/dL RDW 13 (10.5-15) % Plt Count 266 (150-450) 10^3/uL MPV 8.4 (7.4-10.4) fL Neut % (Auto) 61.2 % Lymph % (Auto) 29.1 % [place] % (Auto) 6.6 % Eos % (Auto) 2.5 % Baso % (Auto) 0.6 % Absolute Neuts (auto) 4.4 (1.5-7.7) 10^3/ul Absolute Lymphs (auto) 2.1 (1.0-4.8) 10^3/ul Absolute Monos (auto) 0.5 (0-0.8) 10^3/ul Absolute Eos (auto) 0.2 (0-0.6) 10^3/ul Absolute Basos (auto) 0 (0-0.2) 10^3/ul Absolute Nucleated RBC 0 10^3/ul Nucleated RBC % 0.1 Result Diagrams: 06/24/18 23:01 06/24/18 23:01 Lab Statement: Any lab studies that have been ordered have been reviewed, and results considered in the medical decision making process. Complex Multi-Symp Course/Dx Course Of Treatment: The patient is a 58 year old male who is presenting to the [facility] with a chief complaint of diarrhea. The patient has had these symptoms before after receiving antibiotics for his post-surgical treatment plan. He has had cold-like symptoms prior to onset of diarrhea and the episodes of diarrhea have been frequent (2 to 3 hours). Blood was also noted in the diarrhea as per patient report. We reviewed his chemistry and hematology findings which were unremarkable. His physical exam showed normal findings. The patient will be discharged home with a dx of C. Diff colitis. He is agreeable with this plan. - Diagnoses Provider Diagnoses: C. difficile colitis Discharge - Sign-Out/Discharge Documenting (check all that apply): Patient Departure - Discharge Home Patient Received Moderate/Deep Sedation with Procedure: No - Discharge Plan Condition: Stable Disposition: HOME Prescriptions: metroNIDAZOLE [Flagyl 500 MG TAB] 500 mg PO TID #45 tab Patient Education Materials: C Diff (Clostridium Difficile) Infection (ED) Referrals: Tk Ortez MD [Primary Care Provider] - Additional Instructions: Presumably this is a recurrence of the colitis you had back in November, so I am empirically starting you back on the flagyl that worked last time. The c. diff test on the stool should be back tomorrow. - Billing Disposition and Condition Condition: STABLE Disposition: Home - Attestation Statements Document Initiated by Michelleibe: Yes Documenting Scribe: Alphonse Panchal Provider For Whom May is Documenting (Include Credential): Dr. Hermes Castillo Scribnubia Attestation: Alphonse Arboleda scribed for Dr. Hermes Castillo on 06/26/18 at 0311. Scribe Documentation Reviewed: Yes Provider Attestation: The documentation as recorded by the Alphonse schaffer accurately reflects the service I personally performed and the decisions made by , Dr. Hermes Castillo Status of Scribe Document: Viewed
[2018-06-24 23:31] LABS: Albumin 4.4 g/dL (3.2-5.2); Albumin/Globulin Ratio 1.5 (1-3); BUN/Creatinine Ratio 20.8 (8-20); Calcium 9.4 mg/dL (8.6-10.3); EGFR African American 126.5 (>60); EGFR Non-African American 104.5 (>60); Globulin 2.9 g/dL (2-4); Total Bilirubin 0.6 mg/dL (0.2-1.0); Total Protein 7.3 g/dL (6.4-8.9)
[2018-06-25 00:02] VITALS: BP 161/101
== END 2018-06-24 23:50 | disposition home or self-care (01) ==
LOC: ED 21:40
DX: A04.72 Enterocolitis due to Clostridium difficile, not specified as recurrent (principal); K58.9 Irritable bowel syndrome, unspecified; Z87.891 Personal history of nicotine dependence
CPT/HCPCS: 36415; 80053; 85025; 85610; 85730; 87493; 99283; A9270-GY

== ENCOUNTER → 2019-02-10 | Day surgery (SDC) | payer OTHER ==
[~2019-02-10] MED LIST changes: +Acetaminophen IV 1GM/100ML * 1,000 MG/100 ML VIAL IVPB ONE; +Acetaminophen IV 1GM/100ML * 100 ML ONE; +Bupivacaine 0.25% SDV* 30 ML ONE; +Clindamycin 900 MG/D5W BAG(*) 900 MG/50 ML BAG IVPB ONE; +HYDROcodone/ACETAMIN 5-325 MG* 1 TAB ONE; +Ketorolac INJ* 30 MG/ML 1 ML VIAL ONE; +Lactated Ringers 1000 ML Bag* 1,000 ML IV SCH; +Lidocaine 2% PF * 5 ML VIAL ONE; +Midazolam* 1 MG/ML 2 ML VIAL (2 MG) ONE; +Naloxone* 0.4 MG/ML 1 ML VIAL IV PRN; +Ondansetron INJ* 2 MG/ML VIAL IV PRN; +Propofol* 10 MG/ML 20 ML BTL ONE; +Sodium Citrate/Citric Acid* 15 ML UDC ONE; +Sodium Citrate/Citric Acid* 15 ML UDC PO ONE; +ceFAZolin 2 GM PREMIX in ORs 2 GM/50 ML BAG ONE; +fentaNYL* 50 MCG/ML 2 ML VIAL (100 MCG VIAL) ONE
[2019-02-10] MEDS: fentaNYL* 50 MCG/ML 2 ML VIAL (100 MCG VIAL) IV PRN ×2 (12:01→12:36)
[2019-02-10 15:22] VITALS: BP 120/79
--- NOTE | 2019-02-10 22:39 | OP ---
DATE OF OPERATION: 02/10/19 - [facility] DATE OF : 64 SURGEON: Vladimir Mason MD DRAFTER CHIEF DESIGN: MARKO Mendoza. An assistant professor of spanish was needed for the procedure to aid in positioning of the arm and retraction. ANESTHESIOLOGIST: Dr. Ahmadi. ANESTHESIA: General. PRE-OP DIAGNOSIS: Ruptured right thumb flexor pollicis longus tendon secondary to very prominent distal radius plate distally. POST-OP DIAGNOSIS: Ruptured right thumb flexor pollicis longus tendon secondary to very prominent distal radius plate distally. OPERATIVE PROCEDURE: Removal of right distal radius plate and screws. INDICATIONS: Olvin has the tendon rupture. I had talked to him about his treatment options. We had talked about treatment options to address the tendon rupture. He does not want to take any time off of work. I told him I did think we should take the plate out to minimize the chance of rupturing any additional flexor tendons. He agrees and wishes to proceed with that and we would have to come back and address the thumb at a later date. ESTIMATED BLOOD LOSS: 2 mL. COMPLICATIONS: None. FINDINGS: See above and below. DESCRIPTION OF PROCEDURE: Olvin was seen in the preoperative holding area. The correct site, side, and procedure were identified. We came back to the operating room. The arm was prepped and draped in the usual fashion and a time- out was performed. The arm was exsanguinated with the Esmarch and the tourniquet was inflated. I reopened his prior volar wrist incision over the FCR tendon. Dissection was carried down. The FCR tendon was freed up from the adhesions that had formed. The subsheath was opened. The ruptured FPL tendon stump proximally was seen and mobilized. I took this down to the distal radius plate. Soft tissue about the plate was released. There was some bone that grown up around the edges of the plate and through the oblong hole that was all removed with the osteotome. I then removed the 3 screws proximally. I then removed all of the screws distally, the most ulnar screw with the head from the shaft to the peg that was present. The radial styloid screw would not come out and so I fractured 3 screwdriver tips trying to excise it. At this point, it was the only thing holding the plate. Since the plate was sitting so proud distally, I went ahead and removed all the soft tissue between the end of the plate and the bone. I then noted that the screw looked more like a smooth peg and so I thought it probable could just pull the plate off and have the screw come with it. I did go ahead and free up the plate proximally and was able to toggle it and eventually the plate with that screw still attached came out. It was a partially threaded screw. Lastly, the most ulnar peg that was sitting quite prominent where the head had broken off, I freed up the soft tissue around that. I put a vise environmental research scientist on that and was able to remove it. At this point, all the hardware as removed. I excised all the sharp bony edges with a rongeur. Everything was looking good. The subcutaneous tissue was reapproximated with Vicryl. The skin was closed with cholo. 0.25% Marcaine was then infiltrated all around the area. A short -arm plaster wrist splint was applied. He was taken to the recovery room in stable condition. [id number]/CPS #: [id number] MTDD
== END | disposition home or self-care (01) ==
LOC: OR 06:54
PROVIDERS: ATTEND Orthopaedic Surgery Hand Surgery
DX: T84.122A Displacement of internal fixation device of bone of right forearm, initial encounter (principal); Y83.1 Surgical operation with implant of artificial internal device as the cause of abnormal reaction of the patient, or of later complication, without mention of misadventure at the time of the procedure; S52.501S Unspecified fracture of the lower end of right radius, sequela; X58.XXXS Exposure to other specified factors, sequela; Z87.891 Personal history of nicotine dependence; I10 Essential (primary) hypertension; E78.00 Pure hypercholesterolemia, unspecified
CPT/HCPCS: 76000; 88300; A9270-GY; J0690; J1885; J2250; J2704; J3010; J3490

== ENCOUNTER 2019-02-27 01:33 | Emergency (ER) | payer OTHER ==
--- OUTSIDE RECORDS SUMMARY | 2019-02-27 02:03 | XMS REPORT | Continuity of Care Document ---
:1960 External Reference #:[id number] Author Name Ruby Ritter Care Team Providers Name Role Phone Heidi Estrada MD - Internal Care Team Information Scalemaker [phone] Tk Millan III, MD - Internal Care Team Information Scalemaker Medicine Marcial Suazo MD - Ophthalmology Care Team Information Scalemaker Problems Active Problems Provider Date Dyslipidemia Gerard Hernandes M.D. Onset: 11/10/2014 Multiple fractures of ribs, right side, Paula Graham M.D. Onset: 2017 initial encounter for closed fracture Chest pain Paula Graham M.D. Onset: 12/22/2017 Essential hypertension Paula Graham M.D. Onset: 12/22/2017 Noninfectious gastroenteritis Vijay Sy N.P. Onset: 12/27/2017 Chronic ulcerative pancolitis Addi Mak MD Onset: 12/28/2017 Clostridial enteric disease Addi Mak MD Onset: 12/28/2017 Displaced fracture of head of right Vladimir Mason MD Onset: 01/22/2018 radius, subsequent encounter for closed fracture with routine healing Unspecified dislocation of right Vladimir Mason MD Onset: 01/22/2018 ulnohumeral joint, subsequent encounter Lesion of ulnar nerve Vladimir Mason MD Onset: 02/27/2018 Disorder due to and following fracture Vladimir Mason MD Onset: 12/11/2018 of upper limb Social History Type Date Description Comments Sex Unknown Tobacco Use Start: Unknown End: Former Cigarette Smoker quit around Oct; max 1 ppd, began in his 20s ETOH Use Drinks 5 Alcoholic 1 bottle of wine Beverages Per Day daily Recreational Drug Use Never Used Drugs Tobacco Use Start: Unknown End: Patient is a former quit in 2012 Unknown smoker Smoked up to pack a day X 20 years. Smoking Status Reviewed: 02/04/19 Patient is a former quit in 2012 smoker Smoked up to pack a day X 20 years. Exercise Type/Frequency Exercises regularly active at work, walks with hunting Allergies, Adverse Reactions, Alerts Active Allergies Reaction Severity Comments Date Cephalexin c.diff diarrhea 01/10/2018 Inactive Allergies NKDA 09/22/2008 Medications Active Medications SIG Qnty Indications Ordering Date Provider Atorvastatin Calcium 1 by mouth qhs 90tabs E78.00 Xiomara Phillips, 02/03/2019 Minna, FACP 20mg Tablets Amlodipine Besylate Take 1 Tablet By 90tabs I10 Tk EMaryuri 04/08/2018 5mg Mouth Every Day Minna Ortez Tablets Lisinopril 1 by mouth every 90tabs Tk Loya 03/19/2018 20mg Tablets day Minna Ortez Blood Pressure (+) htn- for home 1units I10 Tk Loya 11/24/2014 Monitor Manual bp monitoring Minna Ortez Inflate [facility] Immunizations CPT Code Status Date Vaccine Lot # [id number] Given 03/14/2017 Influenza Virus Vaccine, Quadrivalent, Split, Preservative Free 34962 Given 11/09/2016 Influenza Virus Vaccine, Quadrivalent, Split, Preservative Free 92428 Given 11/24/2014 Influenza Virus Vaccine, Quadrivalent, Split, [id number] Preservative Free [id number] Given 01/09/2012 Tdap - Tetanus/Diptheria/Acellular Pertussis [id number] Given 01/09/2012 Influenza Virus 3Yrs & Over Vital Signs Date Vital Result Comment 02/04/2019 9:14am Height 71 inches 5'11" Weight 188.00 lb Heart Rate 68 /min BP Systolic 124 mmHg BP Diastolic 88 mmHg Respiratory Rate 18 /min Body Temperature 98.1 F Pain Level 3 BMI (Body Mass Index) 26.2 kg/m2 02/03/2019 12:57pm Height 71 inches 5'11" Weight 198.00 lb Heart Rate 92 /min BP Systolic Sitting 136 mmHg Rue reg cuff BP Diastolic Sitting 85 mmHg Rue reg cuff Body Temperature 97.4 F O2 % BldC Oximetry 98 % BMI (Body Mass Index) 27.6 kg/m2 Results Description No Information Available Procedures Date Code Description Status 02/03/2019 17120 EKG Tracing & Interpretation Completed Medical Devices Description No Information Available Encounters Type Date Location Provider Dx Diagnosis Office Visit 12/11/2018 [facility] Tk Loya M79.645 Pain in left 2:20p Medicine - Alli Ortez M.D. finger(s) Office Visit 12/11/2018 [facility] Vladimir Mason, S52.591S Other fractures 9:30a at [place] of lower end of right radius, sequela M66.341 Spontaneous rupture of flexor tendons, right hand Office Visit 10/07/2018 9:00a [facility] Internal Tk Loya I10 Essential ( primary) Medicine - Alli Ortez M.D. hypertension E78.00 Pure hypercholesterolemia, unspecified Assessments Date Code Description Provider 02/04/2019 S52.591S Other fractures of lower end of right Vladimir Mason MD radius, sequela 02/03/2019 Z01.818 Encounter for other preprocedural Xiomara Phillips M.D., FACP examination 02/03/2019 I10 Essential (primary) hypertension Xiomara Phillips M.D., FACP 02/03/2019 E78.00 Pure hypercholesterolemia, unspecified Xiomara Phillips M.D., FACP 02/03/2019 S52.591S Other fractures of lower end of right Xiom[facility] Phillips M.D. , [facility] radius, sequela 12/11/2018 S52.591S Other fractures of lower end of right Vladimir Mason MD radius, sequela 12/11/2018 M66.341 Spontaneous rupture of flexor tendons, Vladimir Mason MD right hand 12/11/2018 M79.645 Pain in left thumb Tk Ortez M.D. 10/07/2018 I10 Essential (primary) hypertension Tk Ortez M.D. 10/07/2018 E78.00 Pure hypercholesterolemia, unspecified Tk Ortez M.D. Plan of Treatment Future Appointment(s):02/21/2019 8:30 am - YESENIA Olivia at [facility] at Przmrw9104/07/2019 8:30 am - Xiomara Phillips M.D., FACP at [facility] Internal Medicine - [facility]02/10/2019 1:45 pm - Vladimir Mason MD at [facility] at [place]rt[place]2404/10/2019 9:20 am - Tk Ortez M.D. at [facility] Internal Medicine - [facility]02/04/2019 - Vladimir Mason, MDS52.591S Other fractures of lower end of right radius, sequelaFollow up:Follow up: 10-14 days postop Functional Status Description No Information Available Mental Status Description No Information Available Referrals Description No Information Available
--- OUTSIDE RECORDS SUMMARY | 2019-02-27 02:03 | XMS REPORT | Continuity of Care Document ---
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 Onset: 11/10/2014 Multiple fractures of ribs, right side, Paula Graham M.D. Onset: 2017 initial encounter for closed fracture Chest pain aPula Graham M.D. Onset: 12/22/2017 Essential hypertension Paula [...] day X 20 years. Smoking Status Reviewed: 02/03/19 Patient is a former quit in 2012 [...] Take 1 Tablet By 90tabs I10 Tk Loya 04/08/2018 5mg Mouth Every Day Minna Ortez Tablets Lisinopril 1 by mouth every 90tabs Tk Loya 03/19/2018 20mg Tablets day Minna Ortez Blood Pressure (+) htn- for home 1units I10 Tk Loya 11/24/2014 Monitor Manual bp monitoring Minna Ortez Inflate [facility] Immunizations CPT Code Status Date Vaccine Lot # [id number] Given 03/14/2017 Influenza Virus Vaccine, Quadrivalent, Split, Preservative Free 91278 Given 11/09/2016 Influenza Virus Vaccine, Quadrivalent, Split, Preservative Free 91678 Given 11/24/2014 Influenza Virus Vaccine, Quadrivalent, Split, x7yr2 Preservative Free 01883 Given 01/09/2012 Tdap - Tetanus/Diptheria/Acellular Pertussis [id number] 78280 Given 01/09/2012 Influenza Virus 3Yrs & Over Vital Signs Date Vital Result Comment 02/03/2019 12:57pm Height 71 inches 5'11" Weight 198.00 lb Heart Rate 92 /min BP Systolic Sitting 136 mmHg Rue reg cuff BP Diastolic Sitting 85 mmHg Rue reg cuff Body Temperature 97.4 F O2 % BldC Oximetry 98 % BMI (Body Mass Index) 27.6 kg/m2 12/11/2018 2:10pm Height 71 inches 5'11" Weight 190.00 lb Heart Rate 79 /min BP Systolic 143 mmHg BP Diastolic 94 mmHg Body Temperature 97.0 F O2 % BldC Oximetry 95 % BMI (Body Mass Index) 26.5 kg/m2 Results Description No Information Available Procedures Date Code Description Status 02/03/2019 56628 EKG Tracing & Interpretation Completed Medical Devices Description No Information Available Encounters Type Date Location Provider Dx Diagnosis Office Visit 12/11/2018 [facility] Internal Tk Loya M79.645 Pain in left 2:20p Medicine - Alli Ortez M.D. finger(s) Office Visit 12/11/2018 [facility] Vladimir Mason, S52.591S Other fractures 9:30a at [place] of lower end of right radius, sequela M66.341 Spontaneous rupture of flexor tendons, right hand Office Visit 10/07/2018 9:00a Sybil Loya I10 Essential ( primary) Medicine - Alli Ortez M.D. hypertension E78.00 Pure hypercholesterolemia, unspecified Assessments Date Code Description Provider 02/03/2019 Z01.818 Encounter for other preprocedural Xiomara Phillips M.D., FACP examination 02/03/2019 I10 Essential (primary) hypertension Xiomara Phillips M.D., FACP 02/03/2019 E78.00 Pure hypercholesterolemia, unspecified Xiomara Phillips M.D., FACP 02/03/2019 S52.591S Other fractures of lower end of right Xiomara Phillips M.D. , FACP radius, sequela 12/11/2018 S52.591S Other fractures of lower end of right Vladimir Mason MD radius, sequela 12/11/2018 M66.341 Spontaneous rupture of flexor tendons, Vladimir Mason MD right hand 12/11/2018 M79.645 Pain in left thumb Tk Ortez M.D. 10/07/2018 I10 Essential (primary) hypertension Tk Ortez M.D. 10/07/2018 E78.00 Pure hypercholesterolemia, unspecified Tk Ortez M.D. Plan of Treatment Future Appointment(s):04/07/2019 8:30 am - Xiomara Phillips M.D., FACP at [facility] Internal Medicine - [facility]02/04/2019 9:00 am - Vladimir Mason MD at [facility] at B[place]ub4702/10/2019 1:45 pm - Vladimir Mason MD at [facility] at Dpwqrx8404/10/2019 9:20 am - Tk Ortez M.D. at [facility] Internal Medicine - [facility]02/03/2019 - [facility]ara Phillips M.D., [facility] Encounter for other preprocedural examinationComments:MEDICAL CLEARANCE PRIOR TO SURGERY: I will contact your surgeon with the results of today's visit.Unless you are told otherwise, you should take all your usual oral medications on the day of your intended procedure with water. You should hold aspirin or aspirin containing products.Follow up:as [id number] Essential (primary) [id number] Pure hypercholesterolemia, unspecifiedNew Medication: Atorvastatin Calcium 20 mg - 1 by mouth qhsFollow up:2 months/after blood workS52.591S Other fractures of lower end of right radius, sequelaComments: WRIST SURGERY:For removal of hardware and joint fusion of the right thumb.Z01.818 Encounter for other preprocedural examinationComments:MEDICAL CLEARANCE PRIOR TO SURGERY:I will contact your surgeon with the results of today 's visit.Unless you are told otherwise, you should take all your usual oral medications on the day of your intended procedure with water. You should hold aspirin or aspirin containing products.Follow up:as [id number] Essential (primary ) [id number] Pure hypercholesterolemia, unspecifiedNew Medication: Atorvastatin Calcium 20 mg - 1 by mouth qhsFollow up:2 months/after blood workS52.591S Other fractures of lower end of right radius, sequelaComments: WRIST SURGERY:For removal of hardware and joint fusion of the right thumb. Functional Status Description No Information Available Mental Status Description No Information Available Referrals Description No Information Available
--- OUTSIDE RECORDS SUMMARY | 2019-02-27 02:03 | XMS REPORT | Continuity of Care Document ---
:1960 External Reference #:[id number] Author Name Vladimir Mason MD (transmitted by agent of provider Carlo Kathleen) Address [address] [place] [id number] Care Team Providers Name Role Phone Heidi Estrada MD - Internal Care Team Information Wire Wrapping Machine Operator Medicine Tk Ortez III, MD - Internal Care Team Information Wire Wrapping Machine Operator Medicine Marcial Suazo MD - Ophthalmology Care Team Information Wire Wrapping Machine Operator [phone] Problems Active Problems Provider Date Dyslipidemia Gerard [...] Monitor Manual bp monitoring Minna Ortez [facility]ate [facility] [place] CPT Code Status Date Vaccine Lot # [id number] Given 03/14/2017 Influenza Virus Vaccine, Quadrivalent, Split, Preservative Free [id number] Given 11/09/2016 Influenza Virus Vaccine, Quadrivalent, Split, Preservative Free [id number] Given 11/24/2014 Influenza Virus Vaccine, Quadrivalent, Split, [id number] Preservative Free [id number] Given 01/09/2012 Tdap - Tetanus/Diptheria/Acellular Pertussis [id number] Given 01/09/2012 Influenza Virus 3Yrs & Over [...] Available Procedures Date Code Description Status 02/03/2019 73288 EKG Tracing & Interpretation Completed Medical Devices Description No Information Available Encounters Type Date Location Provider Dx Diagnosis Office Visit 12/11/2018 [facility] Internal Tk Loya M79.645 Pain in left 2:20p Medicine - Alli Ortez M.D. finger(s) Office Visit 12/11/2018 [facility] Vladimir Mason, S52.591S Other fractures 9:30a at [place] of lower end of right radius, sequela M66.341 Spontaneous rupture of flexor tendons, right hand Office Visit 10/07/2018 9:00a [facility] Karina Loya I10 Essential ( primary) Medicine - [...] of Treatment Future Appointment(s):02/21/2019 8:30 am - Favian Jones RPA-Ave at [facility] at [id number]/07/2019 8:30 am - Xiomara Phillips M.D., FACP at [facility] Internal Medicine - [facility]02/10/2019 1:45 pm - Vladimir Mason MD at [facility] at [id number]/10/2019 9:20 am - Tk Ortez M.D. at [facility] Internal Medicine [facility]02/04/2019 - Vladimir Mason MDS52.591S Other fractures of lower end of right radius, sequelaFollow up:Follow up: 10-14 days postop Functional Status Description No Information Available Mental Status Description No Information Available Referrals Description No Information Available
--- NOTE | 2019-02-27 02:09 | ED ---
Abdominal Pain/Male - HPI Summary HPI Summary: Pt is a 59 y/o M presenting to the ED with a chief complaint of abd pain in the center of his abd. He states he noticed it this morning around 0830/0900, and it did not go away. It comes and goes in waves, is intermittent in severity, and does not radiate. He reports some diarrhea and decreased appetite. He denies fever, chills, nausea, vomiting. He ate poorly yesterday due to the holiday and drank a significant amount of alcohol. Notes hes had his flu shot. - History of Current Complaint Chief Complaint: EDAbdPain Stated Complaint: ABD PAIN PER PT Time Seen by Provider: 02/27/19 01:57 Hx Obtained From: Patient Onset/Duration: Gradual Onset, Lasting Hours, Still Present Timing: Intermittent, Lasting Hours Severity Initially: Mild Severity Currently: Moderate Pain Intensity: 6 Pain Scale Used: 0-10 Numeric Location: Diffuse Radiates: No Aggravating Factor(s): Nothing Alleviating Factor(s): Nothing Associated Signs And Symptoms: Positive: Decreased Appetite, Diarrhea. Negative : Fever, Nausea, Vomiting - Allergies/Home Medications Allergies/Adverse Reactions: Allergies Allergy/AdvReac Type Severity Reaction Status Date / Time cefazolin Allergy Unknown Verified 02/27/19 01:36 Reaction Details cephalexin Allergy Unknown Verified 02/27/19 01:36 Reaction Details PMH/Surg Hx/FS Hx/Imm Hx Previously Healthy: Yes Endocrine/Hematology History: Denies: Hx Diabetes Cardiovascular History: Reports: Hx Hypertension - HAS MEDICATION-REPORTS HAS BEEN FORGETTING TO TAKE Denies: Hx Pacemaker/ICD, Other Cardiovascular Problems/Disorders Respiratory History: Reports: Other Respiratory Problems/Disorders - SNORES GI History: Reports: Hx Irritable Bowel - HX OF- REPORTS IS ASSOCIATED WITH ANXIETY, Other GI Disorders - C-DIFF-12/2017 History: Denies: Hx Renal Disease, Other Problems/Disorders Musculoskeletal History: Denies: Hx Arthritis, Other Musculoskeletal History Sensory History: Denies: Hx Contacts or Glasses, Hx Hearing Aid Opthamlomology History: Denies: Hx Contacts or Glasses Neurological History: Denies: Other Neuro Impairments/Disorders Psychiatric History: Reports: Hx Anxiety - HX OF-REPORT ALOT REGARDING ANESTHESIA Denies: Hx Depression - Cancer History Hx Chemotherapy: No - Surgical History Surgery Procedure, Year, and Place: right wrist repaired with plate and screws- 2007. RIGHT WRIST SURGERY-11/2017. left wrist when 12-13 years old. INGUINAL HERNIA REPAIR Hx Anesthesia Reactions: Yes - FEAR OF ANESTHESIA - Immunization History Date of Tetanus Vaccine: 01/13 Date of Influenza Vaccine: unk Infectious Disease History: No Infectious Disease History: Denies: Hx of Known/Suspected MRSA, Traveled Outside the [place] in Last 30 Days - Family History Known Family History: Positive: Diabetes - Father - Social History Alcohol Use: Daily Alcohol Amount: 2-4 BEERS IN THE EVENING Hx Substance Use: No Substance Use Type: Reports: None Substance Use Comment - Amount & Last Used: MARIJUANA OCCASIONALLY Hx Tobacco Use: No Smoking Status (MU): Former Smoker Amount Used/How Often: 1 ppd X 30+ years Have You Smoked in the Last Year: No Review of Systems - ROS Summary Review of Systems Summary: Home Medications Medication Instructions Recorded Confirmed Type amLODIPine TAB* [Norvasc 5 mg TAB*] 10 mg PO QAM 03/08/18 02/27/19 History lisinopriL [Lisinopril] 20 mg PO DAILY 02/10/19 02/27/19 History Positive: Other - decreased appetite. Negative: Fever, Chills Positive: Abdominal Pain, Diarrhea. Negative: Vomiting, Nausea All Other Systems Reviewed And Are Negative: Yes Physical Exam - Summary Physical Exam Summary: General: Well-developed, Well-nourished male. Mildly anxious appearing HEENT: Normocephalic, Atraumatic. Eyes: Conjuctiva normal, PERRL. Oropharynx: Clear, mucous membranes moist, (-) exudates. Neck: Soft, FROM, (-) lymphadenopathy, (-) thyromegaly, (-) JVD. Cardiovascular: Normal sinus rhythm, (-) murmur. Lungs: Clear to auscultation bilaterally (-) wheezes, (-) rales, (-) rhonchi. Abdomen: Soft, mild tenderness in the mid-abdomen, non-distended, (-) organomegaly, normal bowel sounds. Back: (-) CVA tenderness Extremities: No edema. Skin: Warm, dry, (-) rash. Neuro: Alert and oriented x3, no focal deficits. Psychiatric: Mood normal, affect mildly anxious Triage Information Reviewed: Yes Vital Signs On Initial Exam: Initial Vitals Temp Pulse Resp BP Pulse Ox 97 F 98 16 179/121 96 02/27/19 01:33 02/27/19 01:33 02/27/19 01:33 02/27/19 01:33 02/27/19 01:33 Vital Signs Reviewed: Yes Procedures - Sedation Patient Received Moderate/Deep Sedation with Procedure: No Diagnostics - Vital Signs Vital Signs Temp Pulse Resp BP Pulse Ox 02/27/19 01:33 97 F 98 16 179/121 96 - Laboratory Result Diagrams: 02/27/19 02:15 02/27/19 02:15 Lab Statement: Any lab studies that have been ordered have been reviewed, and results considered in the medical decision making process. Re-Evaluation - Re-Evaluation 1st re-eval Re-Evaluation Time: 04:20 Change: Improved Comment: I have discussed results with the patient and abd pain is resolved. Discussed symptoms that warrant immediate return to ED. Abdominal Pain Male Course/Dx - Course Course Of Treatment: 59 year old male presents feeling poorly since this am. abdominal discomfort. cramping, diarrhea. no fevers or vomiting. excessive food and alcohol yesterday. In the ED course, pt received 15mg Toradol and 4mg Zofran. Also received 10mg Reglan and 2 liters of fluids. patient felt much better. workup essentially negative. patient discharged to home, declined work note. follow up with PCP, follow up sooner for any worsening symptoms. - Diagnoses Provider Diagnoses: Abdominal pain Discharge ED - Sign-Out/Discharge Documenting (check all that apply): Patient Departure - Discharge Plan Condition: Stable Disposition: HOME Patient Education Materials: Acute Abdominal Pain (ED) Referrals: Tk Ortez MD [Primary Care Provider] - Additional Instructions: Please follow up with your primary care physician within three days. Please return to ED for any new or worsening symptoms. - Billing Disposition and Condition Condition: STABLE Disposition: Home - Attestation Statements Document Initiated by Scribe: Yes Documenting Scribe: Jailene Carter Provider For Whom May is Documenting (Include Credential): Ebony Sarabia MD. Scribe Attestation: Jailene Arboleda, scribed for Ebony Sarabia MD. on 02/27/19 at 1933. Scribe Documentation Reviewed: Yes Provider Attestation: The documentation as recorded by the Jailene schaffer accurately reflects the service I personally performed and the decisions made by me, Ebony Sarabia MD. Status of Scribe Document: Viewed
[2019-02-27 02:26] LABS: ABS Basophils 0.1 10^3/ul (0-0.2); ABS Eosinophils 0.1 10^3/ul (0-0.6); ABS Lymphocytes 1.4 10^3/ul (1.0-4.8); ABS Monocytes 0.5 10^3/ul (0-0.8); ABS Neutrophils 7.9 10^3/ul (1.5-7.7); Eosinophil % 1.2 %; Hematocrit 46 % (42-52); Hemoglobin 16.4 g/dL (14.0-18.0); Lymphocyte % 14.4 %; Mean Corpuscular HGB Conc 36 g/dL (31-36); Mean Corpuscular Hemoglobin 31 pg (27-31); Mean Corpuscular Volume 87 fL (80-94); Mean Platelet Volume 8.2 fL (7.4-10.4); Platelet Count 242 10^3/uL (150-450); Red Cell Distribution Width 13 % (10-15)
[2019-02-27 02:28] LABS: INR 0.93 (0.82-1.09)
[2019-02-27] MEDS: Ketorolac INJ* 30 MG/ML 1 ML VIAL IV PUSH ONE (02:30)
[2019-02-27] MEDS: Ondansetron INJ* 2 MG/ML VIAL IV ONE (02:30)
[2019-02-27] MEDS: NS 0.9% 1000 ML** 1,000 ML IV ONE ×2 (02:31→03:20)
[2019-02-27 02:38] LABS: Albumin/Globulin Ratio 1.4 (1-3); BUN/Creatinine Ratio 23.9 (8-20); C Reactive Protein 1.59 mg/L (<8.01); Calcium 8.9 mg/dL (8.6-10.3); EGFR African American 147.9 (>60); EGFR Non-African American 122.3 (>60); Globulin 2.9 g/dL (2-4); Potassium 3.7 mmol/L (3.5-5.0); Total Bilirubin 0.9 mg/dL (0.2-1.0); Total Protein 6.9 g/dL (6.4-8.9)
[2019-02-27] MEDS: Metoclopramide IV* 5 MG/ML 2 ML VIAL IV ONE (03:01)
[2019-02-27 04:09] LABS: Urine Appearance Clear; Urine Bilirubin Negative (Negative); Urine Blood Negative (Negative); Urine Color Yellow; Urine Glucose Negative (Negative); Urine Ketones Negative (Negative); Urine Nitrite Negative (Negative); Urine Protein Negative (Negative); Urine Specific Gravity 1.028 (1.010-1.030); Urine Urobilinogen Negative (Negative)
[2019-02-27 04:29] VITALS: BP 137/83
== END 2019-02-27 04:23 | disposition home or self-care (01) ==
LOC: ED 01:33
DX: R10.9 Unspecified abdominal pain (principal); I10 Essential (primary) hypertension; Z87.891 Personal history of nicotine dependence; Z88.1 Allergy status to other antibiotic agents; Z79.899 Other long term (current) drug therapy
CPT/HCPCS: 36415; 80053; 81003; 82150; 83605; 83690; 85025; 85610; 86140; 96361; 96374; 96375; 99283; J1885; J2405; J2765